=== PATIENT | male | born 1995 | race Caucasian/White ===

== ENCOUNTER → 2020-09-10 08:38 | Outpatient (BNVA) | payer OTHER, SELFPAY | PROVIDERS: PCP Physician Assistant; Visit Provider Surgery | DX: E66.01 Morbid (severe) obesity due to excess calories (principal); F17.210 Nicotine dependence, cigarettes, uncomplicated; Z68.43 Body mass index [BMI] 50.0-59.9, adult | CPT/HCPCS: 99202 ==

== ENCOUNTER 2020-09-15 07:15 | Outpatient (REF) | payer OTHER, SELFPAY ==
--- NOTE | ~2020-09-15 | XR_ITS ---
EXAMINATION: XR CHEST CLINICAL INFORMATION: Shortness of breath COMPARISON: None TECHNIQUE: 2 views of the chest were obtained. FINDINGS: Cardiac silhouette is normal in size. Lungs are mildly hypoinflated. Subtle linear opacity of the right lung base. No gross lobar consolidation. No pleural effusion or pneumothorax. No acute osseous abnormality. XR/XR chest 2V IMPRESSION: Subtle linear opacity although right lung base. This may represent atelectasis or attenuation of lung markings due to hypoinflated lungs, however, a developing infiltrate is also within the differential. Unfortunately there is no prior imaging available for comparison. Clinical correlation is recommended. Follow-up imaging can be obtained as clinically indicated.
--- NOTE | 2020-09-15 07:39 | ECG_ITS ---
Test Reason : R06.02 SOB Blood Pressure : / mmHG Vent. Rate : 079 BPM Atrial Rate : 079 BPM P-R Int : 134 ms QRS Dur : 090 ms QT Int : 378 ms P-R-T Axes : 066 044 025 degrees QTc Int : 433 ms Normal sinus rhythm Normal ECG No previous ECGs available Referred By: Sunita Domínguez Electronically Signed By:AGATA LAND MD
[2020-09-15 08:32] LABS: MANUAL DIFF FLAG NO
[2020-09-15 08:40] LABS: Basophils Percent Auto 0.5 % (0-2); Eosinophils Absolute Auto 0.2 X10*3/uL (0.0-0.4); Eosinophils Percent Auto 2.9 % (0-4); Hematocrit 45.9 % (42-52); Hemoglobin 14.6 g/dl (14.0-18.0); Imm Gran Abs Auto 0.03 X10*3/uL (0.00-0.03); Imm Gran Pct Auto 0.5 % (0.0-0.4); Lymphocytes Absolute Auto 2.2 X10*3/uL (1.2-4.9); Lymphocytes Percent Auto 35.8 % (20-40); Mean Corpuscular HGB Conc 31.8 g/dl (31.0-36.0); Mean Corpuscular Hemoglobin 27.3 pg (27.0-33.0); Mean Corpuscular Volume 85.8 fL (80-98); Mean Platelet Volume 10.6 fL (9.4-12.4); Monocytes Absolute Auto 0.6 X10*3/uL (0.1-1.2); Monocytes Percent Auto 8.9 % (2-11); Neutrophils Absolute Auto 3.2 X10*3/uL (2.0-8.3); Neutrophils Percent Auto 51.4 % (45-73); Platelet Count 282 X10*3/uL (160-400); Red Blood Count 5.35 X10*6/uL (4.60-5.80); Red Cell Distribution Width 13.1 % (11.0-16.0); White Blood Count 6.3 X10*3/uL (4.8-10.8)
[2020-09-15 09:18] LABS: Alanine Aminotransferase 46 U/L (0-40); Albumin Level 4.3 g/dL (3.5-5.0); Alkaline Phosphatase 69 U/L (39-117); Anion Gap 13 (12-20); Aspartate Amino Transferase 32 U/L (5-37); Bilirubin Total 0.5 mg/dL (0.0-1.0); Blood Urea Nitrogen 17 mg/dL (9-16); C Reactive Protein 0.44 mg/dL (< or = 0.50); Calcium 9.5 mg/dL (8.4-10.2); Carbon Dioxide 25 mmol/L (22-29); Chloride 106 mmol/L (96-108); Cholesterol 137 mg/dL; Estimated Glomerular Filt Rate > 60; Glucose Fasting 98 mg/dL (60-99); HDL Cholesterol 23 mg/dL; Iron 67 mcg/dL (45-160); LDL Cholesterol Calculated 87 mg/dl; Percent Iron Saturation 19 % (15-50); Potassium 4.9 mmol/L (3.3-5.1); Sodium 139 mmol/L (135-145); Total Iron Binding Capacity 348 mcg/dL (228-428); Total Protein 7.2 g/dL (6.5-8.0); Triglycerides 135 mg/dL; Unsaturated Iron Binding 281 ug/dL
[2020-09-15 09:19] LABS: Estimated Average Glucose 103 mg/dL; Hemoglobin A1c % 5.2 %
[2020-09-15 09:39] LABS: Thyroid Stimulating Hormone 2.48 uIU/mL (0.32-4.0); Vitamin D 25-OH Total 13.7 ng/mL (>30)
[2020-09-15 11:00] LABS: Vitamin B12 329 pg/mL (200-900)
[2020-09-16 12:56] LABS: Calcium (PTHI) 9.3 mg/dL (8.6-10.3); PTHI 59 pg/mL (14-64)
[2020-09-16 14:32] LABS: H Pylori Breath Test NOT DETECTED (NOT DETECTED)
[2020-09-18 15:56] LABS: Zinc 81 mcg/dL (60-130)
[2020-09-18 19:37] LABS: Vitamin A 51 mcg/dL (38-98)
[2020-09-19 13:12] LABS: Vitamin B1 9 nmol/L (8-30)
== END 2020-09-15 07:16 | disposition home or self-care (01) ==
LOC: HO.LAB 07:15
PROVIDERS: PCP Physician Assistant; Visit Provider Surgery
DX: Z01.818 Encounter for other preprocedural examination (principal); K91.2 Postsurgical malabsorption, not elsewhere classified; R06.02 Shortness of breath; Z90.3 Acquired absence of stomach [part of]
CPT/HCPCS: 36415; 71046; 80053; 80061; 82306; 82607; 83013; 83036; 83540; 83970; 84425; 84443; 84590; 84630; 85025; 86140; 93005; 99211

== ENCOUNTER → 2020-09-24 08:12 | Outpatient (BNVA) | payer OTHER, SELFPAY | PROVIDERS: PCP Physician Assistant; Visit Provider Surgery | DX: E66.01 Morbid (severe) obesity due to excess calories (principal); Z68.42 Body mass index [BMI] 45.0-49.9, adult | CPT/HCPCS: 99212 ==

== ENCOUNTER → 2020-10-08 08:08 | Outpatient (BNVA) | payer OTHER, SELFPAY | PROVIDERS: PCP Physician Assistant; Visit Provider Dietitian, Registered | DX: E66.01 Morbid (severe) obesity due to excess calories (principal); Z68.42 Body mass index [BMI] 45.0-49.9, adult | CPT/HCPCS: 97802 ==

== ENCOUNTER → 2020-10-29 14:41 | Outpatient (BNVA) | payer OTHER, SELFPAY | PROVIDERS: PCP Physician Assistant; Visit Provider Physician Assistant | DX: E66.01 Morbid (severe) obesity due to excess calories (principal); Z68.42 Body mass index [BMI] 45.0-49.9, adult | CPT/HCPCS: 99212 ==

== ENCOUNTER → 2020-11-18 08:14 | Outpatient (BNVA) | payer OTHER, SELFPAY | PROVIDERS: PCP Physician Assistant; Visit Provider Dietitian, Registered | DX: E66.01 Morbid (severe) obesity due to excess calories (principal); Z68.42 Body mass index [BMI] 45.0-49.9, adult | CPT/HCPCS: 97803 ==

== ENCOUNTER → 2020-12-22 11:01 | Outpatient (BNVA) | payer OTHER, SELFPAY | PROVIDERS: PCP Physician Assistant; Visit Provider Surgery ==

== ENCOUNTER 2024-02-07 18:01 | Inpatient (IN) | payer OTHER, SELFPAY ==
--- OUTSIDE RECORDS SUMMARY | 2024-02-07 18:03 | XMS_ITS | Continuity of Care Document ---
Author Organization [facility] ter Address [address] [place] [address]- Care Team Providers Care Hot Stick Man Name Role Phone Judy RUGGIERO, Kaleb Perez Primary Care Physi slava [place] [facility] [place] Date(s): 11/29/21 - 11/29/[address] [address]- Discharge Disposition: A-D/C Walkout Attending Physician: Not on Staff, Attending MD Admitting Physician: Not on Staff, Admitting MD Referring Physician: Not on Staff, Referring MD Allergies, Adverse Reactions, Alerts No Known Allergies Medications Albuterol (Eqv-ProAir HFA) Inhalation, Every 6 hours, 0 Refills, Maintenance, 07/27/21 9:51:00 EST, Partial fill upon patient request if the prescription is for a schedule II opioid drug. Start Date: 07/27/21 Status: Ordered Celecoxib By Mouth, 0 Refills, Maintenance, 07/27/21 9:52:00 EST, Partial fill upon patient request if the prescription is for a schedule II opioid drug. Start Date: 07/27/21 Status: Ordered Fiber Tabs = 625 mg, By Mouth, 4 times a day, 0 Refills, Maintenance, 07/27/21 9:52:00 EST, Partial fill upon patient request if the prescription is for a schedule II opioid drug. Start Date: 07/27/21 Status: Ordered Multivitamin Daily, 0 Refills, Maintenance, 07/27/21 9:52:00 EST, Partial fill upon patient request if the prescription is for a schedule II opioid drug. Start Date: 07/27/21 Status: Ordered Vitamin D 54241 iu oral capsule 1, capsule, By Mouth, Every week, # 30 capsule, Refills 0, Maintenance, 07/27/21 9:52:00 EST, Partial fill upon patient request if the prescription is for a schedule II opioid drug. Start Date: 07/27/21 Status: Ordered Problem List Condition Effective Dates Status Health Status Inform ant Gastroesophageal reflux disease(Confirmed) Active Severe obesity(Confirmed) Active Vital Signs Most recent to oldest [Reference Range]: 1 2 Oxygen Saturation [94-100 %] 100 % (11/29/21 5:28 PM) 98 % (11/29/21 5:06 PM) Pulse Rate [55-90 bpm] 78 bpm (11/29/21 5:28 PM) 95 bpm *H* (11/29/21 5:06 PM) Blood Pressure [90-138/55-84 mm Hg] 124/ 75mm Hg (11/29/21 5:28 PM) Respiratory Rate [16-30 br/min] 18 br/mi n (11/29/21 5:28 PM) Temperature [96.8-100.4 DegF] 98.6 DegF (11/29/21 5:28 PM) Mode of Delivery (Oxygen) Room air (11/29/21 5:28 PM) Room air (11/29/21 5:06 PM) Blood pressure sites Arm, left (11/29/21 5:28 PM) Temperature Route Oral (11/29/21 5:28 PM)
--- OUTSIDE RECORDS SUMMARY | 2024-02-07 18:03 | XMS_ITS | Continuity of Care Document ---
Author Organization [facility] Address [address] [place] [address]- Care Team Providers Care Spray Booth Operator Name Role Phone Judy RUGGIERO, Kaleb Perez Primary Care Physi slava Encounter [facility] [place] Date(s): 11/09/21 - 12/09/[address] [address] Allergies, Adverse Reactions, Alerts No Known Allergies [...] Start Date: 07/27/21 Status: Ordered Vitamin D 86407 iu oral capsule 1, capsule, By Mouth, Every week, # 30 capsule, Refills 0, Maintenance, 07/27/21 9:52:00 EST, Partial fill upon patient request if the prescription is for a schedule II opioid drug. Start Date: 07/27/21 Status: Ordered Problem List Condition Effective Dates Status Health Status Inform ant Gastroesophageal reflux disease(Confirmed) Active Severe obesity(Confirmed) Active
--- OUTSIDE RECORDS SUMMARY | 2024-02-07 18:03 | XMS_ITS | Continuity of Care Document ---
Author Organization [facility] Address [address] [place] [address]- Care Team Providers Care Domestic Laundry Worker Name Role Phone Judy RUGGIERO, Kaleb Perez Primary Care Physi slava [place] [facility] [place](s): 05/19/21 - 06/18/21 [facility] [address] [place] [address]- Attending Physician: Mandy Dickerson Admitting Physician: Mandy Dickerson Referring Physician: Mandy Dickerson Problem List Condition Effective Dates Status Health Status Inform ant Gastroesophageal reflux disease(Confirmed) Active
--- OUTSIDE RECORDS SUMMARY | 2024-02-07 18:03 | XMS_ITS | Continuity of Care Document ---
Author Organization [facility] Address [address] [place] [address]- Care Team Providers Care Satellite Installation Technician Name Role Phone Judy RUGGIERO, Kaleb Perez Primary Care Physi slava Encounter [facility] Date(s): 05/12/21 - 06/11/21 [facility] [address] [place] [id number] Problem List Condition Effective Dates Status Health Status Inform ant Gastroesophageal reflux disease(Confirmed) Active
--- OUTSIDE RECORDS SUMMARY | 2024-02-07 18:03 | XMS_ITS | Continuity of Care Document ---
Author Organization [facility] Address [address] [place] [address]- Care Team Providers Care Restoration Technician Name Role Phone Judy RUGGIERO, Kaleb Perez Primary Care Physi slava Encounter [facility] [place] Date(s): 05/30/22 - 06/29/[address] [address] Attending Physician: Mandy Dickerson Admitting Physician: AdmtrMandy Referring Physician: Admtr, Ar8 Allergies, Adverse Reactions, Alerts No Known Allergies [...] Start Date: 07/27/21 Status: Ordered Vitamin D 64358 iu oral capsule 1, capsule, By Mouth, Every week, # 30 capsule, Refills 0, Maintenance, 07/27/21 9:52:00 EST, Partial fill upon patient request if the prescription is for a schedule II opioid drug. Start Date: 07/27/21 Status: Ordered Problem List Condition Confirmation Course Effective Dates Status H ealth Status Informant Gastroesophageal reflux disease Confirmed Active Severe obesity Confirmed Active Patient Care team information Care Team Personnel Name: Kaleb Kim NP Position: Reference Physician Member Role: PCP Address: Address: [address] [place] [address]- Care Team Related Persons Name: KELSEY VELAZCO Address: home [address] [place] [address]
--- OUTSIDE RECORDS SUMMARY | 2024-02-07 18:04 | XMS_ITS | Continuity of Care Document ---
Author Organization [facility] Address [address] [place] [address]- Care Team Providers Care Harbour Master Name Role Phone Judy RUGGIERO, Kaleb Perez Primary Care Physi slava Encounter [facility] [place] Date(s): 11/17/21 - 06/29/[address] [address]- Attending Physician: Alma Streeter MD Admitting Physician: Alma Streeter MD Referring Physician: Kaleb Kim NP Allergies, Adverse Reactions, Alerts No Known Allergies [...] Start Date: 07/27/21 Status: Ordered Vitamin D 79829 iu oral capsule 1, capsule, By Mouth, [...] Care team information Care Team Personnel Name: Judy RUGGIERO, Kaleb Perez Position: Reference Physician Member Role: PCP Address: Address: [address] [place] [address]- Care Team Related Persons Name: KELSEY VELAZCO Address: home [address] [place] [address]
--- OUTSIDE RECORDS SUMMARY | 2024-02-07 18:04 | XMS_ITS | Continuity of Care Document ---
Author Organization [facility] Address [address] [place] [address] , [address] [place], [place] - Encounter [facility] [id number] Date(s): 04/08/21 - 04/08/21 [facility] [address] [place] [facility] 2nd floor [place], [place] - Discharge Disposition: Discharged to home Attending Physician: Nilam Long Allergies, Adverse Reactions, Alerts No Known Medication Allergies Assessment and Plan Future Scheduled Tests Laboratory* COVID Surveillance 04/08/21 * Vitamin D 25-OH, Total Blood Level 04/05/21 * TIBC Panel (Iron, TIBC & Trans Sat) 04/06/21 * BMP 04/05/21 * CBC with diff 04/05/21 * Cardiac Risk Evaluation/Lipid Panel 04/06/21 * Ferritin Blood Level 04/05/21 * Folate Blood Level 04/06/21 * Glycated Hemoglobin A1C 04/06/21 * LFT(ALB/Alk Phos/ALT/AST/Tot Bili/Dir Bili/TP) 04/05/21 * PAB 04/05/21 * PT includes INR 04/05/21 * TSH 04/06/21 * Thyroxine Free 04/05/21 * Vitamin B12 Blood Level 04/06/21 Medications albuterol 2.5 mg/3 mL (0.083%) inhalation solution 2.5 MG = 3 ML, NEB, Q6H, PRN Wheezing/SOB, 0 Refill(s) Start Date: 03/30/21 Status: Ordered ibuprofen 600 mg oral tablet 600 MG = 1 TAB, PO, Q8H, PRN Pain Scale - Moderate 4-6, 0 Refill(s) Start Date: 01/20/21 Status: Ordered Multiple Vitamins oral tablet = 1 TAB, PO, Daily, # 30 TAB, 0 Refill(s), Other Start Date: 04/08/21 Status: Ordered ProAir Digihaler 90 mcg/inh inhalation powder = 2 PUFF, Inhalation, Q6H, PRN Wheezing/SOB, 0 Refill(s) Start Date: 03/30/21 Status: Ordered Problem List Condition Effective Dates Status Health Status Inform ant Asthma(Confirmed) Active BMI 45.0-49.9, adult(Confirmed) Active CPAP treatment(Confirmed) Active Depression(Confirmed) Active GERD (gastroesophageal reflu x disease)(Confirmed) Active Morbid obesity(Confirmed) Active VANCE - Obstructive sleep apnea(Confirmed) Active Procedures Procedure Date Related Diagnosis Body Site Status None Completed Vital Signs Most recent to oldest [Reference Range]: 1 Height 167.6 cm (04/08/21 9:31 AM) Weight 139 KG (04/08/21 9:31 AM) Body Mass Index 49.48 (04/08/21 9:31 AM) Body Surface Area 2.63 m2 (04/08/21 9:31 AM) Social History Social History Type Response Alcohol Alcohol Use: Current . Alcohol Type: Beer. Frequency: 1-2 times per year. Substance Abuse Use: Never. Tobacco Smoking tobacco use: Former smoker, quit more than 30 days ago. Sex
--- OUTSIDE RECORDS SUMMARY | 2024-02-07 18:04 | XMS_ITS | Continuity of Care Document ---
Author Organization [facility] Address Unknown Care Team Providers Care Civil Engineering Drafter Name Role Phone Nardapamela Aye Primary Care Physician Unavailab le Encounter HISFIN [phone] Date(s): 09/15/21 - 09/16/[address] [place] [address] Discharge Disposition: Pending HIMS Coding Attending Physician: Melissa Powers DO Admitting Physician: Melissa Powers DO Allergies, Adverse Reactions, Alerts No Known Medication Allergies Substance Reaction Severity Status shellfish Active Assessment and Plan Extracted from: Title:Preoperative H&P Author:Max Powers DO Date:09/15/21 MORBID OBESITY, OBSTRUCTIVE SLEEP APNEA Future Appointments Appointment Date:09/21/2021 09:00:00 AM Scheduled Provider:Michelle Armando Location:[facility] Appointment Type:[facility] Office Visit 30 Future Scheduled Tests Laboratory* COVID Surveillance 04/08/21 [...] * Vitamin B12 Blood Level 04/06/21 Medications acetaminophen 325 mg oral tablet 975 MG = 3 TAB, PO, Q6H, 0 Refill(s) Start Date: 09/16/21 Status: Ordered albuterol 2.5 mg/3 mL (0.083%) inhalation solution 2.5 MG = 3 ML, NEB, Q6H, PRN Wheezing/SOB, 0 Refill(s) Start Date: 03/30/21 Status: Ordered Multiple Vitamins oral tablet = 1 TAB, PO, Daily, # 30 TAB, 0 Refill(s), Other Start Date: 04/08/21 Status: Ordered omeprazole 40 mg oral delayed release capsule 40 MG = 1 CAP, PO, Daily, start the day after you leave the hospital, # 90 CAP, 1 Refill(s), Pharmacy: [facility] #[id number], 167.6, cm, 04/08/2021 14:58:00 EST, Height, 139, KG, 04/08/2021 14:58:00 EST, Weight Start Date: 08/11/21 Status: Ordered ProAir Digihaler 90 mcg/inh inhalation powder = 2 PUFF, Inhalation, Q6H, PRN Wheezing/SOB, 0 Refill(s) Start Date: 03/30/21 Status: Ordered ursodiol 250 mg oral tablet 250 MG = 1 TAB, PO, BID, with food, start 2 weeks after surgery, # 180 TAB, 1 Refill(s), Pharmacy: [facility] #[id number], 167.6, cm, 04/08/2021 14:58:00 EST, Height, 139, KG, 04/08/2021 14:58:00 EST, Weight Start Date: 08/11/21 Status: Ordered Problem List Condition Effective Dates Status Health Status Inform ant Asthma(Confirmed) Active BMI 45.0-49.9, adult(Confirmed) Active CPAP treatment(Confirmed) Active Depression(Confirmed) Active GERD (gastroesophageal reflu x disease)(Confirmed) Active Morbid obesity(Confirmed) Active VANCE - Obstructive sleep apnea(Confirmed) Active Vitamin D deficiency(Confirmed) Active Procedures Procedure Date Related Diagnosis Body Site Status Esophagogastroduodenoscopy 2021 Completed Results Laboratory List Name Date BMP 09/16/21 CBC without diff 09/16/21 Magnesium Blood Level 09/16/21 Phosphorous Blood Level 09/16/21 Most recent to oldest [Reference Range]: 1 Creatinine Clearance 194.35 mL/min 1 (09/16/21 6:53 AM) CBC wo Diff Status See Below (09/16/21 6:53 AM) Estimated GFR 128 mL/min/1.73 sqm 2 (09/16/21 6:53 AM) ANION GAP [4-12] 8 (09/16/21 6:53 AM) BMP See Below (09/16/21 6:53 AM) BUN [8-22 mg/dL] 8 mg/dL (09/16/21 6:53 AM) CA [8.4-10.3 mg/dL] 9.1 mg/dL (09/16/21 6:53 AM) CL [98-107 MMOL/L] 99 MMOL/L (09/16/21 6:53 AM) GLU [70-99 mg/dL] 123 mg/dL *High* (09/16/21 6:53 AM) HCT [40.0-52.0 %] 42.6 % (09/16/21 6:53 AM) HGB [13.3-17.7 G/DL] 14.1 G/DL (09/16/21 6:53 AM) MG [1.7-2.4 mg/dL] 2.3 mg/dL (09/16/21 6:53 AM) MCH [26.5-34.0 pg] 27.6 pg (09/16/21 6:53 AM) MCHC [31.5-36.3 G/DL] 33.1 G/DL (09/16/21 6:53 AM) MCV [80.0-100.0 FL] 83.5 FL (09/16/21 6:53 AM) MPV [6.5-12.8 FL] 10.1 FL (09/16/21 6:53 AM) PHOS [2.5-4.5 mg/dL] 3.5 mg/dL (09/16/21 6:53 AM) K [3.5-5.0 MMOL/L] 4.1 MMOL/L (09/16/21 6:53 AM) RBC [4.40-5.90 /PL] 5.10 /PL (09/16/21 6:53 AM) RDW [11.5-14.5 %] 13.2 % (09/16/21 6:53 AM) NA [136-146 MMOL/L] 132 MMOL/L *LOW* (09/16/21 6:53 AM) TOTAL CO2 [24-32 MMOL/L] 25 MMOL/L (09/16/21 6:53 AM) WBC [3.9-10.6 / nl] 12.6 / nl *High* (09/16/21 6:53 AM) EMBOSSING MACHINE OPERATOR [0.70-1.30 mg/dL] 0.70 mg/dL (09/16/21 6:53 AM) PLATELET [150-400 / nl] 320 / nl (09/16/21 6:53 AM) 1Result Comment: Estimated by Cockcroft-Gault method. EMBOSSING MACHINE OPERATOR clinical event id = [id number] 2Result Comment: GFR Categories in CKD GFR Category mL/min/1.73 m^2 Terms G1 >=90 Normal or high G2 60-89 Mildly decreased* G3a 45-59 Mildly to moderately decreased G3b 30-44 Moderately to severely decreased G4 15-29 Severely decreased G5 <15 Kidney failure Abbreviations: CKD, chronic kidney disease; GFR, glomerular filtration rate. *Relative to young adult level. In the absence of evidence of kidney damage, neither GFR category G1 nor G2 fulfill the criteria for CKD Estimated GFR is calculated without a race coefficient using CKD-EPI Creatinine Equation(2020). Values should be interpreted in the context of the patient's full clinical presentation. Reference: Hugh Hale et al. A Unifying Approach for GFR Estimation: Recommendations of the NKF-ASN Task Force on Reassessing the Inclusion of Race in Diagnosing Kidney Disease. Journal of the [place] Society of Nephrology : JASN 2020 Vital Signs Most recent to oldest [Reference Range]: 1 2 3 2nd Nurse Skin Check Jamaal MARCIAL, Marisol Pfeiffer (09/15/21 6:39 PM) Yu MARCIAL, Carly (09/15/21 10:38 AM) Temperature Oral [36.1-38 DegC] 36.4 DegC (09/16/21 2:06 PM) 36.8 DegC (09/16/21 9:44 AM) 37.1 DegC (09/16/21 3:28 AM) Temperature Temporal [36.1-38 DegC] 36.8 DegC (09/15/21 5:00 PM) 37 DegC (09/15/21 3:00 PM) 36.8 DegC (09/15/21 2:00 PM) Cardiac Rhythm Normal Sinus Rhythm (09/15/21 6:30 PM) Normal Sinus Rhythm (09/15/21 12:30 PM) Normal Sinus Rhythm (09/15/21 11:30 AM) Heart Rate [51-100 bpm] 81 bpm (09/16/21 2:06 PM) 85 bpm (09/16/21 9:44 AM) 74 bpm (09/16/21 3:28 AM) Heart Rate Location Device (09/16/21 2:06 PM) Device (09/16/21 9:44 AM) Device (09/16/21 3:28 AM) Respiratory Rate [13-20 br/min] 18 br/min (09/16/21 9:44 AM) 18 br/min (09/16/21 3:28 AM) 17 br/min (09/16/21 12:08 AM) Pulse Ox [89 %] 95 % (09/16/21 2:06 PM) 97 % (09/16/21 9:44 AM) 97 % (09/16/21 3:28 AM) Oxygen Source Room Air (09/16/21 2:06 PM) Room Air (09/16/21 9:44 AM) Non-invasive ventilation (09/16/21 3:28 AM) Oxygen Flow [0-80 L/min] 3 L/min (09/15/21 9:57 PM) 3 L/min (09/15/21 5:57 PM) 3 L/min (09/15/21 5:00 PM) Blood Pressure [101-170/(reference range unavailable) mmHg] 163/94mmHg (09/16/21 2:06 PM) 167/94mmHg (09/16/21 9:44 AM) 165/94mmHg (09/16/21 3:28 AM) Blood Pressure Mean 104 mmHg (09/15/21 5:00 PM) 123 mmHg (09/15/21 4:00 PM) 126 mmHg (09/15/21 3:30 PM) Manual Blood Pressure Mean 117 (09/16/21 2:06 PM) 118 (09/16/21 9:44 AM) 118 (09/16/21 3:28 AM) Blood Pressure Location Arm Right Upper (09/16/21 2:06 PM) Arm Left Upper (09/16/21 9:44 AM) Arm Left Upper (09/16/21 3:28 AM) Height 167.6 cm (09/16/21 8:50 AM) 167.6 cm (09/15/21 6:15 AM) 167.6 cm (08/25/21 7:56 AM) Weight 123 KG (09/15/21 6:15 AM) 145.5 KG (08/25/21 7:56 AM) Body Mass Index 0 (09/16/21 8:50 AM) 43.79 (09/15/21 6:15 AM) 51.8 (08/25/21 7:56 AM) Body Surface Area 0 m2 (09/16/21 8:50 AM) 2.46 m2 (09/15/21 6:15 AM) 2.69 m2 (08/25/21 7:56 AM) [place] Body Weight Calculated 64 KG (08/25/21 7:56 AM) Weight Method Measured weight (09/15/21 6:15 AM) Measured weight (08/25/21 7:56 AM) Social History Social History Type Response Alcohol Alcohol Use: Current . Alcohol Type: Beer. Frequency: 1-2 times per year. Tobacco Smoking tobacco use: Former smoker, quit more than 30 days ago. Smoking Status Never entered on: 01/20/21 Sex Hospital Discharge Instructions Patient Education 09/16/2021 09:43:03 Incentive Spirometer: General Info Learning About Using an Incentive Spirometer What is an incentive spirometer? An incentive spirometer is a handheld device that exercises your lungs and measures how much air you can breathe in. It tells you and your doctor how well your lungs are working. The spirometer can help you practice taking deep breaths. Deep breaths can help open your airways and prevent fluid or mucus from building up in your lungs, and make it easier for you to breathe. Using the device can help prevent serious lung infections like pneumonia, improve your breathing after you've had pneumonia or surgery, and keep your airways open and lungs active if you can't get out of bed. How do you use an incentive spirometer? When you use an incentive spirometer, you breathe in air through a tube that is connected to a large air column containing a piston or ball. As you breathe in, the piston or ball inside the column moves up. The height of the piston or ball shows how much air you breathed in. You may feel lightheaded when you breathe in deeply for this exercise. If you feel dizzy or feel like you're going to pass out, stop the exercise and rest. Each time you do this exercise, keep track of your progress by writing down how high the piston or ball moves up the column. 1. Move the slider on the outside of the large column to the level that you want to reach or that your doctor recommended. 2. Sit or stand up straight, and hold the spirometer in front of you. Be sure to keep it level. 3. To start, breathe out normally. Then close your lips tightly around the mouthpiece. Make sure that you don't block the mouthpiece with your tongue. 4. Take a slow, deep breath. Breathe in as deeply as you can. As you breathe in, the piston or ball inside the large column willmove up. 1. Try to move the piston or ball as high up as you can or to the level your doctor recommended. 2. When you can't breathe in anymore, hold your breath for 2 to 5 seconds. 5. Relax, take the mouthpiece out of your mouth, and breathe out normally. 6. Repeat steps 1 through 5 as many times as your doctor tells you to. 7. After you've taken the recommended number of breaths, try to cough a few times. This will help loosen any mucus that has built up in your lungs. It will make it easier for you to breathe. If you just had surgery on your belly or chest, hold a pillow over your cut (incision) whenyou cough. Follow-up care is a briones part of your treatment and safety. Be sure to make and go to all appointments, and call your doctor if you are having problems. It's also a good idea to know your test resultsand keep a list of the medicines you take. Where can you learn more? Go to https://www.Exploredge.net/patientEd Enter B979 in the search box to learn more about Learning About Using an Incentive Spirometer. Current as of: November 24, 2020?Content Version: 13.1 ?? [id number] [employer]. Care instructions adapted under license by your healthcare professional. If you have questions about a medical condition or this instruction, always ask your healthcare professional. [employer] disclaims any warranty or liability for your use of this information. 09/16/2021 09:43:01 Constipation Constipation: Care Instructions Overview Constipation means that you have a hard time passing stools (bowel movements). People pass stools from 3 times a day to once every 3 days. What is normal for you may be different. Constipation may occur with pain in the rectum and cramping. The pain may get worse when you try to pass stools. Sometimes there are small amounts of bright red blood on toilet paper or the surface of stools. This is because of enlarged veins near the rectum (hemorrhoids). A few changes in your diet and lifestyle may help you avoid ongoing constipation. Your doctor may also prescribe medicine to help loosen your stool. Some medicines can cause constipation. These include pain medicines and antidepressants. Tell your doctor about all the medicines you take. Your doctor may want to make a medicine change to ease yoursymptoms. Follow-up care is a briones part of your treatment and safety. Be sure to make and go to all appointments, and call your doctor if you are having problems. It's also a good idea to know your test resultsand keep a list of the medicines you take. How can you care for yourself at home? Drink plenty of fluids. If you have kidney, heart, or liver disease and have to limit fluids, talk with your doctor before you increase the amount of fluids you drink. ??? Include high-fiber foods in your diet each day. These include fruits, vegetables, beans, and whole grains. ??? Get at least 30 minutes of exercise on most days of the week. Walking is a good choice. You also may want to do other activities, such as running, swimming, cycling, or playing tennis or team sports. ??? Take a fiber supplement, such as Citrucel or Metamucil, every day. Read and follow all instructions on the label. ??? Schedule time each day for a bowel movement. A daily routine may help. Take your time having a bowel movement, but don't sit for more than 10 minutes at a time. And don't strain too much. ??? Support your feet with a small step stool when you sit on the toilet. This helps flex your hipsand places your pelvis in a squatting position. ??? Your doctor may recommend an [id number] laxative to relieve your constipation. Examples are Milk of Magnesia and MiraLax. Read and follow all instructions on the label. Do not use laxativeson a long-term basis. When should you call for help? Call your doctor now or seek immediate medical care if: ??? You have new or worse belly pain. ??? You have new or worse nausea or vomiting. ??? You have blood in your stools. Watch closely for changes in your health, and be sure to contact your doctor if: ??? Your constipation is getting worse. ??? You do not get better as expected. Where can you learn more? Go to https://www.Exploredge.net/patientEd Enter P343 in the search box to learn more about Constipation: Care Instructions. Current as of: November 19, 2020?Content Version: 13.1 ?? [employer]. Care instructions adapted under license by your healthcare professional. If you have questions about a medical condition or this instruction, always ask your healthcare professional. [employer] disclaims any warranty or liability for your use of this information. 09/15/2021 10:56:36 Bariatric Discharge Instructions [facility]) Weight Loss Surgery Discharge Instructions ACTIVITY: ??? Walk frequently to prevent blood clots to your legs and lungs. ??? OK to climb stairs. ??? No sexual activity, lifting over 15 lbs, or strenuous activity for 4 weeks. ??? No driving for 2 weeks or while taking pain medication. ??? OK to shower, avoid baths or swimming for 2 weeks. WOUND CARE: ??? Keep incisions clean and dry, pat dry after showers. ??? If a wound has gauze over it, you can remove it after the first day. ??? Steri-Strips can get wet in the shower. If they do not fall off after 5-7 days, remove them. DIET: ??? Clear liquid diet (translucent liquids, broth, jello, etc) for 48 hours. Apple sauce is fine with medications. ??? Then Full liquid diet (opaque, low fat milk, protein shakes, and blended soups) for 2 weeks. ??? A Liquid diet is anything that you can drink through a straw, but DO NOT DRINK THROUGH A STRAW. ??? Review your Life Skills Progression Guidelines. REMINDER: ??? Your pouch can only hold 1 -2 oz at a time at first, so you will feel full very quickly. ??? Wait 30 minutes before or after eating to drink. ??? Refer to your Life Skills Progression Guidelines and your protein goals. ??? Sip slowly and in an upright position, don???t drink and lay down right away. ??? Your goal should be to work up to 48-64 oz fluid/day, you may only get to 30 oz at first. ??? Sugar free popsicles get fluid in slowly and keep your mouth moist. CALL YOUR SURGEON IF YOU EXPERIENCE: ??? Pain in legs (especially calves) ??? Vomiting blood, coughing up blood, or blood in stool ??? Fever over 101.5 ??? Heart rate greater than 110 over a period of 15 minutes ??? Severe pain uncontrolled with pain medication ??? Persistent vomiting for over 4 hours ??? Severe shortness of breath, or chest pain ??? Redness with warmth and drainage from your incision ??? IN CASE OF LIFE THREATENING EMERGENCY CALL 911 MEDICATIONS: ??? NO ASPIRIN OR NSAIDS (like Advil or Aleve) unless cleared by your surgeon ??? Tylenol as needed for pain. Use the prescribed narcotic only if needed after taking Tylenol. ??? Start taking your vitamins at home. ??? Ursoforte (if you still have your gallbladder) to start 2 weeks after your surgery. ??? Prevacid/Omeprazole/Nexium, once a day, starting when you get home from surgery. FOLLOW UP: ??? Call the surgeon???s office to schedule a follow up appointment in 10-14 days ??? Schedule with the outpatient Weight management team within 3 weeks ??? Call the Mounter or [employer] Specialist/Dietitian for questions about your diet ??? Contact the prescribing provider for any needed medicine changes or adjustments 09/15/2021 10:56:34 Bariatric DIET Progression Instructions [facility]) Nutrition Guidelines after Weight Loss Surgery Diet Progression and Goals Main Nutrition Goals after Surgery: ??? Prevent drying out (dehydration) ??? Limit nutrition-related symptoms ? ? Meet protein, fluid and vitamin & mineral needs ??? Optimize healthy weight loss Rules to Live By: ??? Eat 3 meals per day and 1-2 small snacks as necessary, to meet your nutritional needs. ??? Take small bites, chew well, allow 15-20 minutes per meal, and stop eating as soon as you feel full. ??? Get at least 70 g protein every day. ??? Do not drink with meals. Wait 30 minutes before and after a meal before drinking. ??? No straws, caffeine or carbonated beverages. ??? Sip water, calorie-free non-carbonated beverages or protein drinks between meals. Your goal is 6-8 cups a day (48-64 oz.). ??? Walk. Aim for 30 minutes aerobic exercise a day, 3-7 times per week. Add resistance training tomaintain muscle mass 2-3 times per week. (With doctor/nurse practitioner approval.) ??? Avoid sugar and sugar sweetened foods. They provide excess, empty calories. ??? Avoid Alcohol. It can cause liver damage. ??? You have special vitamin and mineral needs for the rest of your life. See the Vitamin/Mineral Guide. ??? Long-term follow-up is a briones to successful weight loss and maintenance and continued good health! Make and keep your follow-up appointments with all of your bariatric team members. Get follow-up labs as recommended to ensure you do not become malnourished. Vitamin and Mineral Guide Dietary supplements are like prescriptions ??? they are not optional. Serious irreversible nutritional deficiencies can develop if you do not continue to take your vitamin and mineral supplements forthe rest of your life. Your digestive system has been permanently altered and certain nutrients arenot absorbed as usual. To avoid nausea, do not take vitamins on an empty stomach. Divide all throughout the day. Take calcium and iron 4 hours apart. Do not take supplements with tea or coffee. Multivitamin 1 Adult chewable multi-vitamin with iron, such as Centrum. Formulas for 50 years or older do not contain iron. Vitamin B12 (bypass and sleeve only) 500 mcg per day Must be sublingual tablet or liquid. Hold under tongue for as long as you can. Needs can change with time. Have regular labs drawn to determine needs. Calcium 2 chewable calcium citrate + vitamin D supplements = 1,200 mg/d. Iron Take a multivitamin that contains iron. Take extra iron as recommended by your doctor, based on your lab reports. Post-Bariatric Surgery Diet Progression ??? First 2 days after surgery Clear liquids You should eat sugar free or low sugar (less than 6 grams sugar per serving) clear beverages, sugarfree flavored gelatin, clear broth and clear protein drinks. No fruit juices. ??? Phase 1: Weeks 1 and 2 Full liquids The Food Texture Progression Table (below) lists appropriate foods for this phase of your diet. ??? If your height is between: ??? Your daily protein needs: ??? 4??? 10?? and 5??? 2? 70 grams ??? 5??? 3?? and 5??? 7? 80 grams ??? 5??? 8?? and 5??? 11? 90 grams ??? 6??? and 6??? 4? 100 grams Fluids and Protein: Meeting your fluid and protein goals is your priority at this time, Your fluid goal is 48-64 oz per day. You will need to use protein supplements for up to a year to meet your needs. Keep food records to be sure you are meeting your needs. ??? Phase 2: Weeks 3 to 4 Pureed Foods The stomach outlet (stoma) is reduced to the size of the eraser on a pencil. Only liquids and pureed foods will fit through this opening for the first 6 weeks. Follow the nutrition guidelines to prevent vomiting or blockage and possible re-hospitalization. Remember, your stomach is the size of an egg at this time. The Food Texture Progression Table (below) lists foods for this phase of your diet. Use a snuff blender or mexican food cook and puree food with a small amount of liquid until smooth. You can also use baby foods. Suggestion: Pour pureed food into ice cube trays and freeze. Empty into baggies and label. Each cube is 1 oz. of food. Fluids and Protein. Meeting your fluid and protein goals is your priority at this time. Your fluid goal is 48-64 oz. per day. You will need to use protein supplements for at least a year to meet yourneeds. Keep food records to be sure you are meeting your needs. Meal Size???by 4 weeks, meal size will be ??? to ?? cup (3-4 ounces). It should take 30 minutes to eat a meal or drink 8 oz. of fluid. Phase 3: Week 5-8 (or longer depending on tolerance) Soft Solid Food Progression Try new foods one at a time. Try foods that are soft and moist with no skins, seeds or membranes. Chew food well and eat slowly to avoid blocking the stomach outlet. The Food Texture Progression Table (below) lists appropriate foods for this phase. Increase variety: At this time, you need to add other food groups that offer carbohydrates and fatsto save the protein for your muscles. In addition to your protein, you should eat: 2 Dairy, 2 Vegetable, 2 Fruit, 2 Starch and 3 fat servings. ??? Phase 4: Beyond Week 8 Increasing variety and balancing intake As soon as you are tolerating phases 1 and 2, you are ready for a regular diet. Be careful with rawfruits and vegetables. Peel fruits with tough skins and toast breads. Dry meats are hard to digest,so use a moist cooking method. The Food Texture Progression Table (below) lists appropriate foods for this phase of your diet. Balance your meals and snacks with all food groups. Include: 2 Dairy, 4 Starch, 2 Fruit, 2 Vegetable, 3 Fat and 6 Protein servings daily. Vitamins and minerals are critical to your life long health. See the Vitamin Mineral Guide. Food Texture Progression Food Type Phase 1: Clear & Full Liquids (first 2 weeks) Phase 2: Pureed foods (Week 3 to 4) Phase 3: Soft solid foods (Weeks 5 to 8) Phase 4: Firmer foods, Regular Diet Meats, fish, poultry, eggs Broth Pureed chicken, turkey, fish, eggs, or baby food (no pork or beef) Moist chicken and turkey (no skin), fish & shellfish, tofu, scrambled eggs, lean deli meats, creamy peanut butter Chicken, turkey, veal, pork tenderloin, ground meat, fish & shellfish, meat substitute (soy, tofu), lentils, beans Dairy Skim or 1% milk, low carb milk, low fat soy milk, strained low fat cream soups Skim or low-fat milk, low fat cottage cheese, fat-free ricotta cheese, light, low-carb or Occitan yogurt, low-fat, shredded cheese mixed with warm pureed food Low fat cottage cheese and cheese slices, part-skim ricotta cheese, ???light??? yogurt Low fat cottage cheese, part-skim ricotta cheese, ???light??? yogurt, low fat cheese cubes/slices Vegetables Vegetable juice Cooked, pureed vegetables No fibrous or stringy vegetables (asparagus, corn, celery) Soft cooked vegetables No fibrous or stringy vegetables (asparagus, corn, celery) or tough skins (tomato, eggplant, squash) Raw and cooked vegetables No raw fibrous or stringy vegetables (asparagus, corn, celery) Fruit None Pureed canned fruits (drained), unsweetened applesauce, bananas, baby food fruits Canned (drained) or fresh fruit with no skin, unsweetened applesauce Fruits with soft skin, canned fruit (in juice) Starch Pureed mashed potatoes, oatmeal, cream of wheat Soft cooked whole grain noodles, potatoes, cooked cereal Whole grain crackers, unsweetened cooked or ready to eat cereals, whole grain noodles, potatoes Other Decaf tea/coffee, water, non-carbonated calorie-free liquids, protein shakes, sugar-free jello or popsicles Decaf tea/coffee, water, non-carbonated calorie-free liquids, protein shakes, sugar-free jello or popsicles Decaf tea/coffee, water, non-carbonated calorie-free liquids, sugar-free jello or popsicles Decaf tea/coffee, water, non-carbonated calorie-free liquids, sugar-free jello or popsicles Care Team Personnel Name: Aye Gates PA-C
--- OUTSIDE RECORDS SUMMARY | 2024-02-07 18:04 | XMS_ITS | Continuity of Care Document ---
Author Organization [facility] Address [address] [place] [id number] Care Team Providers Care Invoicing Specialist Name Role Phone Judy RUGGIERO, Kaleb Perez Primary Care Physi slava Encounter [facility] Date(s): 05/13/21 - 06/12/21 [facility] [address] [place] [id number]- Problem List Condition Effective Dates Status Health Status Inform ant Gastroesophageal reflux disease(Confirmed) Active
[2024-02-07 18:28] VITALS: BP 137/87; PULSE 106; RESP 16; TEMP 36.7; O2SAT 98
--- NOTE | 2024-02-07 18:39 | PC.NURSE ---
Pt arrived to the unit from [facility] @ 1625 via wheelchair and has an accepted CV. Vitals obtained, skin check performed and pt oriented to the unit. Pt was pleasant, calm, and cooperative and denies si/hi/avh and reports depression and anxiety as low . Admission to be completed by oncoming RN
[2024-02-07 18:44] VITALS: BMI 28.9
--- NOTE | 2024-02-08 00:14 | PC.ADMIT ---
Patient admitted to seeking treatment due to Depression and ADHD. Onset of symptoms occurred in teen years and exacerbated approximately 2 months ago. Factors that contribute to decline are returning to [place] from [place], recent miscarriage of , strained relationship with 6 year old son, grief from loss of a daughter and challenges of co-parenting with ex-wives. Prior to admission patient had been reported to be responding to internal stimuli and running into montes. Patient admits to use of THC and non-compliance with medications. Danny presents as alert and oriented in all spheres, calm, cooperative and open to treatment. Patient endorses anxiety and depression. Denies SI/HI/AVH. He is neatly groomed, appears stated age, makes good eye contact and is able to answer questions and participate in Admission Process. Patient reports stable housing, supportive family and has outpatient providers through [facility] although has not yet seen his prescriber. Medications include Bupropion 150 mg and Atomexetine 80 mg which he has not taken in at least a week. Patient signed CV, was oriented to unit, placed on 15 minute checks. Hospitalist consult will be requested.
[2024-02-08 07:00] VITALS: BMI 28.9
[2024-02-08 08:00] VITALS: BP 137/89; PULSE 89; RESP 16; TEMP 36.4; O2SAT 99
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
[2024-02-08 20:00] VITALS: BP 153/90; PULSE 90; RESP 16; TEMP 36.3; O2SAT 99
[2024-02-08] MEDS: QUEtiapine Fumarate 50 MG TABLET PO (22:30)
[2024-02-08] MEDS: lamoTRIgine 25 MG TABLET PO (22:30)
[2024-02-09 08:00] VITALS: BP 157/80; PULSE 99; RESP 16; TEMP 37.7; O2SAT 98
[2024-02-09] MEDS: buPROPion HCl XL 150 MG TAB.ER.24H PO (08:47)
[2024-02-09] MEDS: Flu Vacc TS2024-25(6mos up)/PF 0.5 ML SYRINGE IM (09:01)
--- NOTE | 2024-02-09 11:39 | HO.PSYCHPN ---
Subjective Subjective Date of Service: 02/09/24 Reason For Visit: Adjustment disorders, w/ mixed anxiety Interim History: Reports feeling good. States he was able to sleep, however team report minimal sleep. 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 Tolerated Lamictal, Seroquel. Will increase Seroquel this evening and decrease Wellbutrin. is scheduled to visit. Medication Compliance: Yes Side effects from medications: No Attending Groups: Intermittent Review of Systems Acute medical concerns: No Medical Review of Systems: unchanged Review of Systems Review of Systems Yes all other systems are reviewed and are negative Mental Status Exam Mental Status Exam Patient Appearance: Fatigued Patient Orientation: Person, Place, Time and Situation Level of Consciousness: Alert Patient Behavior: Anxious, Distractible and Good Eye Contact Mood Description: Anxious and Apprehensive Affect Description: Anxious and Apprehensive Patient Cognition Impaired: No Ability to Follow Directions: Good Speech Pattern: Spontaneous Speech Memory Description: Episodic Impaired Hallucinations: None Perceptual Disturbances: Depersonalization and Derealization Thought Process: Racing and Distracted Thought Content: positive for Circumstantial and positive for Perseveration Depressive Symptoms: Increased Anxiety, Increased Irritability and Difficulty Concentrating Abnormal Motor Activity Signs and Symptoms: Restlessness Judgement: Fair Diagnostics Vital Signs (24Hr): Vital Signs - 24 hr 02/08/24 20:00 02/09/24 08:00 Temperature 97.3 F 99.8 F Pulse Rate 90 99 Respiratory Rate 16 16 Blood Pressure 153/90 H 157/80 H Pulse Oximetry 99 98 Oxygen Delivery Method Room Air Room Air BMI result Body Mass Index 28.9 Medications Medications Current Medications Acetaminophen (Acetaminophen 325 Mg Tablet) 650 mg PO Q6H PRN PRN Reason: Headache/Pain Mild Scale (1-3) Al Hydroxide/Mg Hydroxide (Magnesium Hydrox/Alum Hydrox 30 Ml Oral.Susp) 30 ml PO Q6H PRN PRN Reason: Heartburn/Nausea Bupropion HCl (Bupropion Hcl Xl 150 Mg Tab.Er.24h) 150 mg PO DAILY [facility] Last Admin: 02/09/24 08:47 Dose: 150 mg Hydroxyzine HCl (Hydroxyzine Hcl 25 Mg Tablet) 25 mg PO Q6H PRN PRN Reason: Anxiety Lamotrigine (Lamotrigine 25 Mg Tablet) 25 mg PO BEDTIME [facility] Last Admin: 02/08/24 22:30 Dose: 25 mg Magnesium Hydroxide (Milk Of Magnesia 30 Ml Oral.Susp) 30 ml PO DAILY PRN PRN Reason: Constipation Nicotine Polacrilex (Nicotine Polacrilex 2 Mg Gum) 4 mg BUCCAL Q2H PRN PRN Reason: Nicotine Cravings Quetiapine Fumarate (Quetiapine Fumarate 25 Mg Tablet) 25 mg PO BID PRN PRN Reason: anxiety, agitation Quetiapine Fumarate (Quetiapine Fumarate 50 Mg Tablet) 50 mg PO BEDTIME [facility] Last Admin: 02/08/24 22:30 Dose: 50 mg Trazodone HCl (Trazodone Hcl 50 Mg Tablet) 50 mg PO BEDTIME MRX1 PRN PRN Reason: Insomnia Allergies Allergies Allergy/AdvReac Type Severity Reaction Status Date / Time No Known Allergies Allergy Verified 12/22/20 11:21 Assessment & Plan Assessment & Plan (1) Mood disorder: Status: Acute Code(s): F39 - Unspecified mood [affective] disorder Plan Mood Disorder. Pt reports hx of manic sx. Plan: Re-start Wellbutrin, hold Strattera Seroquel 50 mg HS and prn Lamictal 25 mg HS Collateral contact 02/08 Probably yina Decrease Wellbutrin to 75 mg a.m. Increase Seroquel to 100 mg HS (Pt did not sleep last evening) Continue Lamictal [place] 600 mg HS Reason for continued inpatient stay Substantial Risk for: rapid decompensation Time Spent With Patient Time: Total time managing care of this patient today ____ minutes.
[2024-02-09 20:00] VITALS: BP 160/93; PULSE 101; RESP 14; TEMP 37.1; O2SAT 97
[2024-02-10] MEDS: buPROPion HCL 75 MG TABLET PO (08:58)
[2024-02-10 09:08] VITALS: BP 170/95; PULSE 115; RESP 22; TEMP 37.1; O2SAT 98
[2024-02-10] MEDS: hydrOXYzine HCL 25 MG TABLET PO (09:25)
[2024-02-10] MEDS: QUEtiapine Fumarate 25 MG TABLET PO (09:25)
[2024-02-10 09:38] VITALS: BP 142/94; PULSE 97; RESP 22; TEMP 36.4; O2SAT 100
[2024-02-10 09:59] LABS: MANUAL DIFF FLAG NO
[2024-02-10 10:10] LABS: Basophils Percent Auto 0.3 % (0-2); Hematocrit 43.5 % (42.0-52.0); Hemoglobin 14.8 g/dl (14.0-18.0); Imm Gran Abs Auto 0.03 X10*3/uL (0.00-0.03); Imm Gran Pct Auto 0.4 % (0.0-0.4); Lymphocytes Absolute Auto 1.1 X10*3/uL (1.2-4.9); Lymphocytes Percent Auto 13.5 % (20-40); Mean Corpuscular Hemoglobin 28.7 pg (27.0-33.0); Mean Corpuscular Volume 84.5 fL (80.0-98.0); Mean Platelet Volume 9.8 fL (9.4-12.4); Monocytes Absolute Auto 0.7 X10*3/uL (0.1-1.2); Monocytes Percent Auto 9.1 % (2-11); Neutrophils Absolute Auto 6.1 x10*3/uL (2.0-8.3); Neutrophils Percent Auto 76.7 % (45-73); Platelet Count 277 X10*3/uL (160-400); Red Blood Count 5.15 X10*6/uL (4.60-5.80); Red Cell Distribution Width 12.4 % (11.0-16.0); White Blood Count 7.9 X10*3/uL (4.8-10.8)
--- NOTE | 2024-02-10 10:18 | HO.PSYCHPN ---
Subjective Subjective Date of Service: 02/10/24 Reason For Visit: Adjustment disorders, w/ mixed anxiety Interim History: Met with patient; discussed with team Last night patient acting odd, put his foot in the toilet bowl; today patient squatting down to the ground, grunting, then sitting in a chair, grunting and making weird rhythmic motions with his body, breath, eyes closed. Patient would not talk but would nod yes and no. Dispute Resolution Analyst listened to heart which was sinus tachycardia but regular rhythm. Gave patient an Ativan which seemed to snap him out of it and he was talking again. Patient was aware that he was sitting in a chair, not talking but said was just stretching; he then said he he was very stressed and felt like he was passing out and that he needed water and that he had a really teach himself how to swallow. With the foot in the toilet bowl he said he was stretching and did not really respond to reality testing. Patient did not take medications last night but says he will take them going forward and that he is feeling much better than earlier today. Patient says on the reason he thinks that he ended up in the hospital was because he was very stressed and took cannabis gummy Mental Status Exam Mental Status Exam Narrative: Pt is alert and oriented; behavior is bizarre, grunting, eyes closed though it resolved with Ativan and patient returned to cooperative and friendly; patient is not in distress; dressed in hospital attire with unkempt hair/messina but adequate hygiene; mood is described as stress and affect congruent; eye contact appropriate; Speech was mute but has returned to normal rate, volume and prosody and not pressured; intermittent psychomotor agitation present; thought process is goal directed; Thought content is on events leading up to admission and during; tx; no overt delusional content expressed; denies any SI/HI. Internally preoccupied Patients insight and judgment impaired Diagnostics Vital Signs (24Hr): Vital Signs - 24 hr 02/09/24 20:00 02/10/24 09:08 02/10/24 09:38 Temperature 98.7 F 98.7 F 97.6 F Pulse Rate 101 H 115 H 97 Respiratory Rate 14 22 H 22 H Blood Pressure 160/93 H 170/95 H 142/94 H Pulse Oximetry 97 98 100 Oxygen Delivery Method Room Air Room Air Room Air BMI result Body Mass Index 28.9 Labs 02/10/24 09:57 02/10/24 09:57 Labs: Laboratory Results - last 48 hr 02/10/24 09:57 WBC 7.9 RBC 5.15 Hgb 14.8 Hct 43.5 MCV 84.5 MCH 28.7 MCHC 34.0 RDW 12.4 Plt Count 277 MPV 9.8 Immature Gran % (Auto) 0.4 Neut % (Auto) 76.7 H Lymph % (Auto) 13.5 L [place] % (Auto) 9.1 Eos % (Auto) 0.0 Baso % (Auto) 0.3 Lymph # (Auto) 1.1 L [place] # (Auto) 0.7 Eos # (Auto) 0.0 Baso # (Auto) 0.0 Abs Immat Gran (auto) 0.03 Absolute Neuts (auto) 6.1 Absolute Nucleated RBC 0.000 Nucleated RBC % (auto) 0.0 Medications Medications Current Medications Acetaminophen (Acetaminophen 325 Mg Tablet) 650 mg PO Q6H PRN PRN Reason: Headache/Pain Mild Scale (1-3) Al Hydroxide/Mg Hydroxide (Magnesium Hydrox/Alum Hydrox 30 Ml Oral.Susp) 30 ml PO Q6H PRN PRN Reason: Heartburn/Nausea Bupropion HCl (Bupropion Hcl 75 Mg Tablet) 75 mg PO DAILY [facility] Last Admin: 02/10/24 08:58 Dose: 75 mg Hydroxyzine HCl (Hydroxyzine Hcl 25 Mg Tablet) 25 mg PO Q6H PRN PRN Reason: Anxiety Last Admin: 02/10/24 09:25 Dose: 25 mg Lamotrigine (Lamotrigine 25 Mg Tablet) 25 mg PO BEDTIME [facility] Last Admin: 02/09/24 23:40 Dose: Not Given [place] Carbonate ([place] Carbonate 300 Mg Capsule) 600 mg PO BEDTIME [facility] Last Admin: 02/09/24 23:40 Dose: Not Given Magnesium Hydroxide (Milk Of Magnesia 30 Ml Oral.Susp) 30 ml PO DAILY PRN PRN Reason: Constipation Nicotine Polacrilex (Nicotine Polacrilex 2 Mg Gum) 4 mg BUCCAL Q2H PRN PRN Reason: Nicotine Cravings Quetiapine Fumarate (Quetiapine Fumarate 25 Mg Tablet) 25 mg PO BID PRN PRN Reason: anxiety, agitation Last Admin: 02/10/24 09:25 Dose: 25 mg Quetiapine Fumarate (Quetiapine Fumarate 100 Mg Tablet) 100 mg PO BEDTIME [facility] Last Admin: 02/09/24 23:41 Dose: Not Given Trazodone HCl (Trazodone Hcl 50 Mg Tablet) 50 mg PO BEDTIME MRX1 PRN PRN Reason: Insomnia Allergies Allergies Allergy/AdvReac Type Severity Reaction Status Date / Time No Known Allergies Allergy Verified 12/22/20 11:21 Assessment & Plan Assessment & Plan (1) Mood disorder: Status: Acute Code(s): F39 - Unspecified mood [affective] disorder Plan Mood Disorder. Pt reports hx of manic sx. Hospital course: 02/08 Probably yina 02/09 Last night patient acting odd, put his foot in the toilet bowl; today patient squatting down to the ground, grunting, then sitting in a chair, grunting and making weird rhythmic motions with his body, breath, eyes closed. Patient would not talk but would nod yes and no. Dispute Resolution Analyst listen to heart which was sinus tachycardia but regular rhythm. Gave patient an Ativan which seemed to snap him out of it and he was talking again. Patient was aware that he was sitting in a chair, not talking but said was just stretching; he then said he he was very stressed and felt like he was passing out and that he needed water and that he had a really teach himself how to swallow. With the foot in the toilet bowl he said he was stretching and did not really respond to reality testing. Patient did not take medications last night but says he will take them going forward and that he is feeling much better than earlier today. Patient says on the reason he thinks that he ended up in the hospital was because he was very stressed and took cannabis gummy Plan: Re-start Wellbutrin, hold Strattera Seroquel 50 mg HS and prn Lamictal 25 mg H Decrease Wellbutrin to 75 mg a.m. Increase Seroquel to 100 mg HS (Pt did not sleep last evening) Continue Lamictal [place] 600 mg HS Collateral contact Patient educated on: diagnosis, medication risk/benefits, therapeutic strategies and medical condition Informed Consent: understands, does not understand and further education needed Reason for continued inpatient stay Substantial Risk for: inability to function Time Spent With Patient Time: Total time managing care of this patient today ____ minutes.
[2024-02-10] MEDS: LORazepam 1 MG TABLET PO ×2 (10:51→12:35)
[2024-02-10 10:53] LABS: Alanine Aminotransferase 35 U/L (0-40); Alkaline Phosphatase 77 U/L (39-117); Anion Gap 13 (12-20); Aspartate Amino Transferase 44 U/L (5-37); Bilirubin Total 0.9 mg/dL (0.0-1.0); Blood Urea Nitrogen 10 mg/dL (9-16); Calcium 9.9 mg/dL (8.4-10.2); Carbon Dioxide 26 mmol/L (22-29); Chloride 103 mmol/L (96-108); Creatinine Clr Calc Pharmacy 131.1; Estimated Glomerular Filt Rate > 60; Glucose Random 114 mg/dL (60-115); Potassium 4.1 mmol/L (3.3-5.1); Sodium 138 mmol/L (135-145); Total Protein 8.1 g/dL (6.5-8.0)
[2024-02-10 20:00] VITALS: BP 163/104; PULSE 110; RESP 16; TEMP 36.4; O2SAT 98
[2024-02-11] MEDS: hydrOXYzine HCL 25 MG TABLET PO (04:28)
--- NOTE | 2024-02-11 04:34 | PC.NURSE ---
Patient medicated with Hydroxyzine 25 mg for complaint of restlessness at 0435. Will continue to monitor.
[2024-02-11 08:03] VITALS: BP 164/88; PULSE 104; RESP 18; TEMP 36.9; O2SAT 100
--- NOTE | 2024-02-11 08:18 | HO.PSYCHPN ---
Subjective Subjective Date of Service: 02/11/24 Reason For Visit: Adjustment disorders, w/ mixed anxiety Interim History: Met with patient; discussed with team Patient again disorganized, internally preoccupied and acting in a bizarre way. Last night spent hours in the bathroom and difficult for staff to coax him out, in their stacking cups; said he would take medications but refused them. Today, sitting on a chair in only a towel, laughing hysterically to himself and clearly internally preoccupied. In discussion with publicity writer patient would break out laughing and start to explain why but then say never mind. He can not really explain why he did not take medications. Elevated blood pressure; will monitor Mental Status Exam Mental Status Exam Narrative: Pt is alert and oriented; behavior is disorganized, laughing inappropriately to himself, sitting in only a towel in his room; patient is not in distress; dressed in hospital attire with unkempt hair/messina but adequate hygiene; mood is described as good however patient affect labile, expansive; eye contact appropriate; Speech disorganized, starting and stopping sentences, thought blocking apparent; otherwise normal rate, volume, prosody; intermittent psychomotor agitation present; thought process is distracted and struggles to be goal directed; Thought content is disorganized and with undisclosed thoughts; seems to talk about being dehydrated often; no expression of SI/HI. Denies AVH however Internally preoccupied Patients insight and judgment impaired Diagnostics Vital Signs (24Hr): Vital Signs - 24 hr 02/10/24 09:08 02/10/24 09:38 02/10/24 20:00 Temperature 98.7 F 97.6 F 97.6 F Pulse Rate 115 H 97 110 H Respiratory Rate 22 H 22 H 16 Blood Pressure 170/95 H 142/94 H 163/104 H Pulse Oximetry 98 100 98 Oxygen Delivery Method Room Air Room Air Room Air 02/11/24 08:03 Temperature 98.4 F Pulse Rate 104 H Respiratory Rate 18 Blood Pressure 164/88 H Pulse Oximetry 100 Oxygen Delivery Method Room Air BMI result Body Mass Index 28.9 Labs 02/10/24 09:57 02/10/24 09:57 Labs: Laboratory Results - last 48 hr 02/10/24 09:57 WBC 7.9 RBC 5.15 Hgb 14.8 Hct 43.5 MCV 84.5 MCH 28.7 MCHC 34.0 RDW 12.4 Plt Count 277 MPV 9.8 Immature Gran % (Auto) 0.4 Neut % (Auto) 76.7 H Lymph % (Auto) 13.5 [place] % (Auto) 9.1 Eos % (Auto) 0.0 Baso % (Auto) 0.3 Lymph # (Auto) 1.1 L [place] # (Auto) 0.7 Eos # (Auto) 0.0 Baso # (Auto) 0.0 Abs Immat Gran (auto) 0.03 Absolute Neuts (auto) 6.1 Absolute Nucleated RBC 0.000 Nucleated RBC % (auto) 0.0 Sodium 138 Potassium 4.1 Chloride 103 Carbon Dioxide 26 Anion Gap 13 BUN 10 Creatinine 0.79 Estim Creat Clear Calc 131.1 Estimated GFR > 60 Random Glucose 114 Calcium 9.9 Total Bilirubin 0.9 AST 44 H ALT 35 Alkaline Phosphatase 77 Total Protein 8.1 H Albumin 5.0 Medications Medications Current Medications Acetaminophen (Acetaminophen 325 Mg Tablet) 650 mg PO Q6H PRN PRN Reason: Headache/Pain Mild Scale (1-3) Al Hydroxide/Mg Hydroxide (Magnesium Hydrox/Alum Hydrox 30 Ml Oral.Susp) 30 ml PO Q6H PRN PRN Reason: Heartburn/Nausea Bupropion HCl (Bupropion Hcl 75 Mg Tablet) 75 mg PO DAILY [facility] Last Admin: 02/10/24 08:58 Dose: 75 mg Hydroxyzine HCl (Hydroxyzine Hcl 25 Mg Tablet) 25 mg PO Q6H PRN PRN Reason: Anxiety Last Admin: 02/11/24 04:28 Dose: 25 mg Lamotrigine (Lamotrigine 25 Mg Tablet) 25 mg PO BEDTIME [facility]BER Last Admin: 02/10/24 21:40 Dose: Not Given [place] Carbonate ([place] Carbonate 300 Mg Capsule) 600 mg PO BEDTIME EBER Last Admin: 02/10/24 21:40 Dose: Not Given Magnesium Hydroxide (Milk Of Magnesia 30 Ml Oral.Susp) 30 ml PO DAILY PRN PRN Reason: Constipation Nicotine Polacrilex (Nicotine Polacrilex 2 Mg Gum) 4 mg BUCCAL Q2H PRN PRN Reason: Nicotine Cravings Quetiapine Fumarate (Quetiapine Fumarate 25 Mg Tablet) 25 mg PO BID PRN PRN Reason: anxiety, agitation Last Admin: 02/10/24 09:25 Dose: 25 mg Quetiapine Fumarate (Quetiapine Fumarate 100 Mg Tablet) 100 mg PO BEDTIME EBER Last Admin: 02/10/24 21:40 Dose: Not Given Trazodone HCl (Trazodone Hcl 50 Mg Tablet) 50 mg PO BEDTIME MRX1 PRN PRN Reason: Insomnia Allergies Allergies Allergy/AdvReac Type Severity Reaction Status Date / Time No Known Allergies Allergy Verified 12/22/20 11:21 Assessment & Plan Assessment & Plan (1) Mood disorder: Status: Acute Code(s): F39 - Unspecified mood [affective] disorder Plan Mood Disorder. Pt reports hx of manic sx. Hospital course: 02/08 Probably yina 02/09 Last night patient acting odd, put his foot in the toilet bowl; today patient squatting down to the ground, grunting, then sitting in a chair, grunting and making weird rhythmic motions with his body, breath, eyes closed. Patient would not talk but would nod yes and no. Ammonia Still Operator listen to heart which was sinus tachycardia but regular rhythm. Gave patient an Ativan which seemed to snap him out of it and he was talking again. Patient was aware that he was sitting in a chair, not talking but said was just stretching; he then said he he was very stressed and felt like he was passing out and that he needed water and that he had a really teach himself how to swallow. With the foot in the toilet bowl he said he was stretching and did not really respond to reality testing. Patient did not take medications last night but says he will take them going forward and that he is feeling much better than earlier today. -Patient says on the reason he thinks that he ended up in the hospital was because he was very stressed and took cannabis gummy 02/10 Patient again disorganized, internally preoccupied and acting in a bizarre way. Last night spent hours in the bathroom and difficult for staff to coax him out, in their stacking cups; said he would take medications but refused them. Today, sitting on a chair in only a towel, laughing hysterically to himself and clearly internally preoccupied. In discussion with publicity writer patient would break out laughing and start to explain why but then say never mind. He can not really explain why he did not take medications.Elevated blood pressure; will monitor -Impression: Patient presents as psychotic, disorganized speech and behavior and though denies AH, clearly internally preoccupied. Has been refusing labs. Will hold Wellbutrin; maybe some yina, hard to tell but will continue primary providers lithium plan at bedtime though he continues to refuse it. However will start Risperdal to address psychotic symptoms; will also add Ativan 0.5 t.i.d. since it seemed to help yesterday. Patient often says he was dehydrated however nursing monitoring and patient is not drinking excessively at this time; low risk for hyponatremia or other metabolic disturbance however will also get labs out abundance of caution Plan: Labs ordered to assess any potential contribution to disorganized behavior START Risperdal 1mg BID; likey titrate Hold Wellbutrin: So as not to exacerbate any yina or psychotic symptoms Continue [place] 600 mg HS Continue Seroquel to 100 mg HS; may increase if not sleeping, though refusing Lamictal 25 mg H hold Strattera Collateral contact Patient educated on: diagnosis and medication risk/benefits Informed Consent: does not understand Reason for continued inpatient stay Substantial Risk for: inability to function Time Spent With Patient Time: Total time managing care of this patient today ____ minutes.
[2024-02-11] MEDS: buPROPion HCL 75 MG TABLET PO (09:36)
[2024-02-11] MEDS: QUEtiapine Fumarate 25 MG TABLET PO (09:38)
[2024-02-11] MEDS: LORazepam 0.5 MG TABLET PO ×3 (12:00→20:46)
[2024-02-11] MEDS: risperiDONE 1 MG TABLET PO ×2 (12:00→14:43)
[2024-02-11 20:00] VITALS: BP 176/104; PULSE 115; RESP 18; TEMP 36.9; O2SAT 99
[2024-02-11] MEDS: Lithium Carbonate 300 MG CAPSULE 600 MG PO (20:45)
[2024-02-11] MEDS: lamoTRIgine 25 MG TABLET PO (20:46)
[2024-02-11] MEDS: QUEtiapine Fumarate 100 MG TABLET PO (20:46)
[2024-02-12 08:05] VITALS: BP 141/91; PULSE 104; RESP 18; TEMP 36.1; O2SAT 98
[2024-02-12] MEDS: risperiDONE 1 MG TABLET PO ×2 (08:59→14:03)
[2024-02-12] MEDS: buPROPion HCL 75 MG TABLET PO (08:59)
[2024-02-12] MEDS: LORazepam 0.5 MG TABLET PO ×3 (08:59→20:34)
--- NOTE | 2024-02-12 09:55 | HO.PSYCHPN ---
Subjective Subjective Date of Service: 02/12/24 Reason For Visit: Adjustment disorders, w/ mixed anxiety Subjective Notes: Conditional Voluntary Healthcare Proxy: No Guardianship: No Medical Problems Affecting Mental Status: No Interim History: Team report a difficult weekend with symptoms of psychosis, refusal of medications and behavioral dyscontrol. Today, pt reports he is beginning to feel some improvement. I need to take the medication-it does not work if I am not taking it. Pt denies SI, HI, AH, VH. He is mildly euphoric at times but with some symptoms of dysphoric yina. He discussed stressors prior to admission. One stress he had not discussed is that family will move to [place] in April, with 's family. Pt reports he feels he has been working on a deadline to get things in order before the move. When asked how he feels about this he replies mixed but this is best for the family at this time. Pt reports sleep is improving, and appetite is intact. Medication Compliance: Yes Side effects from medications: No Attending Groups: Intermittent Review of Systems Acute medical concerns: No Medical Review of Systems: unchanged Review of Systems Review of Systems Yes all other systems are reviewed and are negative (Denies at this time) Mental Status Exam Mental Status Exam Patient Appearance: Fatigued and Appropriate Patient Orientation: Person, Place, Time and Situation Level of Consciousness: Alert Patient Behavior: Appropriate, Talkative, Cooperative, Anxious and Crying (mild) Mood Description: Labile and Apprehensive Affect Description: Labile and Apprehensive Patient Cognition Impaired: No Ability to Follow Directions: Good Speech Pattern: Spontaneous Speech Memory Description: Episodic Impaired Hallucinations: None Delusions: Not Present Thought Process: Rumination Thought Content: positive for Circumstantial Depressive Symptoms: Increased Anxiety Judgement: Fair Diagnostics Vital Signs (24Hr): Vital Signs - 24 hr 02/11/24 20:00 02/12/24 08:05 Temperature 98.5 F 97 F Pulse Rate 115 H 104 H Respiratory Rate 18 18 Blood Pressure 176/104 H 141/91 H Pulse Oximetry 99 98 Oxygen Delivery Method Room Air Room Air BMI result Body Mass Index 28.9 Labs 02/10/24 09:57 02/10/24 09:57 Labs: Laboratory Results - last 48 hr 02/10/24 09:57 WBC 7.9 RBC 5.15 Hgb 14.8 Hct 43.5 MCV 84.5 MCH 28.7 MCHC 34.0 RDW 12.4 Plt Count 277 MPV 9.8 Immature Gran % (Auto) 0.4 Neut % (Auto) 76.7 H Lymph % (Auto) 13.5 L [place] % (Auto) 9.1 Eos % (Auto) 0.0 Baso % (Auto) 0.3 Lymph # (Auto) 1.1 L [place] # (Auto) 0.7 Eos # (Auto) 0.0 Baso # (Auto) 0.0 Abs Immat Gran (auto) 0.03 Absolute Neuts (auto) 6.1 Absolute Nucleated RBC 0.000 Nucleated RBC % (auto) 0.0 Sodium 138 Potassium 4.1 Chloride 103 Carbon Dioxide 26 Anion Gap 13 BUN 10 Creatinine 0.79 Estim Creat Clear Calc 131.1 Estimated GFR > 60 Random Glucose 114 Calcium 9.9 Total Bilirubin 0.9 AST 44 H ALT 35 Alkaline Phosphatase 77 Total Protein 8.1 H Albumin 5.0 Medications Medications Current Medications Acetaminophen (Acetaminophen 325 Mg Tablet) 650 mg PO Q6H PRN PRN Reason: Headache/Pain Mild Scale (1-3) Al Hydroxide/Mg Hydroxide (Magnesium Hydrox/Alum Hydrox 30 Ml Oral.Susp) 30 ml PO Q6H PRN PRN Reason: Heartburn/Nausea Bupropion HCl (Bupropion Hcl 75 Mg Tablet) 75 mg PO DAILY [facility] Last Admin: 02/12/24 08:59 Dose: 75 mg Hydroxyzine HCl (Hydroxyzine Hcl 25 Mg Tablet) 25 mg PO Q6H PRN PRN Reason: Anxiety Last Admin: 02/11/24 04:28 Dose: 25 mg Lamotrigine (Lamotrigine 25 Mg Tablet) 25 mg PO BEDTIME [facility] Last Admin: 02/11/24 20:46 Dose: 25 mg [place] Carbonate ([place] Carbonate 300 Mg Capsule) 600 mg PO BEDTIME [facility] Last Admin: 02/11/24 20:45 Dose: 600 mg Lorazepam (Lorazepam 0.5 Mg Tablet) 0.5 mg PO TID [facility] Last Admin: 02/12/24 08:59 Dose: 0.5 mg Magnesium Hydroxide (Milk Of Magnesia 30 Ml Oral.Susp) 30 ml PO DAILY PRN PRN Reason: Constipation Nicotine Polacrilex (Nicotine Polacrilex 2 Mg Gum) 4 mg BUCCAL Q2H PRN PRN Reason: Nicotine Cravings Quetiapine Fumarate (Quetiapine Fumarate 25 Mg Tablet) 25 mg PO BID PRN PRN Reason: anxiety, agitation Last Admin: 02/11/24 09:38 Dose: 25 mg Quetiapine Fumarate (Quetiapine Fumarate 100 Mg Tablet) 100 mg PO BEDTIME [facility] Last Admin: 02/11/24 20:46 Dose: 100 mg Risperidone (Risperidone 1 Mg Tablet) 1 mg PO BID@0900,1400 [facility] Last Admin: 02/12/24 08:59 Dose: 1 mg Trazodone HCl (Trazodone Hcl 50 Mg Tablet) 50 mg PO BEDTIME MRX1 PRN PRN Reason: Insomnia Allergies Allergies Allergy/AdvReac Type Severity Reaction Status Date / Time No Known Allergies Allergy Verified 12/22/20 11:21 Assessment & Plan Assessment & Plan (1) Mood disorder: Status: Acute Code(s): F39 - Unspecified mood [affective] disorder Plan Mood Disorder. Pt reports hx of manic sx. Hospital course: 02/08 Probably yina 02/09 Last night patient acting odd, put his foot in the toilet bowl; today patient squatting down to the ground, grunting, then sitting in a chair, grunting and making weird rhythmic motions with his body, breath, eyes closed. Patient would not talk but would nod yes and no. Carbon Brusher Assembler listen to heart which was sinus tachycardia but regular rhythm. Gave patient an Ativan which seemed to snap him out of it and he was talking again. Patient was aware that he was sitting in a chair, not talking but said was just stretching; he then said he he was very stressed and felt like he was passing out and that he needed water and that he had a really teach himself how to swallow. With the foot in the toilet bowl he said he was stretching and did not really respond to reality testing. Patient did not take medications last night but says he will take them going forward and that he is feeling much better than earlier today. -Patient says on the reason he thinks that he ended up in the hospital was because he was very stressed and took cannabis gummy 02/10 Patient again disorganized, internally preoccupied and acting in a bizarre way. Last night spent hours in the bathroom and difficult for staff to coax him out, in their stacking cups; said he would take medications but refused them. Today, sitting on a chair in only a towel, laughing hysterically to himself and clearly internally preoccupied. In discussion with insurance underwriter sales patient would break out laughing and start to explain why but then say never mind. He can not really explain why he did not take medications.Elevated blood pressure; will monitor 02/11: Accepting medications, verbalized the importance of compliance with the medications, talking about a deadline to move the family to [place] in April 2024 and the stress of this deadline. -Impression: Patient presents as psychotic, disorganized speech and behavior and though denies AH, clearly internally preoccupied. Has been refusing labs. Will hold Wellbutrin; maybe some yina, hard to tell but will continue primary providers lithium plan at bedtime though he continues to refuse it. However will start Risperdal to address psychotic symptoms; will also add Ativan 0.5 t.i.d. since it seemed to help yesterday. Patient often says he was dehydrated however nursing monitoring and patient is not drinking excessively at this time; low risk for hyponatremia or other metabolic disturbance however will also get labs out abundance of caution Plan: Labs ordered to assess any potential contribution to disorganized behavior START Risperdal 1mg BID; likey titrate Hold Wellbutrin: So as not to exacerbate any yina or psychotic symptoms Continue [place] 600 mg HS Continue Seroquel to 100 mg HS; may increase if not sleeping, though refusing Lamictal 25 mg H hold Strattera Collateral contact Reason for continued inpatient stay Substantial Risk for: rapid decompensation Time Spent With Patient Time: Total time managing care of this patient today ____ minutes.
--- NOTE | 2024-02-12 15:30 | MHC.CLN ---
RE: CONSULT HT 65 WT 173#, 78.8KG BMI 28.9 PT IS OBESE FOR HT WITH HX GASTRIC BYPASS 2020 REVIEWED HUOM-ALU-JIN ALBUMIN 5.0 WNL PT IS RECEIVING A REGULAR DIET-APPROPRIATE CONSULT SENT FOR QUESTIONS R/T GASTRIC BYPASS PT WITH DISORGANIZED SPEECH, REFUSING MEDS AND BIZARRE BEHAVIOR PT NOT APPROPRIATE FOR DIET TEACHING AT THIS TIME-NO SPECIFIC TEACHING WARRANTED GASTRIC BYPASS OCCURRED MANY YEARS AGO PT'S WT IS STABLE CONTINUE REGULAR DIET MONITOR PO INTAKE PT IS LOW NUTRITION RISK AT THIS TIME CONTINUE CARE PLAN
[2024-02-12 19:37] VITALS: BP 162/91; PULSE 114; RESP 16; TEMP 37; O2SAT 100
[2024-02-12] MEDS: lamoTRIgine 25 MG TABLET PO (20:34)
[2024-02-12] MEDS: QUEtiapine Fumarate 100 MG TABLET PO (20:34)
[2024-02-12] MEDS: traZODone HCL 50 MG TABLET PO (20:34)
[2024-02-12] MEDS: Lithium Carbonate 300 MG CAPSULE 600 MG PO (20:34)
--- NOTE | 2024-02-13 | ECG_ITS ---
Test Reason : R/O QTc prolongation, 2 atypical agents in regime Blood Pressure : / mmHG Vent. Rate : 115 BPM Atrial Rate : 115 BPM P-R Int : 100 ms QRS Dur : 074 ms QT Int : 318 ms P-R-T Axes : 014 073 035 degrees QTc Int : 439 ms Sinus tachycardia with short PA Otherwise normal ECG When compared with ECG of 15-SEP-2020 07:08, Heart rate has increased Referred By: Krupa Srinivasan Electronically Signed By:VINCE CARRILLO
[2024-02-13 08:00] VITALS: BP 130/67; PULSE 99; RESP 16; TEMP 36.1; O2SAT 99
[2024-02-13] MEDS: buPROPion HCL 75 MG TABLET PO (08:17)
[2024-02-13] MEDS: risperiDONE 1 MG TABLET PO ×2 (08:17→13:44)
[2024-02-13] MEDS: LORazepam 0.5 MG TABLET PO ×3 (08:17→20:22)
--- NOTE | 2024-02-13 11:29 | HO.PSYCHPN ---
Subjective Subjective Date of Service: 02/13/24 Reason For Visit: Adjustment disorders, w/ mixed anxiety Subjective Notes: Conditional Voluntary Healthcare Proxy: No Guardianship: No Medical Problems Affecting Mental Status: No Interim History: Pt reports feeling well today. What caused this to happen? Discussed sleep, stress, biochemical components. Denies SI/HI/AH/VH. He presents calmer and with less euphoria. He reports a discussion with his father in law who has encouraged him to attempt to relax and not work as hard as he has been. Pt reports family has decided to postpone the move to [place] until the school year has completed, allowing him ~6-9 extra months to consider this decision. Discussed self care, the importance of sleep/rest and taking time to make himself a priority so he can be available for his family. Finds groups helpful he reports. Discussed couples meeting for 02/13, however pt reports today is in the ER for IVABX so this may need to be rescheduled. Medication Compliance: Yes Side effects from medications: No Attending Groups: Intermittent Review of Systems Acute medical concerns: No Medical Review of Systems: unchanged Review of Systems Review of Systems Yes all other systems are reviewed and are negative (denies) Mental Status Exam Mental Status Exam Patient Appearance: Appropriate Patient Orientation: Person, Place, Time and Situation Level of Consciousness: Alert Patient Behavior: Appropriate, Talkative and Cooperative Mood Description: Appropriate and Cheerful Affect Description: Appropriate and Cheerful Patient Cognition Impaired: No Ability to Follow Directions: Good Speech Pattern: Spontaneous Speech Memory Description: Episodic Impaired Hallucinations: None Delusions: Not Present Thought Process: Goal Oriented Thought Content: positive for Circumstantial and positive for Goal Oriented Judgement: Good Diagnostics Vital Signs (24Hr): Vital Signs - 24 hr 02/12/24 19:37 02/13/24 08:00 Temperature 98.6 F 97 F Pulse Rate 114 H 99 Respiratory Rate 16 16 Blood Pressure 162/91 H 130/67 Pulse Oximetry 100 99 Oxygen Delivery Method Room Air Room Air BMI result Body Mass Index 28.9 Labs 02/10/24 09:57 02/10/24 09:57 Medications Medications Current Medications Acetaminophen (Acetaminophen 325 Mg Tablet) 650 mg PO Q6H PRN PRN Reason: Headache/Pain Mild Scale (1-3) Al Hydroxide/Mg Hydroxide (Magnesium Hydrox/Alum Hydrox 30 Ml Oral.Susp) 30 ml PO Q6H PRN PRN Reason: Heartburn/Nausea Bupropion HCl (Bupropion Hcl 75 Mg Tablet) 75 mg PO DAILY [facility] Last Admin: 02/13/24 08:17 Dose: 75 mg Hydroxyzine HCl (Hydroxyzine Hcl 25 Mg Tablet) 25 mg PO Q6H PRN PRN Reason: Anxiety Last Admin: 02/11/24 04:28 Dose: 25 mg Lamotrigine (Lamotrigine 25 Mg Tablet) 25 mg PO BEDTIME [facility]BER Last Admin: 02/12/24 20:34 Dose: 25 mg [place] Carbonate ([place] Carbonate 300 Mg Capsule) 600 mg PO BEDTIME EBER Last Admin: 02/12/24 20:34 Dose: 600 mg Lorazepam (Lorazepam 0.5 Mg Tablet) 0.5 mg PO TID [facility] Last Admin: 02/13/24 08:17 Dose: 0.5 mg Magnesium Hydroxide (Milk Of Magnesia 30 Ml Oral.Susp) 30 ml PO DAILY PRN PRN Reason: Constipation Nicotine Polacrilex (Nicotine Polacrilex 2 Mg Gum) 4 mg BUCCAL Q2H PRN PRN Reason: Nicotine Cravings Quetiapine Fumarate (Quetiapine Fumarate 25 Mg Tablet) 25 mg PO BID PRN PRN Reason: anxiety, agitation Last Admin: 02/11/24 09:38 Dose: 25 mg Quetiapine Fumarate (Quetiapine Fumarate 100 Mg Tablet) 100 mg PO BEDTIME [facility] Last Admin: 02/12/24 20:34 Dose: 100 mg Risperidone (Risperidone 1 Mg Tablet) 1 mg PO BID@0900,1400 [facility] Last Admin: 02/13/24 08:17 Dose: 1 mg Trazodone HCl (Trazodone Hcl 50 Mg Tablet) 50 mg PO BEDTIME MRX1 PRN PRN Reason: Insomnia Last Admin: 02/12/24 20:34 Dose: 50 mg Allergies Allergies Allergy/AdvReac Type Severity Reaction Status Date / Time No Known Allergies Allergy Verified 12/22/20 11:21 Assessment & Plan Assessment & Plan (1) Mood disorder: Status: Acute Code(s): F39 - Unspecified mood [affective] disorder Plan Mood Disorder. Pt reports hx of manic sx. Hospital course: 02/08 Probably yina 02/09 Last night patient acting odd, put his foot in the toilet bowl; today patient squatting down to the ground, grunting, then sitting in a chair, grunting and making weird rhythmic motions with his body, breath, eyes closed. Patient would not talk but would nod yes and no. Finishing Range Supervisor listen to heart which was sinus tachycardia but regular rhythm. Gave patient an Ativan which seemed to snap him out of it and he was talking again. Patient was aware that he was sitting in a chair, not talking but said was just stretching; he then said he he was very stressed and felt like he was passing out and that he needed water and that he had a really teach himself how to swallow. With the foot in the toilet bowl he said he was stretching and did not really respond to reality testing. Patient did not take medications last night but says he will take them going forward and that he is feeling much better than earlier today. -Patient says on the reason he thinks that he ended up in the hospital was because he was very stressed and took cannabis gummy 02/10 Patient again disorganized, internally preoccupied and acting in a bizarre way. Last night spent hours in the bathroom and difficult for staff to coax him out, in their stacking cups; said he would take medications but refused them. Today, sitting on a chair in only a towel, laughing hysterically to himself and clearly internally preoccupied. In discussion with automobile and property underwriter patient would break out laughing and start to explain why but then say never mind. He can not really explain why he did not take medications.Elevated blood pressure; will monitor 02/12: EKG-R/O QTc prolongation, dual atypical agents [place] level 02/13. Continue regime -Impression: Patient presents as psychotic, disorganized speech and behavior and though denies AH, clearly internally preoccupied. Has been refusing labs. Will hold Wellbutrin; maybe some yina, hard to tell but will continue primary providers lithium plan at bedtime though he continues to refuse it. However will start Risperdal to address psychotic symptoms; will also add Ativan 0.5 t.i.d. since it seemed to help yesterday. Patient often says he was dehydrated however nursing monitoring and patient is not drinking excessively at this time; low risk for hyponatremia or other metabolic disturbance however will also get labs out abundance of caution Plan: Labs ordered to assess any potential contribution to disorganized behavior START Risperdal 1mg BID; likey titrate Hold Wellbutrin: So as not to exacerbate any yina or psychotic symptoms Continue [place] 600 mg HS Continue Seroquel to 100 mg HS; may increase if not sleeping, though refusing Lamictal 25 mg H hold Strattera Collateral contact Patient educated on: medication risk/benefits and therapeutic strategies Informed Consent: understands Reason for continued inpatient stay Substantial Risk for: rapid decompensation Time Spent With Patient Time: Total time managing care of this patient today ____ minutes.
[2024-02-13 20:00] VITALS: BP 111/58; PULSE 99; RESP 16; TEMP 36.6; O2SAT 98
[2024-02-13] MEDS: lamoTRIgine 25 MG TABLET PO (20:22)
[2024-02-13] MEDS: Lithium Carbonate 300 MG CAPSULE 600 MG PO (20:22)
[2024-02-13] MEDS: QUEtiapine Fumarate 100 MG TABLET PO (20:22)
[2024-02-14] MEDS: hydrOXYzine HCL 25 MG TABLET PO (02:02)
[2024-02-14 08:41] VITALS: BP 130/73; PULSE 93; RESP 18; TEMP 36.4; O2SAT 94
[2024-02-14 08:50] LABS: Lithium 0.27 mmol/L (0.60-1.20)
[2024-02-14] MEDS: LORazepam 0.5 MG TABLET PO ×3 (08:53→20:58)
[2024-02-14] MEDS: buPROPion HCL 75 MG TABLET PO (08:53)
[2024-02-14] MEDS: risperiDONE 1 MG TABLET PO ×2 (08:53→14:22)
--- NOTE | 2024-02-14 08:54 | P.PNPSI_ITS ---
Subjective Subjective Date of Service: 02/14/24 Reason For Visit: Adjustment disorders, w/ mixed anxiety Subjective Notes: Conditional Voluntary Healthcare Proxy: No Guardianship: No Medical Problems Affecting Mental Status: No Interim History: Met with pt, , team. sees improvement. Pt still not sleeping regularly. 6 hours interrupted. Discussed increase in Seroquel. Medication Compliance: Yes Side effects from medications: No Attending Groups: Yes Review of Systems Acute medical concerns: No Review of Systems Review of Systems Yes all other systems are reviewed and are negative Mental Status Exam Mental Status Exam Patient Appearance: Appropriate Patient Orientation: Person, Place, Time and Situation Level of Consciousness: Alert Patient Behavior: Appropriate, Talkative and Cooperative Mood Description: Appropriate and Cheerful Affect Description: Appropriate and Cheerful Patient Cognition Impaired: No Ability to Follow Directions: Good Speech Pattern: Spontaneous Speech Memory Description: Episodic Impaired Hallucinations: None Delusions: Not Present Thought Process: Goal Oriented Thought Content: positive for Circumstantial and positive for Goal Oriented Judgement: Good Diagnostics Vital Signs (24Hr): Vital Signs - 24 hr 02/13/24 20:00 02/14/24 08:41 Temperature 97.8 F 97.5 F Pulse Rate 99 93 Respiratory Rate 16 18 Blood Pressure 111/58 L 130/73 Pulse Oximetry 98 94 Oxygen Delivery Method Room Air Room Air BMI result Body Mass Index 28.9 Labs 02/10/24 09:57 02/10/24 09:57 Labs: Laboratory Results - last 48 hr 02/14/24 08:33 Clare 0.27 L Medications Medications Current Medications Acetaminophen (Acetaminophen 325 Mg Tablet) 650 mg PO Q6H PRN PRN Reason: Headache/Pain Mild Scale (1-3) Al Hydroxide/Mg Hydroxide (Magnesium Hydrox/Alum Hydrox 30 Ml Oral.Susp) 30 ml PO Q6H PRN PRN Reason: Heartburn/Nausea Bupropion HCl (Bupropion Hcl 75 Mg Tablet) 75 mg PO DAILY EBER Last Admin: 02/13/24 08:17 Dose: 75 mg Hydroxyzine HCl (Hydroxyzine Hcl 25 Mg Tablet) 25 mg PO Q6H PRN PRN Reason: Anxiety Last Admin: 02/14/24 02:02 Dose: 25 mg Lamotrigine (Lamotrigine 25 Mg Tablet) 25 mg PO BEDTIME EBER Last Admin: 02/13/24 20:22 Dose: 25 mg Clare Carbonate (Clare Carbonate 300 Mg Capsule) 600 mg PO BEDTIME [facility] Last Admin: 02/13/24 20:22 Dose: 600 mg Lorazepam (Lorazepam 0.5 Mg Tablet) 0.5 mg PO TID [facility] Last Admin: 02/13/24 20:22 Dose: 0.5 mg Magnesium Hydroxide (Milk Of Magnesia 30 Ml Oral.Susp) 30 ml PO DAILY PRN PRN Reason: Constipation Nicotine Polacrilex (Nicotine Polacrilex 2 Mg Gum) 4 mg BUCCAL Q2H PRN PRN Reason: Nicotine Cravings Quetiapine Fumarate (Quetiapine Fumarate 25 Mg Tablet) 25 mg PO BID PRN PRN Reason: anxiety, agitation Last Admin: 02/11/24 09:38 Dose: 25 mg Quetiapine Fumarate (Quetiapine Fumarate 100 Mg Tablet) 100 mg PO BEDTIME [facility] Last Admin: 02/13/24 20:22 Dose: 100 mg Risperidone (Risperidone 1 Mg Tablet) 1 mg PO BID@0900,1400 [facility] Last Admin: 02/13/24 13:44 Dose: 1 mg Trazodone HCl (Trazodone Hcl 50 Mg Tablet) 50 mg PO BEDTIME MRX1 PRN PRN Reason: Insomnia Last Admin: 02/12/24 20:34 Dose: 50 mg Allergies Allergies Allergy/AdvReac Type Severity Reaction Status Date / Time No Known Allergies Allergy Verified 12/22/20 11:21 Assessment & Plan Assessment & Plan (1) Mood disorder: Status: Acute Code(s): F39 - Unspecified mood [affective] disorder Plan Mood Disorder. Pt reports hx of manic sx. Hospital course: 02/08 Probably yina 02/09 Last night patient acting odd, put his foot in the toilet bowl; today patient squatting down to the ground, grunting, then sitting in a chair, grunting and making weird rhythmic motions with his body, breath, eyes closed. Patient would not talk but would nod yes and no. Pneumatic Hoist Operator listen to heart which was sinus tachycardia but regular rhythm. Gave patient an Ativan which seemed to snap him out of it and he was talking again. Patient was aware that he was sitting in a chair, not talking but said was just stretching; he then said he he was very stressed and felt like he was passing out and that he needed water and that he had a really teach himself how to swallow. With the foot in the toilet bowl he said he was stretching and did not really respond to reality testing. Patient did not take medications last night but says he will take them going forward and that he is feeling much better than earlier today. -Patient says on the reason he thinks that he ended up in the hospital was because he was very stressed and took cannabis gummy 02/10 Patient again disorganized, internally preoccupied and acting in a bizarre way. Last night spent hours in the bathroom and difficult for staff to coax him out, in their stacking cups; said he would take medications but refused them. Today, sitting on a chair in only a towel, laughing hysterically to himself and clearly internally preoccupied. In discussion with publications writer patient would break out laughing and start to explain why but then say never mind. He can not really explain why he did not take medications.Elevated blood pressure; will monitor 02/12: EKG-R/O QTc prolongation, dual atypical agents [place] level 02/13. Continue regime 02/13: Increase Seroquel to 200 mg HS -Impression: Patient presents as psychotic, disorganized speech and behavior and though denies AH, clearly internally preoccupied. Has been refusing labs. Will hold Wellbutrin; maybe some yina, hard to tell but will continue primary providers lithium plan at bedtime though he continues to refuse it. However will start Risperdal to address psychotic symptoms; will also add Ativan 0.5 t.i.d. since it seemed to help yesterday. Patient often says he was dehydrated however nursing monitoring and patient is not drinking excessively at this time; low risk for hyponatremia or other metabolic disturbance however will also get labs out abundance of caution Plan: Labs ordered to assess any potential contribution to disorganized behavior START Risperdal 1mg BID; likey titrate Hold Wellbutrin: So as not to exacerbate any yina or psychotic symptoms Continue Clare 600 mg HS Continue Seroquel to 100 mg HS; may increase if not sleeping, though refusing Lamictal 25 mg H hold Strattera Collateral contact Informed Consent: understands Reason for continued inpatient stay Substantial Risk for: rapid decompensation Time Spent With Patient Time: Total time managing care of this patient today ____ minutes.
[2024-02-14 20:00] VITALS: BP 164/90; PULSE 106; TEMP 37.1; O2SAT 98
[2024-02-14] MEDS: Lithium Carbonate 300 MG CAPSULE 600 MG PO (20:57)
[2024-02-14] MEDS: lamoTRIgine 25 MG TABLET PO (20:57)
[2024-02-14] MEDS: QUEtiapine Fumarate 200 MG TABLET PO (20:58)
[2024-02-15] MEDS: LORazepam 0.5 MG TABLET PO ×3 (08:50→21:56)
[2024-02-15] MEDS: risperiDONE 1 MG TABLET PO ×2 (08:50→14:16)
[2024-02-15] MEDS: buPROPion HCL 75 MG TABLET PO (08:50)
--- NOTE | 2024-02-15 12:11 | HO.PSYCHPN ---
Subjective Subjective Date of Service: 02/15/24 Reason For Visit: Adjustment disorders, w/ mixed anxiety Subjective Notes: Conditional Voluntary Healthcare Proxy: No Guardianship: No Medical Problems Affecting Mental Status: No Interim History: I feel balanced, but I still cannot sleep . Full med review. Showering a few times during the night, doing skin care, yoga, unable to rest. Denies feeling overmedicated. Attending groups, participating in milieu. [place] level is low. Agrees to divide and increase dosing. Medication Compliance: Yes Side effects from medications: No Attending Groups: Yes Review of Systems Acute medical concerns: No Medical Review of Systems: unchanged Review of Systems Review of Systems Yes all other systems are reviewed and are negative Mental Status Exam Mental Status Exam Patient Appearance: Appropriate Patient Orientation: Person, Place, Time and Situation Level of Consciousness: Alert Patient Behavior: Appropriate, Talkative and Cooperative Mood Description: Appropriate and Cheerful Affect Description: Appropriate and Cheerful Patient Cognition Impaired: No Ability to Follow Directions: Good Speech Pattern: Spontaneous Speech Memory Description: Episodic Impaired Hallucinations: None Delusions: Not Present Thought Process: Goal Oriented Thought Content: positive for Circumstantial and positive for Goal Oriented Judgement: Good Diagnostics Vital Signs (24Hr): Vital Signs - 24 hr 02/14/24 20:00 Temperature 98.8 F Pulse Rate 106 H Blood Pressure 164/90 H Pulse Oximetry 98 Oxygen Delivery Method Room Air BMI result Body Mass Index 28.9 Labs 02/10/24 09:57 02/10/24 09:57 Labs: Laboratory Results - last 48 hr 02/14/24 08:33 Hold Purple Top SEE NOTE [place] 0.27 L Medications Medications Current Medications Acetaminophen (Acetaminophen 325 Mg Tablet) 650 mg PO Q6H PRN PRN Reason: Headache/Pain Mild Scale (1-3) Al Hydroxide/Mg Hydroxide (Magnesium Hydrox/Alum Hydrox 30 Ml Oral.Susp) 30 ml PO Q6H PRN PRN Reason: Heartburn/Nausea Bupropion HCl (Bupropion Hcl 75 Mg Tablet) 75 mg PO DAILY EBER Last Admin: 02/15/24 08:50 Dose: 75 mg Hydroxyzine HCl (Hydroxyzine Hcl 25 Mg Tablet) 25 mg PO Q6H PRN PRN Reason: Anxiety Last Admin: 02/14/24 02:02 Dose: 25 mg Lamotrigine (Lamotrigine 25 Mg Tablet) 25 mg PO BEDTIME EBER Last Admin: 02/14/24 20:57 Dose: 25 mg [place] Carbonate ([place] Carbonate 300 Mg Capsule) 600 mg PO BEDTIME EBER Last Admin: 02/14/24 20:57 Dose: 600 mg Lorazepam (Lorazepam 0.5 Mg Tablet) 0.5 mg PO TID REPLACED BY [facility] Last Admin: 02/15/24 08:50 Dose: 0.5 mg Magnesium Hydroxide (Milk Of Magnesia 30 Ml Oral.Susp) 30 ml PO DAILY PRN PRN Reason: Constipation Nicotine Polacrilex (Nicotine Polacrilex 2 Mg Gum) 4 mg BUCCAL Q2H PRN PRN Reason: Nicotine Cravings Quetiapine Fumarate (Quetiapine Fumarate 25 Mg Tablet) 25 mg PO BID PRN PRN Reason: anxiety, agitation Last Admin: 02/11/24 09:38 Dose: 25 mg Quetiapine Fumarate (Quetiapine Fumarate 200 Mg Tablet) 200 mg PO BEDTIME EBER Last Admin: 02/14/24 20:58 Dose: 200 mg Risperidone (Risperidone 1 Mg Tablet) 1 mg PO BID@0900,1400 [facility]PL[facility] Last Admin: 02/15/24 08:50 Dose: 1 mg Trazodone HCl (Trazodone Hcl 50 Mg Tablet) 50 mg PO BEDTIME MRX1 PRN PRN Reason: Insomnia Last Admin: 02/12/24 20:34 Dose: 50 mg Allergies Allergies Allergy/AdvReac Type Severity Reaction Status Date / Time No Known Allergies Allergy Verified 12/22/20 11:21 Assessment & Plan Assessment & Plan (1) Mood disorder: Status: Acute Code(s): F39 - Unspecified mood [affective] disorder Plan Mood Disorder. Pt reports hx of manic sx. Hospital course: 02/08 Probably yina 02/09 Last night patient acting odd, put his foot in the toilet bowl; today patient squatting down to the ground, grunting, then sitting in a chair, grunting and making weird rhythmic motions with his body, breath, eyes closed. Patient would not talk but would nod yes and no. Recycling Specialist listen to heart which was sinus tachycardia but regular rhythm. Gave patient an Ativan which seemed to snap him out of it and he was talking again. Patient was aware that he was sitting in a chair, not talking but said was just stretching; he then said he he was very stressed and felt like he was passing out and that he needed water and that he had a really teach himself how to swallow. With the foot in the toilet bowl he said he was stretching and did not really respond to reality testing. Patient did not take medications last night but says he will take them going forward and that he is feeling much better than earlier today. -Patient says on the reason he thinks that he ended up in the hospital was because he was very stressed and took cannabis gummy 02/10 Patient again disorganized, internally preoccupied and acting in a bizarre way. Last night spent hours in the bathroom and difficult for staff to coax him out, in their stacking cups; said he would take medications but refused them. Today, sitting on a chair in only a towel, laughing hysterically to himself and clearly internally preoccupied. In discussion with administrative underwriter patient would break out laughing and start to explain why but then say never mind. He can not really explain why he did not take medications.Elevated blood pressure; will monitor 02/12: EKG-R/O QTc prolongation, dual atypical agents [place] level 02/13. Continue regime 02/14: Increase [place] to 450 mg ER bid -Impression: Patient presents as psychotic, disorganized speech and behavior and though denies AH, clearly internally preoccupied. Has been refusing labs. Will hold Wellbutrin; maybe some yina, hard to tell but will continue primary providers lithium plan at bedtime though he continues to refuse it. However will start Risperdal to address psychotic symptoms; will also add Ativan 0.5 t.i.d. since it seemed to help yesterday. Patient often says he was dehydrated however nursing monitoring and patient is not drinking excessively at this time; low risk for hyponatremia or other metabolic disturbance however will also get labs out abundance of caution Plan: Labs ordered to assess any potential contribution to disorganized behavior START Risperdal 1mg BID; likey titrate Hold Wellbutrin: So as not to exacerbate any yina or psychotic symptoms Continue [place] 600 mg HS Continue Seroquel to 100 mg HS; may increase if not sleeping, though refusing Lamictal 25 mg H hold Strattera Collateral contact Patient educated on: medication risk/benefits and therapeutic strategies Informed Consent: understands Reason for continued inpatient stay Substantial Risk for: rapid decompensation Time Spent With Patient Time: Total time managing care of this patient today ____ minutes.
[2024-02-15 20:00] VITALS: BP 155/99; PULSE 104; TEMP 37.1; O2SAT 98
[2024-02-15] MEDS: Lithium Carbonate ER 450 MG TABLET.ER PO (21:56)
[2024-02-15] MEDS: lamoTRIgine 25 MG TABLET PO (21:56)
[2024-02-15] MEDS: QUEtiapine Fumarate 200 MG TABLET PO (21:56)
[2024-02-15] MEDS: Magnesium Hydrox/Alum Hydrox 30 ML ORAL.SUSP PO (22:36)
--- NOTE | 2024-02-16 05:05 | PC.NURSE ---
Per [facility] @2039 on 02/15/24 Pt presented a tissue to staff which pt said contained a pill pt found on bathroom sink. Pt told staff pt thought it was from roommate. Staff gave tissue to RN. RN found a white, round, partially disintegrated tablet in the tissue. No identifiable markings present. Pt is only person in room who takes medications which have similar description. Pt denies knowing which medication it was.
[2024-02-16 07:58] VITALS: BP 162/85; PULSE 98; RESP 18; TEMP 36.6; O2SAT 100
[2024-02-16] MEDS: buPROPion HCL 75 MG TABLET PO (09:04)
[2024-02-16] MEDS: LORazepam 0.5 MG TABLET PO ×2 (09:04→20:20)
[2024-02-16] MEDS: risperiDONE 1 MG TABLET PO ×2 (09:04→15:00)
[2024-02-16] MEDS: Lithium Carbonate ER 450 MG TABLET.ER PO (09:04)
--- NOTE | 2024-02-16 09:30 | P.PNPSI_ITS ---
Subjective Subjective Date of Service: 02/16/24 Reason For Visit: Adjustment disorders, w/ mixed anxiety Interim History: With patient; discussed with team Patient reports that he is feeling better. Patient discussed that he is getting more in touch with what is real and what is not and aware of his recent psychotic episode. He is having much trouble sleeping. Agreed to switch lithium to bedtime and make it extended release. Mental Status Exam Mental Status Exam Patient Appearance: Appropriate Patient Orientation: Person, Place, Time and Situation Level of Consciousness: Alert Patient Behavior: Appropriate, Talkative and Cooperative Mood Description: Appropriate and Cheerful Affect Description: Appropriate and Cheerful Patient Cognition Impaired: No Ability to Follow Directions: Good Speech Pattern: Spontaneous Speech Memory Description: Episodic Impaired Hallucinations: None Delusions: Not Present Thought Process: Goal Oriented Thought Content: positive for Circumstantial and positive for Goal Oriented Judgement: Good Diagnostics Vital Signs (24Hr): Vital Signs - 24 hr 02/15/24 20:00 02/16/24 07:58 Temperature 98.7 F 97.8 F Pulse Rate 104 H 98 Respiratory Rate 18 Blood Pressure 155/99 H 162/85 H Pulse Oximetry 98 100 Oxygen Delivery Method Room Air Room Air BMI result Body Mass Index 28.9 Labs 02/17/24 12:17 02/17/24 12:17 Medications Medications Current Medications Acetaminophen (Acetaminophen 325 Mg Tablet) 650 mg PO Q6H PRN PRN Reason: Headache/Pain Mild Scale (1-3) Al Hydroxide/Mg Hydroxide (Magnesium Hydrox/Alum Hydrox 30 Ml Oral.Susp) 30 ml PO Q6H PRN PRN Reason: Heartburn/Nausea Last Admin: 02/15/24 22:36 Dose: 30 ml Bupropion HCl (Bupropion Hcl 75 Mg Tablet) 75 mg PO DAILY [facility] Last Admin: 02/16/24 09:04 Dose: 75 mg Hydroxyzine HCl (Hydroxyzine Hcl 25 Mg Tablet) 25 mg PO Q6H PRN PRN Reason: Anxiety Last Admin: 02/14/24 02:02 Dose: 25 mg Lamotrigine (Lamotrigine 25 Mg Tablet) 25 mg PO BEDTIME [facility] Last Admin: 02/15/24 21:56 Dose: 25 mg [place] Carbonate ([place] Carbonate Er 450 Mg Tablet.Er) 450 mg PO BID [facility] Last Admin: 02/16/24 09:04 Dose: 450 mg Lorazepam (Lorazepam 0.5 Mg Tablet) 0.5 mg PO TID [facility] Last Admin: 02/16/24 09:04 Dose: 0.5 mg Magnesium Hydroxide (Milk Of Magnesia 30 Ml Oral.Susp) 30 ml PO DAILY PRN PRN Reason: Constipation Nicotine Polacrilex (Nicotine Polacrilex 2 Mg Gum) 4 mg BUCCAL Q2H PRN PRN Reason: Nicotine Cravings Quetiapine Fumarate (Quetiapine Fumarate 25 Mg Tablet) 25 mg PO BID PRN PRN Reason: anxiety, agitation Last Admin: 02/11/24 09:38 Dose: 25 mg Quetiapine Fumarate (Quetiapine Fumarate 200 Mg Tablet) 200 mg PO BEDTIME [facility] Last Admin: 02/15/24 21:56 Dose: 200 mg Risperidone (Risperidone 1 Mg Tablet) 1 mg PO BID@0900,1400 [facility] Last Admin: 02/16/24 09:04 Dose: 1 mg Trazodone HCl (Trazodone Hcl 50 Mg Tablet) 50 mg PO BEDTIME MRX1 PRN PRN Reason: Insomnia Last Admin: 02/12/24 20:34 Dose: 50 mg Allergies Allergies Allergy/AdvReac Type Severity Reaction Status Date / Time No Known Allergies Allergy Verified 12/22/20 11:21 Assessment & Plan Assessment & Plan (1) Mood disorder: Status: Acute Code(s): F39 - Unspecified mood [affective] disorder Plan Mood Disorder. Pt reports hx of manic sx. Hospital course: 02/08 Probably yina 02/09 Last night patient acting odd, put his foot in the toilet bowl; today patient squatting down to the ground, grunting, then sitting in a chair, grunting and making weird rhythmic motions with his body, breath, eyes closed. Patient would not talk but would nod yes and no. Salesperson Florist Supplies listen to heart which was sinus tachycardia but regular rhythm. Gave patient an Ativan which seemed to snap him out of it and he was talking again. Patient was aware that he was sitting in a chair, not talking but said was just stretching; he then said he he was very stressed and felt like he was passing out and that he needed water and that he had a really teach himself how to swallow. With the foot in the toilet bowl he said he was stretching and did not really respond to reality testing. Patient did not take medications last night but says he will take them going forward and that he is feeling much better than earlier today. -Patient says on the reason he thinks that he ended up in the hospital was because he was very stressed and took cannabis gummy 02/10 Patient again disorganized, internally preoccupied and acting in a bizarre way. Last night spent hours in the bathroom and difficult for staff to coax him out, in their stacking cups; said he would take medications but refused them. Today, sitting on a chair in only a towel, laughing hysterically to himself and clearly internally preoccupied. In discussion with medical technical writer patient would break out laughing and start to explain why but then say never mind. He can not really explain why he did not take medications.Elevated blood pressure; will monitor 02/12: EKG-R/O QTc prolongation, dual atypical agents [place] level 02/13. Continue regime -Impression: Patient presents as psychotic, disorganized speech and behavior and though denies AH, clearly internally preoccupied. Has been refusing labs. Will hold Wellbutrin; maybe some yina, hard to tell but will continue primary providers lithium plan at bedtime though he continues to refuse it. However will start Risperdal to address psychotic symptoms; will also add Ativan 0.5 t.i.d. since it seemed to help yesterday. Patient often says he was dehydrated however nursing monitoring and patient is not drinking excessively at this time; low risk for hyponatremia or other metabolic disturbance however will also get labs out abundance of caution 02/15 Patient reports that he is feeling better. Patient discussed that he is getting more in touch with what is real and what is not and aware of his recent psychotic episode. He is having much trouble sleeping. Agreed to switch lithium to bedtime and make it extended release. Plan: Labs ordered to assess any potential contribution to disorganized behavior Risperdal 1mg BID; likey titrate Hold Wellbutrin: So as not to exacerbate any yina or psychotic symptoms Change lithium to extended release and make at bedtime for insomnia Continue Seroquel to 100 mg HS; may increase if not sleeping, though refusing Lamictal 25 mg H hold Strattera Collateral contact Patient educated on: diagnosis, medication risk/benefits and therapeutic strategies Informed Consent: understands and further education needed Reason for continued inpatient stay Substantial Risk for: rapid decompensation Time Spent With Patient Time: Total time managing care of this patient today ____ minutes.
[2024-02-16 20:00] VITALS: BP 139/74; PULSE 114; RESP 18; TEMP 36.4; O2SAT 98
[2024-02-16] MEDS: lamoTRIgine 25 MG TABLET PO (20:19)
[2024-02-16] MEDS: QUEtiapine Fumarate 200 MG TABLET PO (20:20)
[2024-02-16] MEDS: Lithium Carbonate ER 300 MG TABLET.ER 600 MG PO (20:23)
[2024-02-17 08:00] VITALS: BP 157/82; PULSE 96; RESP 16; TEMP 36.2; O2SAT 98
[2024-02-17] MEDS: buPROPion HCL 75 MG TABLET PO (08:35)
[2024-02-17] MEDS: LORazepam 0.5 MG TABLET PO (08:35)
[2024-02-17] MEDS: risperiDONE 1 MG TABLET PO ×2 (08:35→14:19)
[2024-02-17 11:45] VITALS: BP 115/61; PULSE 90; RESP 16; O2SAT 100
--- NOTE | 2024-02-17 11:50 | PC.NURSE ---
Zeeshan asked this nurse to look at stool he just passed, I showed it to the doctor, but wanted you to see it too . In his toilet is a moderate amount of medium red liquid stool. He reports this has never happened to him before. He denies any bowel issues or history. About 15 minutes later he called this nurse again and this time it was a moderate amount of medium red liquid in the toilet, no substance noted. He is a bit pale and perspiring. Encouraged to lie down. Vitals taken 97.3-90-16-115/61 and Sat of 100%. Dr Jacome updated. Hospitalist consult placed. He has had a few more loose stools in rapid succession. He is now complaining of lower abdomenal pain.
[2024-02-17 12:26] LABS: Hematocrit 32.8 % (42.0-52.0); Hemoglobin 11.2 g/dl (14.0-18.0); Mean Corpuscular HGB Conc 34.1 g/dl (31.0-36.0); Mean Corpuscular Hemoglobin 29.7 pg (27.0-33.0); Platelet Count 251 X10*3/uL (160-400); Red Blood Count 3.77 X10*6/uL (4.60-5.80); Red Cell Distribution Width 12.4 % (11.0-16.0); White Blood Count 12.6 X10*3/uL (4.8-10.8)
[2024-02-17 12:47] LABS: Alanine Aminotransferase 24 U/L (0-40); Albumin Level 3.6 g/dL (3.5-5.0); Alkaline Phosphatase 49 U/L (39-117); Anion Gap 12 (12-20); Aspartate Amino Transferase 21 U/L (5-37); Bilirubin Direct 0.2 mg/dL (0.0-0.5); Bilirubin Total 0.5 mg/dL (0.0-1.0); Blood Urea Nitrogen 24 mg/dL (9-16); Calcium 8.7 mg/dL (8.4-10.2); Carbon Dioxide 24 mmol/L (22-29); Chloride 101 mmol/L (96-108); Creatinine Clr Calc Pharmacy 141.8; Estimated Glomerular Filt Rate > 60; Glucose Random 137 mg/dL (60-115); Potassium 4.8 mmol/L (3.3-5.1); Sodium 132 mmol/L (135-145); Total Protein 5.7 g/dL (6.5-8.0)
[2024-02-17 13:15] VITALS: BP 134/70; PULSE 98; O2SAT 100
[2024-02-17 13:18] VITALS: BP 132/70; PULSE 110; RESP 16; O2SAT 100
--- NOTE | 2024-02-17 13:18 | P.CNGI_ITS ---
History of Present Illness Data of Consult Service Date: 02/17/24 Requesting physician: Lenard Valdovinos Primary Care Provider: Unknown Physician HPI Reason for consult: LGI bleeding 29-year-old male with ADHD, hx Malcolm-en-Y, anxiety, and depression?admitted to [facility] psychiatry unit on 02/08/24 for dysregulated behavior at home. GI consulted for evaluation of rectal bleeding since this am. Pt denies past hx of rectal bleeding. He reports being constipated yesterday and had a BM with some straining. He had a BM at 11:30 am and noted passage of BRB mixed with his stool in the toilet water. Pt complains of lower abdominal discomfort which resolves after a BM. He has had 5 additional episodes since them and complains of dizziness. Orthostatic Vital signs showed: Supine BP 134/70, pulse 98 Sitting 132/70 110 Standing 104/61 120 Pt denies chest pain/pressure, palpitations, shortness or breath or difficulty breathing. No headache or acute vision changes. Patient denies any current alcohol, tobacco, or illicit substance use.Pt denies having a colonoscopy in the past. Review of Systems 2 Review of Systems: Yes all other systems are reviewed and are negative PMFSH Past Medical History Medical History ADHD Sleep apnea Asthma Morbid obesity due to excess calories Family History Family History Mother No problems noted. Father Sleep apnea Sister No problems noted. Brother Hypertension Son No problems noted. Daughter Eczema Surgical History Surgical History History of Malcolm-en-Y gastric bypass No significant past surgical history Social History Social History Household Members: Spouse and Family Housing: House Do you presently have visiting nurse or other home services: No Alcohol intake: current Alcohol intake frequency: holidays/special occasions only Patient Tobacco Use Status: Former Tobacco user Cigarettes Per Day: 2 Substance Use Type: Marijuana service: No Sexual orientation: Straight/Heterosexual Meds Allergies Allergy/AdvReac Type Severity Reaction Status Date / Time No Known Allergies Allergy Verified 12/22/20 11:21 Active Medications: Current Medications Acetaminophen (Acetaminophen 325 Mg Tablet) 650 mg PO Q6H PRN PRN Reason: Headache/Pain Mild Scale (1-3) Al Hydroxide/Mg Hydroxide (Magnesium Hydrox/Alum Hydrox 30 Ml Oral.Susp) 30 ml PO Q6H PRN PRN Reason: Heartburn/Nausea Last Admin: 02/15/24 22:36 Dose: 30 ml Bupropion HCl (Bupropion Hcl 75 Mg Tablet) 75 mg PO DAILY [facility] Last Admin: 02/17/24 08:35 Dose: 75 mg Hydroxyzine HCl (Hydroxyzine Hcl 25 Mg Tablet) 25 mg PO Q6H PRN PRN Reason: Anxiety Last Admin: 02/14/24 02:02 Dose: 25 mg Lamotrigine (Lamotrigine 25 Mg Tablet) 25 mg PO BEDTIME EBER Last Admin: 02/16/24 20:19 Dose: 25 mg [place] Carbonate ([place] Carbonate Er 450 Mg Tablet.Er) 900 mg PO BEDTIME EBER Lorazepam (Lorazepam 0.5 Mg Tablet) 0.5 mg PO BID EBER Stop: 02/18/24 11:50 Last Admin: 02/17/24 08:35 Dose: 0.5 mg Magnesium Hydroxide (Milk Of Magnesia 30 Ml Oral.Susp) 30 ml PO DAILY PRN PRN Reason: Constipation Nicotine Polacrilex (Nicotine Polacrilex 2 Mg Gum) 4 mg BUCCAL Q2H PRN PRN Reason: Nicotine Cravings Quetiapine Fumarate (Quetiapine Fumarate 25 Mg Tablet) 25 mg PO BID PRN PRN Reason: anxiety, agitation Last Admin: 02/11/24 09:38 Dose: 25 mg Quetiapine Fumarate (Quetiapine Fumarate 200 Mg Tablet) 200 mg PO BEDTIME [facility] Last Admin: 02/16/24 20:20 Dose: 200 mg Risperidone (Risperidone 1 Mg Tablet) 1 mg PO BID@0900,1400 [facility] Last Admin: 02/17/24 08:35 Dose: 1 mg Trazodone HCl (Trazodone Hcl 50 Mg Tablet) 50 mg PO BEDTIME MRX1 PRN PRN Reason: Insomnia Last Admin: 02/12/24 20:34 Dose: 50 mg Home Medications ?Medication ?Instructions ?Recorded ?Confirmed ?Last Taken ?Type atomoxetine 80 mg capsule 80 mg PO QAM 02/07/24 02/07/24 02/07/24 History 80 mg bupropion HCl 150 mg 24 hr tablet, 150 mg PO QAM 02/07/24 02/07/24 02/07/24 09:00 History extended release Physical Exam 2 Vital Signs: Vital Signs: Last Vital Signs Temp 97.2 F 02/17/24 08:00 Pulse 96 02/17/24 08:00 Resp 16 02/17/24 08:00 BP 157/82 H 02/17/24 08:00 Pulse Ox 98 02/17/24 08:00 O2 Del Method Room Air 02/17/24 08:00 BMI result Body Mass Index 28.9 Const: General: no acute distress Nutritional Appearance: overweight O rientation/consciousness: patient oriented x3 Limitations: no limitations HEENT: Head: Yes normal to inspection Ears: hearing grossly normal bilaterally Eyes: Sclerae: sclerae normal Pupils: Equal, round and reactive pupils present Neck: Neck: Yes normal visual inspection Chest: Chest palpation & inspection: normal inspection of the chest Resp: Effort & Inspection: normal respiratory effort Auscultation: clear to auscultation bilaterally Cardio: Palpation: normal PMI Rate: regular rate Rhythm: regular rhythm Heart sounds: S1 normal heart sound present, S2 normal heart sound present and no murmurs GI: Palpation (GI): Soft to palpation, nontender and No hepatosplenomegaly present Auscultation: normal bowel sounds Rectal Exam - Male: Yes deferred Skin: General skin exam: no rashes or lesions noted Neuro: General: patient oriented x3, gait normal and moves all extremities Cranial nerves: Yes Equal, round and reactive pupils present Psych: Appearance: grossly normal Mental Status: mental status grossly normal Results Labs 02/17/24 12:17 02/17/24 12:17 Labs: Short CBC 02/17/24 Range/Units 12:17 WBC 12.6 H (4.8-10.8) X10*3/uL Hgb 11.2 L D (14.0-18.0) g/dl Hct 32.8 L D (42.0-52.0) % Plt Count 251 (160-400) X10*3/uL BMP 02/17/24 12:17 Sodium 132 L Potassium 4.8 Chloride 101 Carbon Dioxide 24 BUN 24 H Creatinine 0.73 Calcium 8.7 D Liver Function 02/17/24 Range/Units 12:17 Total Bilirubin 0.5 (0.0-1.0) mg/dL Direct Bilirubin 0.2 (0.0-0.5) mg/dL AST 21 (5-37) U/L ALT 24 (0-40) U/L Alkaline Phosphatase 49 (39-117) U/L Albumin 3.6 (3.5-5.0) g/dL Assessment and Plan (1) Lower GI bleeding: Status: Acute Procedures Date of Service Date of Service: 02/17/24
[2024-02-17 13:20] VITALS: BP 104/61; PULSE 120; RESP 16; O2SAT 100
--- NOTE | 2024-02-17 13:33 | PC.NURSE ---
1305 . Danny has had several moderate sized, medium red stools. He is dizzy at times. This nurse accompanied him to the bathroom for safety. Dr Barakat on floor. Report given. Per MD request orthostatic VS done and reported. Decision made to transfer to medical floor. supervisor concrete stone fabricating notified.
--- NOTE | 2024-02-17 13:56 | PM.PSYDC ---
DS: Providers Provider Date of Service: 02/17/24 Date of admission: 02/07/24 18:01 Date of discharge: 02/17/24 Primary care physician: Unknown Physician Consults: 02/08/24 05:22 Consult to Hospitalist Routine Comment: Consulting Provider: Hospitalist Reason For Exam: OSH admission 02/17/24 11:46 Consult to Hospitalist Stat Comment: Consulting Provider: Hospitalist Reason For Exam: Acute bright blood [place] 02/17/24 11:52 Consult to Gastroenterology Routine Consulting Provider: Arpit Barakat Reason for consultation: gi bleed Attending physician on discharge: Lenard Valdovinos Discharging clinician: Terry Ba DS: Diagnosis Discharge Diagnosis (1) Lower GI bleeding: Start date: 02/17/24 Start time: 11:00 Status: Acute DS: Medications Discharge Medications Home Medications: Home Medications ?Medication ?Instructions ?Recorded ?Confirmed atomoxetine 80 mg capsule 80 mg PO QAM 02/07/24 02/07/24 bupropion HCl 150 mg 24 hr tablet, 150 mg PO QAM 02/07/24 02/07/24 extended release Mental Status Exam Mental Status Exam Narrative: Patient Appearance: Appropriate Patient Orientation: Person, Place, Time and Situation Level of Consciousness: Alert Patient Behavior: Appropriate, Talkative and Cooperative Mood Description: Appropriate and Cheerful Affect Description: Appropriate and Cheerful Patient Cognition Impaired: No Ability to Follow Directions: Good Speech Pattern: Spontaneous Speech Memory Description: Episodic Impaired Hallucinations: None Delusions: Not Present Thought Process: Goal Oriented. Mildly pressured. Thought Content: positive for Circumstantial and positive for Goal Oriented Judgement: Good Data Data Completed and Pending Completed studies during hospitalization [Text1]: 02/14/24 02/17/24 08:33 12:17 WBC 12.6 H RBC 3.77 L D Hgb 11.2 L D Hct 32.8 L D MCV 87.0 MCH 29.7 MCHC 34.1 RDW 12.4 Plt Count 251 MPV 10.0 Absolute Nucleated RBC 0.000 Nucleated RBC % (auto) 0.0 Hold Purple Top SEE NOTE Sodium 132 L Potassium 4.8 Chloride 101 Carbon Dioxide 24 Anion Gap 12 BUN 24 H Creatinine 0.73 Estim Creat Clear Calc 141.8 Estimated GFR > 60 Random Glucose 137 H Calcium 8.7 D Total Bilirubin 0.5 Direct Bilirubin 0.2 AST 21 ALT 24 Alkaline Phosphatase 49 Total Protein 5.7 L Albumin 3.6 Hold Yellow Top See Note [place] 0.27 L Blood Type B Positive Antibody Screen NEGATIVE DS: Summary Hospital Course Hospital Course: 29 yo male, history of ADHD, anxiety, presents in transfer from [facility] with behavioral outbursts and telling others that God is talking with him. He reports response to internal stimuli. Tells crisis he ran out of medications, that he and recently lost a baby and he had a recent move from [place] to [place] with financial struggles. Met with pt who reports he is doing better. States he works 26 hours per week as a [employer] and 50-60 hours per week with [employer] and has been stressed, not sleeping, not caring for himself. States when he became sleep deprived he started overthinking and everything became a problem States he had been taking Wellbutrin and Strattera along with Ritalin and it helped him to gather his thoughts, organize, relax and stop overthinking. He asked for help in getting back on track to return to his family. Past Psychiatric History: IP: Once in 9th grade and once in 10th grade OP: [facility] Hospital course: 02/08 Probably yina 02/09 Last night patient acting odd, put his foot in the toilet bowl; today patient squatting down to the ground, grunting, then sitting in a chair, grunting and making weird rhythmic motions with his body, breath, eyes closed. Patient would not talk but would nod yes and no. Planer Off Bearer listen to heart which was sinus tachycardia but regular rhythm. Gave patient an Ativan which seemed to snap him out of it and he was talking again. Patient was aware that he was sitting in a chair, not talking but said was just stretching; he then said he he was very stressed and felt like he was passing out and that he needed water and that he had a really teach himself how to swallow. With the foot in the toilet bowl he said he was stretching and did not really respond to reality testing. Patient did not take medications last night but says he will take them going forward and that he is feeling much better than earlier today. -Patient says on the reason he thinks that he ended up in the hospital was because he was very stressed and took cannabis gummy 02/10 Patient again disorganized, internally preoccupied and acting in a bizarre way. Last night spent hours in the bathroom and difficult for staff to coax him out, in their stacking cups; said he would take medications but refused them. Today, sitting on a chair in only a towel, laughing hysterically to himself and clearly internally preoccupied. In discussion with insurance underwriter sales patient would break out laughing and start to explain why but then say never mind. He can not really explain why he did not take medications.Elevated blood pressure; will monitor 02/12: EKG-R/O QTc prolongation, dual atypical agents [place] level 02/13. Continue regime 02/14: Increase [place] to 450 mg ER bid On 02/16: Patient's mood was more organized. He developed acute bright red blood per rectum. He alerted this physician and RN. He proceeded to have several more episodes. Hospitalist consult was requested and patient was transferred to telemetry for observation and management. Time spent discussing smoking cessation with patient: more than 10 minutes Status at Discharge Functional status at discharge: independent ambulation Overall status at discharge: patient is progressing back to baseline Time Spent with Patient Time attestation: Total time managing care of this patient today _35_ minutes. Time spent: Greater than 30 minutes Discharge Plan Discharge Anticipated Discharge Date/Time: 02/17/24 13:34 Patient Disposition: Xfer Other Discharge Diagnosis: Bipolar disorder Referrals: Physician,Unknown J [Primary Care Provider] - 1 Week Discharge Medications: New quetiapine 25 mg Tablet 25 mg PO BID PRN (Reason: anxiety, agitation) Qty: 0 0RF trazodone 50 mg Tablet 50 mg PO BEDTIME MRX1 PRN (Reason: Insomnia) Qty: 0 0RF quetiapine 200 mg Tablet 200 mg PO BEDTIME Qty: 0 0RF lithium carbonate 450 mg Tablet Extended Release 900 mg PO BEDTIME Qty: 0 0RF lamotrigine 25 mg Tablet 25 mg PO BEDTIME Qty: 0 0RF lorazepam 0.5 mg Tablet 0.5 mg PO BID Qty: 0 0RF bupropion HCl 75 mg Tablet 75 mg PO DAILY Qty: 0 0RF hydroxyzine HCl 25 mg Tablet 25 mg PO Q6H PRN (Reason: Anxiety) Qty: 0 0RF risperidone 1 mg Tablet 1 mg PO BID@0900,1400 Qty: 0 0RF Discontinued bupropion HCl 150 mg tablet extended release 24 hr 150 mg PO QAM atomoxetine 80 mg capsule 80 mg PO QAM Discharge Orders: Discharge Order (Routine); Ordered 02/17/24 Ordered By: Lenard Valdovinos Diet: NPO Activity on Discharge: As tolerated Stand Alone Forms: Patient Portal Discharge page, Community Support Print Language: Icelandic Care Plan Goals: transfer to medicine. Health Concerns: transfer to medicine. Plan of Treatment: transfer to medicine. Assessment: transfer to medicine. Discharge Date/Time: 02/17/24 14:25
[2024-02-17 14:10] VITALS: BP 121/61; PULSE 110
--- NOTE | 2024-02-17 14:48 | PC.NURSE ---
Report given to Mor on [facility]. Danny was transferred via stretcher with warehouse shipping clerk.
--- NOTE | 2024-02-17 14:50 | PC.NURSE ---
late entry for 1410 Zeeshan is alert, oriented x4 and aware of necessary transfer to a medical floor. He is less dizzy than earlier and was able to take his 1400 rispiradone with sips of water per Dr Barakat.
--- NOTE | 2024-02-18 10:02 | P.CNPS_ITS ---
History of Present Illness Date of Service: 02/18/2024 Chief Complaint: Adjustment disorders, w/ mixed anxiety Reason for Consult: Transferred from for follow up. HPI Past Psychiatric History: IP: Once in 9th grade and once in 10th grade OP: BHN Trials: Wellbutrin, Strattera [facility], [facility] Medical History ADHD Sleep apnea Asthma Morbid obesity due to excess calories Surgical History History of Malcolm-en-Y gastric bypass No significant past surgical history Family History: Maternal uncle-schizophrenia Social History: Born in [place] Father is a baseball glove shaper, brother and sister work with father. Mother lives with pt's brother Completed high school, security training, retail training, [employer] tech program-worked with [employer] for 6 years, [employer]. Lived in [facility] Daughter 12 with pt and current Son age 4 with ex in [place] Trauma History: I am not sure Diagnostics Vital Signs (24Hr): Vital Signs - 24 hr 02/17/24 11:45 02/17/24 13:15 02/17/24 13:18 Pulse Rate 90 98 110 H Respiratory Rate 16 16 Blood Pressure 115/61 134/70 132/70 Pulse Oximetry 100 100 100 Oxygen Delivery Method Room Air 02/17/24 13:20 02/17/24 14:10 Pulse Rate 120 H 110 H Respiratory Rate 16 Blood Pressure 104/61 121/61 Pulse Oximetry 100 Oxygen Delivery Method BMI result Body Mass Index 28.9 Labs 02/17/24 12:17 02/17/24 12:17 Labs: Laboratory Results - last 48 hr 02/17/24 12:17 WBC 12.6 H RBC 3.77 L D Hgb 11.2 L D Hct 32.8 L D MCV 87.0 MCH 29.7 MCHC 34.1 RDW 12.4 Plt Count 251 MPV 10.0 Absolute Nucleated RBC 0.000 Nucleated RBC % (auto) 0.0 Sodium 132 L Potassium 4.8 Chloride 101 Carbon Dioxide 24 Anion Gap 12 BUN 24 H Creatinine 0.73 Estim Creat Clear Calc 141.8 Estimated GFR > 60 Random Glucose 137 H Calcium 8.7 D Total Bilirubin 0.5 Direct Bilirubin 0.2 AST 21 ALT 24 Alkaline Phosphatase 49 Total Protein 5.7 L Albumin 3.6 Hold Yellow Top See Note Blood Type Cancelled Antibody Screen Cancelled Medications Allergies Allergies Allergy/AdvReac Type Severity Reaction Status Date / Time No Known Allergies Allergy Verified 12/22/20 11:21 Assessment & Plan Total time managing care of this patient today ____ minutes.
== END 2024-02-17 14:25 | disposition short-term general hospital (02) | DRG 753 ==
PROVIDERS: Internal Medicine; Admitting Provider Psychiatry & Neurology Psychiatry; Visit Provider Clinical Nurse Specialist Psychiatric/Mental Health, Adult
DX: F31.9 Bipolar disorder, unspecified (principal); Z91.148 Patient's other noncompliance with medication regimen for other reason; F90.9 Attention-deficit hyperactivity disorder, unspecified type; K62.5 Hemorrhage of anus and rectum; Z87.891 Personal history of nicotine dependence; Z23 Encounter for immunization; Z98.84 Bariatric surgery status; Z79.899 Other long term (current) drug therapy
CPT/HCPCS: 36415; 80048; 80053; 80076; 80178; 85025; 85027; 86850; 86900; 86901; 90656; 93005; J2704; J3010

== ENCOUNTER → 2024-02-07 18:01 | Outpatient (BNV) | payer OTHER, SELFPAY | PROVIDERS: Admitting Provider Psychiatry & Neurology Psychiatry; Visit Provider Clinical Nurse Specialist Psychiatric/Mental Health, Adult | DX: F39 Unspecified mood [affective] disorder (principal); K92.2 Gastrointestinal hemorrhage, unspecified | CPT/HCPCS: 99231; 99232 ==

== ENCOUNTER → 2024-02-07 18:01 | Outpatient (BNV) | payer MEDICAID, SELFPAY | PROVIDERS: Admitting Provider Psychiatry & Neurology Psychiatry; Visit Provider Student in an Organized Health Care Education/Training Program | DX: Z02.2 Encounter for examination for admission to residential institution (principal) | CPT/HCPCS: 99429 ==

== ENCOUNTER → 2024-02-17 13:39 | Outpatient (BNV) | payer OTHER, SELFPAY | PROVIDERS: Admitting Provider Internal Medicine; Visit Provider Internal Medicine | DX: K25.9 Gastric ulcer, unspecified as acute or chronic, without hemorrhage or perforation (principal); D62 Acute posthemorrhagic anemia; Z98.84 Bariatric surgery status; F39 Unspecified mood [affective] disorder | CPT/HCPCS: 99223; 99232; 99233; 99239 ==

== ENCOUNTER 2024-02-17 13:48 | Inpatient (IN) | payer OTHER, SELFPAY ==
[2024-02-17] VITALS (9 sets, daily range): BP systolic 97–140; BP diastolic 49–90; PULSE 90–109; RESP 15–20; TEMP 36–37.2; O2SAT 98–100; BMI 30.4
--- NOTE | ~2024-02-17 | CT_ITS ---
EXAMINATION: CT ABDOMEN AND PELVIS WITHOUT AND WITH CONTRAST CLINICAL INFORMATION: GI bleed. COMPARISON: None available. TECHNIQUE: Multidetector volumetric imaging was performed of the abdomen and pelvis before and after the IV administration of 85 mL of Omnipaque 350 intravenous contrast. Sagittal and coronal reformatted images were obtained on the technologist's workstation. This CT examination was performed using dose optimization techniques as appropriate, variously including the following: *Automated exposure control *Adjustment of mA and/or kV according to patient size (this includes techniques or standardized protocols for targeted exams where dose is matched to indication/reason for exam; i.e. extremities or head) *Use of iterative reconstruction technique DLP: 1371 mGy-cm FINDINGS: LUNG BASES: The lung bases appear clear, with no evidence of inflammation or nodules. LIVER, GALLBLADDER, AND BILIARY TREE: The liver appears unremarkable in size, shape, and attenuation. No focal hepatic lesion or biliary ductal dilatation is appreciated. Unremarkable appearance of the gallbladder. PANCREAS: Unremarkable SPLEEN: Unremarkable ADRENAL GLANDS: Approximately 2 cm right adrenal nodule demonstrating precontrast Hounsfield unit density of 16 and homogeneous enhancement, without gross evidence of macroscopic fat. Postcontrast Hounsfield unit density measures 94. Delayed images at 2 minutes demonstrate Hounsfield unit density of 55. KIDNEYS AND URETERS: The kidneys appear unremarkable in size, shape, and attenuation. No hydronephrosis, hydroureter, or calculi seen. BLADDER: Unremarkable GASTROINTESTINAL TRACT/VASCULAR: Status post gastric bypass. Evidence of abnormal density within the lumen of the proximal small bowel contiguous with anastomotic gastrojejunostomy sutures. This density was not present on precontrast imaging, and appears to have increased on delayed imaging. Unremarkable appearance of the colon. No diverticulosis. Normal-appearing distal ileum and vermiform appendix. ABDOMINAL WALL: No significant hernia is appreciated. LYMPH NODES: No evidence of adenopathy by size criteria. PELVIC VISCERA: Unremarkable OSSEOUS STRUCTURES: Unremarkable CT/CT gi bleed abd pel wo/w IVcon IMPRESSION: Status post gastric bypass surgery. Findings consistent with active GI bleeding into the proximal small bowel at the gastrojejunostomy anastomosis. Approximately 2 cm right adrenal nodule as detailed above, probably representing a benign adenoma, not definitively characterized as such without the benefit of 15 minutes delayed imaging. The finding probably represents a benign adenoma. Follow-up dedicated adrenal washout CT in one year is recommended for further evaluation. Electronically signed by: Pascual Gan MD 02/17/2024 04:53 PM EDT RP
--- NOTE | 2024-02-17 13:52 | PM.IMHP ---
History of Present Illness Date of Service: 02/17/24 Chief Complaint: brbpr 29M PMH adhd, mood disorder, history of morbid obesity s/p gastric bypass was admitted to inpatient psychiatry on 02/07/24 for acute psychosis, on 02/17/24 started having several episodes of BRBPR, associated with dizziness and positive orthostasis. Patient reports abdominal bubbling but no pain. Denies chest pain shortness of breath nausea vomiting. Patient is not on anticoagulation. Has no history of bleed. Hemoglobin decreased over the week from 14.8-11.2. Review of Systems Review of Systems: Yes all other systems are reviewed and are negative [facility] Medical History ADHD Sleep apnea Asthma Morbid obesity due to excess calories Family History Mother No problems noted. Father Sleep apnea Sister No problems noted. Brother Hypertension Son No problems noted. Daughter Eczema Surgical History History of Malcolm-en-Y gastric bypass No significant past surgical history Social History Household Members: Spouse and Family Housing: House Do you presently have visiting nurse or other home services: No Alcohol intake: current Alcohol intake frequency: holidays/special occasions only Patient Tobacco Use Status: Former Tobacco user Cigarettes Per Day: 2 Substance Use Type: Marijuana service: No Sexual orientation: Straight/Heterosexual Meds Allergies Allergy/AdvReac Type Severity Reaction Status Date / Time No Known Allergies Allergy Verified 12/22/20 11:21 Active Medications: Current Medications Acetaminophen (Acetaminophen 325 Mg Tablet) 650 mg PO Q6H PRN PRN Reason: Pain, Mild (Pain Scale 1-3), fever or headache Calcium Carbonate (Calcium Carbonate 750 Mg Tab.Chew) 750 mg PO Q4H PRN PRN Reason: Heartburn Lactated Ringer's (Lr) 1,000 mls @ 100 mls/hr IVCONT .Q10H EBER Magnesium Hydroxide (Milk Of Magnesia 30 Ml Oral.Susp) 30 ml PO DAILY PRN PRN Reason: Constipation Melatonin (Melatonin 3 Mg Tablet) 6 mg PO BEDTIME PRN PRN Reason: Insomnia Sodium Chloride (0.9 % Sodium Chloride Flush 3 Ml Syringe) 3 ml IVFLUSH QSHIFT [facility] Home Medications ?Medication ?Instructions ?Recorded ?Confirmed ?Last Taken ?Type atomoxetine 80 mg capsule 80 mg PO QAM 02/07/24 02/07/24 02/07/24 History 80 mg bupropion HCl 150 mg 24 hr tablet, 150 mg PO QAM 02/07/24 02/07/24 02/07/24 09:00 History extended release Physical Exam Vital Signs and Narrative: General: AO X 3, no acute distress Resp: CTA bilateral, no accessory muscles used CVS: S1,S2,RRR GI: soft, non tender, non distended Neuro: motor grossly intact, alert Psych: appropriate affect, appropriate insight Assessment and Plan (1) Lower GI bleeding: Status: Acute Plan 29M PMH adhd, mood disorder, history of morbid obesity s/p gastric bypass Acute blood loss anemia Likely lower GI bleed Check CT angio abdomen and pelvis Monitor CBC GI eval Acute psychosis Continue Lamictal, bupropion, Risperdal, Seroquel, lithium, Ativan Psychiatry follow-up History of morbid obesity resolved status post gastric bypass Outpatient bariatric follow-up DVT prophylaxis-mechanical due to GI bleed Full code Patient with significant GI bleed and anemia, therefore, expected to require at least 2 midnights inpatient Quality Stroke Does the patient have a stroke diagnosis?: No VTE Prior VTE?: No VTE Risk Level:: Medical - low VTE Device Contraindication: N/A - Device Ordered VTE Drug Contraindication: Treatment Not Tolerated
--- NOTE | 2024-02-17 14:49 | PHA.MEDREC ---
Pharmacy Consult ? Medication Reconciliation Pharmacy has completed the medication reconciliation. Patient transferred from psych floor, meds already continued
[2024-02-17] MEDS: iohexoL 350 MG/ML 100 ML INFUS..BTL IV (16:05)
[2024-02-17] MEDS: Lactated Ringers 1,000 ML 100 ML IVCONT (16:07)
--- NOTE | 2024-02-17 16:22 | PM.GICN ---
History of Present Illness Data of Consult Service Date: 02/17/24 Requesting physician: Lenard Valdovinos Primary Care Provider: Unknown Physician HPI Reason for consult: LGI bleeding 29-year-old male with ADHD, hx Malcolm-en-Y, anxiety, and depression?admitted to [facility] unit on 02/08/24 for dysregulated behavior at home. GI consulted for evaluation of rectal bleeding since this am. Pt denies past hx of rectal bleeding. He reports being constipated yesterday and had a BM with some straining. He had a BM at 11:30 am and noted passage of BRB mixed with his stool in the toilet water. Pt complains of lower abdominal discomfort which resolves after a BM. He has had 5 additional episodes since them and complains of dizziness. Orthostatic Vital signs showed: Supine BP 134/70, pulse 98 Sitting 132/70 110 Standing 104/61 120 Pt denies chest pain/pressure, palpitations, shortness or breath or difficulty breathing. No headache or acute vision changes. Patient denies any current alcohol, tobacco, or illicit substance use.Pt denies having a colonoscopy in the past Review of Systems Review of Systems: Yes all other systems are reviewed and are negative PMFSH Past Medical History Medical History ADHD Sleep apnea Asthma Morbid obesity due to excess calories Family History Family History Mother No problems noted. Father Sleep apnea Sister No problems noted. Brother Hypertension Son No problems noted. Daughter Eczema Surgical History Surgical History History of Malcolm-en-Y gastric bypass No significant past surgical history Social History Social History Household Members: Spouse and Family Housing: House Do you presently have visiting nurse or other home services: No Alcohol intake: current Alcohol intake frequency: holidays/special occasions only Patient Tobacco Use Status: Former Tobacco user Cigarettes Per Day: 2 Use of substances other than those prescribed or required for medical reasons: Yes Substance Use Type: Marijuana Substance Use Frequency: Occasionally Have you been hit, kicked, punched, or otherwise hurt by someone within the past year? If so, by whom?: No Do you feel safe in your current relationship?: Yes Is there a partner from a previous relationship who is making you feel unsafe now?: No Are you made to feel afraid or neglected: No Advance Directives: No Advance Directives Information Provided: Yes Do you have a plan to hurt others: No Plan Recently lost weight without trying: No Eating poorly because of decreased appetite: No Nutrition Risks: No Nutritional Risk service: No Sexual orientation: Straight/Heterosexual Meds Allergies Allergy/AdvReac Type Severity Reaction Status Date / Time No Known Allergies Allergy Verified 12/22/20 11:21 Active Medications: Current Medications Acetaminophen (Acetaminophen 325 Mg Tablet) 650 mg PO Q6H PRN PRN Reason: Pain, Mild (Pain Scale 1-3), fever or headache Bupropion HCl (Bupropion Hcl 75 Mg Tablet) 75 mg PO DAILY EBER Calcium Carbonate (Calcium Carbonate 750 Mg Tab.Chew) 750 mg PO Q4H PRN PRN Reason: Heartburn Lactated Ringer's (Lr) 1,000 mls @ 100 mls/hr IVCONT .Q10H [facility] Last Admin: 02/17/24 16:07 Dose: 100 mls/hr Lamotrigine (Lamotrigine 25 Mg Tablet) 25 mg PO BEDTIME EBER [place] Carbonate ([place] Carbonate Er 450 Mg Tablet.Er) 900 mg PO BEDTIME EBER Lorazepam (Lorazepam 0.5 Mg Tablet) 0.5 mg PO BID EBER Magnesium Hydroxide (Milk Of Magnesia 30 Ml Oral.Susp) 30 ml PO DAILY PRN PRN Reason: Constipation Melatonin (Melatonin 3 Mg Tablet) 6 mg PO BEDTIME PRN PRN Reason: Insomnia Nicotine Polacrilex (Nicotine Polacrilex 2 Mg Gum) 2 mg BUCCAL Q2H PRN PRN Reason: Nicotine Cravings Quetiapine Fumarate (Quetiapine Fumarate 200 Mg Tablet) 200 mg PO BEDTIME EBER Quetiapine Fumarate (Quetiapine Fumarate 25 Mg Tablet) 25 mg PO BID PRN PRN Reason: psychosis Risperidone (Risperidone 1 Mg Tablet) 1 mg PO BID EBER Sodium Chloride (0.9 % Sodium Chloride Flush 3 Ml Syringe) 3 ml IVFLUSH QSHIFT [facility] Last Admin: 02/17/24 16:07 Dose: Not Given Physical Exam Vital Signs: Vital Signs: Last Vital Signs Temp 96.8 F 02/17/24 15:40 Pulse 109 H 02/17/24 15:40 Resp 20 02/17/24 15:40 BP 101/49 L 02/17/24 15:40 Pulse Ox 99 02/17/24 15:40 O2 Del Method Room Air 02/17/24 15:40 Const: General: no acute distress Nutritional Appearance: overweight Orientation/consciousness: patient oriented x3 Limitations: no limitations HEENT: Head: Yes normal to inspection Ears: hearing grossly normal bilaterally Eyes: Sclerae: sclerae normal Pupils: Equal, round and reactive pupils present Neck: Neck: Yes normal visual inspection Chest: Chest palpation & inspection: normal inspection of the chest Resp: Effort & Inspection: normal respiratory effort Auscultation: clear to auscultation bilaterally Cardio: Palpation: normal PMI Rate: regular rate Rhythm: regular rhythm Heart sounds: S1 normal heart sound present, S2 normal heart sound present and no murmurs GI: Palpation (GI): Soft to palpation, nontender and No hepatosplenomegaly present Auscultation: normal bowel sounds Rectal Exam - Male: Yes deferred Skin: General skin exam: no rashes or lesions noted Neuro: General: patient oriented x3, gait normal and moves all extremities Cranial nerves: Yes Equal, round and reactive pupils present Psych: Appearance: grossly normal Mental Status: mental status grossly normal Assessment and Plan (1) Lower GI bleeding: Status: Acute Plan 29-year-old male with ADHD, hx Malcolm-en-Y, anxiety, and depression?admitted to [facility] unit on 02/08/24 for dysregulated behavior at home. GI consulted for evaluation of rectal bleeding since this am. Pt denies past hx of rectal bleeding. He reports being constipated yesterday and had a BM with some straining. He had a BM at 11:30 am and noted passage of BRB mixed with his stool in the toilet water. Pt complains of lower abdominal discomfort which resolves after a BM. He has had 5 additional episodes since them and complains of dizziness. RECOMMENDATIONS: 1. Resuscitate with IV fluids and 1 U PRBCs 2. Monitor CBC q 6 hrly x [address] angio was performed and findings as noted below 4. IV PPI infusion. 5. Proceed with urgent EGD today. Procedure and potential complications including bleeding, perforation, reaction to anesthetic and aspiration were reviewed with the patient and his . ADDENDUM: CT ANGIO SHOWED: Evidence of abnormal density within the lumen of the proximal small bowel contiguous with anastomotic gastrojejunostomy sutures. This density was not present on precontrast imaging, and appears to have increased on delayed imaging. Unremarkable appearance of the colon. No diverticulosis. Normal-appearing distal ileum and vermiform appendix. IMPRESSION: Status post gastric bypass surgery. Findings consistent with active GI bleeding into the proximal small bowel at the gastrojejunostomy anastomosis. Approximately 2 cm right adrenal nodule as detailed above, probably representing a benign adenoma, not definitively characterized as such without the benefit of 15 minutes delayed imaging. The finding probably represents a benign adenoma. Follow-up dedicated adrenal washout CT in one year is recommended for further evaluation. Procedures Date of Service Date of Service: 02/17/24
--- NOTE | 2024-02-17 17:17 | HO.ANESPROP2 ---
HPI - Anesthesia Eval Consult details Narrative: Gastric bleeding PMFSH Active Problems Active Problems: All Active Problems Lower GI bleeding (Acute) Mood disorder (Acute) Medical clearance for psychiatric admission (Acute) Morbid obesity due to excess calories (Acute) BMI 45.0-49.9, adult (Acute) History of smoking (Acute) Mild depression (Acute) Morbid obesity with BMI of 45.0-49.9, adult (Acute) Vitamin D deficiency (Acute) BMI 50.0-59.9, adult (Acute) Shortness of breath (Acute) Preoperative examination (Acute) Past Medical History Medical History ADHD Sleep apnea Asthma Morbid obesity due to excess calories Family History Family History Mother No problems noted. Father Sleep apnea Sister No problems noted. Brother Hypertension Son No problems noted. Daughter Eczema Family history of problems with anesthesia: No Surgical History Surgical History History of Malcolm-en-Y gastric bypass No significant past surgical history History of Problems with Anesthesia: No Social History Social History Household Members: Spouse and Family Housing: House Do you presently have visiting nurse or other home services: No Alcohol intake: current Alcohol intake frequency: holidays/special occasions only Patient Tobacco Use Status: Former Tobacco user Cigarettes Per Day: 2 Use of substances other than those prescribed or required for medical reasons: Yes Substance Use Type: Marijuana Substance Use Frequency: Occasionally Have you been hit, kicked, punched, or otherwise hurt by someone within the past year? If so, by whom?: No Do you feel safe in your current relationship?: Yes Is there a partner from a previous relationship who is making you feel unsafe now?: No Are you made to feel afraid or neglected: No Advance Directives: No Advance Directives Information Provided: Yes Do you have a plan to hurt others: No Plan Recently lost weight without trying: No Eating poorly because of decreased appetite: No Nutrition Risks: No Nutritional Risk service: No Sexual orientation: Straight/Heterosexual Meds Allergies Allergy/AdvReac Type Severity Reaction Status Date / Time No Known Allergies Allergy Verified 12/22/20 11:21 Active Medications: Current Medications Acetaminophen (Acetaminophen 325 Mg Tablet) 650 mg PO Q6H PRN PRN Reason: Pain, Mild (Pain Scale 1-3), fever or headache Bupropion HCl (Bupropion Hcl 75 Mg Tablet) 75 mg PO DAILY EBER Calcium Carbonate (Calcium Carbonate 750 Mg Tab.Chew) 750 mg PO Q4H PRN PRN Reason: Heartburn Lactated Ringer's (Lr) 1,000 mls @ 100 mls/hr IVCONT .Q10H [facility] Last Admin: 02/17/24 16:07 Dose: 100 mls/hr Pantoprazole Sodium 80 mg/ (Sodium Chloride) 100 mls @ 10 mls/hr IV .Q10H EBER Lamotrigine (Lamotrigine 25 Mg Tablet) 25 mg PO BEDTIME EBER [place] Carbonate ([place] Carbonate Er 450 Mg Tablet.Er) 900 mg PO BEDTIME EBER Lorazepam (Lorazepam 0.5 Mg Tablet) 0.5 mg PO BID EBER Magnesium Hydroxide (Milk Of Magnesia 30 Ml Oral.Susp) 30 ml PO DAILY PRN PRN Reason: Constipation Melatonin (Melatonin 3 Mg Tablet) 6 mg PO BEDTIME PRN PRN Reason: Insomnia Nicotine Polacrilex (Nicotine Polacrilex 2 Mg Gum) 2 mg BUCCAL Q2H PRN PRN Reason: Nicotine Cravings Pantoprazole Sodium (Pantoprazole Sodium 40 Mg/10 Ml Vial) 80 mg IVPUSH ONCE ONE Stop: 02/17/24 17:16 Quetiapine Fumarate (Quetiapine Fumarate 200 Mg Tablet) 200 mg PO BEDTIME EBER Quetiapine Fumarate (Quetiapine Fumarate 25 Mg Tablet) 25 mg PO BID PRN PRN Reason: psychosis Risperidone (Risperidone 1 Mg Tablet) 1 mg PO BID [facility] Sodium Chloride (0.9 % Sodium Chloride Flush 3 Ml Syringe) 3 ml IVFLUSH QSHIFT [facility] Last Admin: 02/17/24 16:07 Dose: Not Given Exam Height,Weight and Vital Signs: Height 5 ft 5 in Weight 82.9 kg Last Vital Signs Temp 96.8 F 02/17/24 15:40 Pulse 109 H 02/17/24 15:40 Resp 20 02/17/24 15:40 BP 101/49 L 02/17/24 15:40 Pulse Ox 99 02/17/24 15:40 O2 Del Method Room Air 02/17/24 15:40 Pertinent Lab Results Pertinent Lab Results: Laboratory Tests 02/17/24 12:17 Blood Type B Positive Antibody Screen NEGATIVE Crossmatch See Detail Airway Mallampati Class: III TM Dist: >3cm Neck ROM: Full Loose/Missing/Broken Teeth: No Heart: RRR Lungs: CTA Assessment and Plan Assessment Anesthesia Assessment: Anesthesia Plan Discussed and Chart Reviewed Final Anesthetic Review Family History of Problems with Anesthesia: No History of Problems with Anesthesia: No NPO: Yes ASA Class: III and Emergency Final Preanesthetic Review: No Changes in Pt Med Stat, Meds/Allgs Chart Reviewed, Consent Obtained/Reviewed and Anes Risks/Benef Reviewed Patient Risk: Intermediate Procedure Risk: Low Anesthetic Plan Anesthetic Plan: MAC: Disposition: Standard PACU
[2024-02-17] MEDS: Pantoprazole Sodium 40 MG/10 ML VIAL 80 MG IVPUSH (17:27)
--- NOTE | 2024-02-17 18:15 | W.PM.OPN ---
Operative Note Operative Note Date of Service: 02/17/24 Narrative: FLEXIBLE TRANSORAL UPPER GASTROINTESTINAL ENDOSCOPY WITH BIOPSIES AND CONTROL OF BLEEDING Pre-op diagnosis: Upper GI bleeding, Gastric Bypass status Post-op diagnosis: Anastomotic ulcer, Gastric Bypass status Endoscopist:? Arpit Barakat MD Anesthesia:?MAC UPPER ENDOSCOPY Consent: Indications for the procedure and potential complications of bleeding, perforation, reaction to medications and missed diagnosis were discussed with the patient and informed consent was obtained. Instrument: Olympus GIF H 190 mid size upper endoscope Monitoring: Vital signs and clinical assessment, continuous EKG monitoring, Pulse oximetry, Carbon Dioxide monitoring and blood pressure monitoring were done throughout the procedure. Procedure: The patient was placed in the left lateral decubitis position and pre-procedure medications were administered and a bite block was placed. The endoscope was inserted into the mouth and advanced under direct vision to the third part of duodenum. A careful inspection was made as the upper endoscope was withdrawn including a retroflexed examination of the proximal stomach; Findings and interventions are described below. Findings: Larynx: Normal Esophagus: GE junction at 35 cms. Mildly tortuous esophagus Stomach: Normal gastric mucosa in the gastric pouch - biopsies were obtained to check for Helicobacter pylori. Gastro-jejunal anastomosis at 60 cms. Scattered clots noted in the stomach. Grade 2 flap valve on retroflexed examination of the cardia. Jejunum: A 2 cms ulcer crater just distal to the anastomosis behind a fold with fresh blood and a pigmented protruberance (visible vessel). Ulcer base was treated with cautery using the gold probe A 2nd 1 cms clean based non-bleeding ulcer in the proximal jejunum Impression and Post Procedure Diagnosis: Endoscopy Findings: STOMACH: Gastro-jejunal anastomosis at 60 cms. Scattered clots noted in the stomach. JEJUNUM: Large 2 cms anastomotic ulcer with a visible vessel (likely source for LGI bleeding) - treated with cautery Plan: 1. Continue IV PPI infusion x 72 hours 2. Clear liquid diet tonight and advance to a regular diet in the am. Above findings were reviewed with the patient. BIOPSIES SHOWED: Stomach, biopsy: Oxyntic mucosa with mild chronic inactive inflammation; no Helicobacter organisms seen
[2024-02-17] MEDS: Pantoprazole Sodium 80 MG in 0.9 % Sodium Chloride 80 ML 10 MG IV (18:55)
[2024-02-17] MEDS: LORazepam 0.5 MG TABLET PO (22:08)
[2024-02-17] MEDS: risperiDONE 1 MG TABLET PO (22:08)
[2024-02-17] MEDS: lamoTRIgine 25 MG TABLET PO (22:08)
[2024-02-17] MEDS: QUEtiapine Fumarate 200 MG TABLET PO (22:08)
[2024-02-17] MEDS: Lithium Carbonate ER 450 MG TABLET.ER 900 MG PO (22:08)
[2024-02-18] VITALS (8 sets, daily range): BP systolic 108–147; BP diastolic 57–81; PULSE 87–108; RESP 16–20; TEMP 36.6–37.1; O2SAT 95–100
--- NOTE | 2024-02-18 00:10 | PC.NURSE ---
[id number] Nursing Note. Pt alert oriented x4. Pt transfered from for BRBPR. Pt dening pain. SR/ST on monitor 100. Pt transported for Abdominal CT scan which resulted active GIBleeed in proximal small bowel at gastrojejunostomy anastamosis. Dr. Barakat ordered EGD and one unit PRBC to be given after EGD. Pt recovered in Upper Endo and came back to Med/Tele at 1855. VSS. Pt tolerating Clear liquids/ ice chips and few spoonful of jello. Protonix drip infusing as ordered and patient resting comfortably in bed.
[2024-02-18 00:39] LABS: Hematocrit 29.2 % (42.0-52.0); Hemoglobin 10.1 g/dl (14.0-18.0)
[2024-02-18] MEDS: Pantoprazole Sodium 80 MG in 0.9 % Sodium Chloride 80 ML 10 MG IV ×3 (04:03→21:32)
[2024-02-18] MEDS: Lactated Ringers 1,000 ML 100 ML IVCONT (05:50)
[2024-02-18 07:00] LABS: Hematocrit 30.4 % (42.0-52.0); Hemoglobin 10.1 g/dl (14.0-18.0); Mean Corpuscular HGB Conc 33.2 g/dl (31.0-36.0); Mean Corpuscular Hemoglobin 28.5 pg (27.0-33.0); Mean Corpuscular Volume 85.9 fL (80.0-98.0); Mean Platelet Volume 10.3 fL (9.4-12.4); Platelet Count 208 X10*3/uL (160-400); Red Blood Count 3.54 X10*6/uL (4.60-5.80); Red Cell Distribution Width 12.9 % (11.0-16.0); White Blood Count 7.7 X10*3/uL (4.8-10.8)
[2024-02-18 07:19] LABS: Anion Gap 9 (12-20); Blood Urea Nitrogen 15 mg/dL (9-16); Calcium 8.7 mg/dL (8.4-10.2); Carbon Dioxide 27 mmol/L (22-29); Chloride 105 mmol/L (96-108); Creatinine Clr Calc Pharmacy 158.3; Estimated Glomerular Filt Rate > 60; Glucose Fasting 93 mg/dL (60-99); Sodium 137 mmol/L (135-145)
--- NOTE | 2024-02-18 08:08 | HO.POSTANES ---
Post Anesthesia Evaluation Post Anesthesia Evaluation Date of Service: 02/18/24 Vital Signs: Vital Signs Temp Pulse Resp BP Pulse Ox O2 Del Method 02/18/24 04:00 98.7 F 87 20 130/63 95 Room Air 02/18/24 00:00 98.7 F 102 H 16 130/57 L 97 Room Air 02/17/24 22:56 98.4 F 100 20 123/71 02/17/24 20:13 97.2 F 90 20 140/90 H Anesthesia: Monitored Mental Status: Awake Pain Control: Satisfactory Nausea/Vomiting: None Hydration: Adequate Anesthesia-Related Issues: No Anes. Related Issues
[2024-02-18] MEDS: risperiDONE 1 MG TABLET PO ×2 (08:45→21:32)
[2024-02-18] MEDS: LORazepam 0.5 MG TABLET PO ×2 (08:45→21:32)
[2024-02-18] MEDS: 0.9 % Sodium Chloride Flush 3 ML SYRINGE IVFLUSH ×2 (08:46→21:32)
[2024-02-18] MEDS: buPROPion HCL 75 MG TABLET PO (08:52)
--- NOTE | 2024-02-18 09:58 | P.PNIM_ITS ---
Subjective Subjective Date of Service: 02/18/24 Interval History: small amount of old blood in stool, feels well Physical Exam 2 Vital Signs: Vital Signs: Last Vital Signs Temp 97.8 F 02/18/24 08:00 Pulse 106 H 02/18/24 08:00 Resp 19 02/18/24 08:00 BP 138/81 02/18/24 08:00 Pulse Ox 100 02/18/24 08:00 O2 Del Method Room Air 02/18/24 08:00 BMI result Body Mass Index 30.4 General: AO X 3, no acute distress Resp: CTA bilateral, no accessory muscles used CVS: S1,S2,RRR GI: soft, non tender, non distended Neuro: motor grossly intact, alert Psych: appropriate affect, appropriate insight Objective Data Active Medications Acetaminophen (Acetaminophen 325 Mg Tablet) 650 mg PO Q6H PRN PRN Reason: Pain, Mild (Pain Scale 1-3), fever or headache Bupropion HCl (Bupropion Hcl 75 Mg Tablet) 75 mg PO DAILY [facility] Last Admin: 02/18/24 08:52 Dose: 75 mg Documented By: ESTHER Calcium Carbonate (Calcium Carbonate 750 Mg Tab.Chew) 750 mg PO Q4H PRN PRN Reason: Heartburn Lactated Ringer's (Lr) 1,000 mls @ 100 mls/hr IVCONT .Q10H [facility] Last Admin: 02/18/24 05:50 Dose: 100 mls/hr Documented By: DAVON Pantoprazole Sodium 80 mg/ (Sodium Chloride) 100 mls @ 10 mls/hr IV .Q10H [facility] Last Admin: 02/18/24 04:03 Dose: 8 mg/hr, 10 mls/hr Documented By: DAVON Lamotrigine (Lamotrigine 25 Mg Tablet) 25 mg PO BEDTIME [facility] Last Admin: 02/17/24 22:08 Dose: 25 mg Documented By: HECTOR [place] Carbonate ([place] Carbonate Er 450 Mg Tablet.Er) 900 mg PO BEDTIME [facility] Last Admin: 02/17/24 22:08 Dose: 900 mg Documented By: HECTOR Lorazepam (Lorazepam 0.5 Mg Tablet) 0.5 mg PO BID [facility] Last Admin: 02/18/24 08:45 Dose: 0.5 mg Documented By: ESTHER Magnesium Hydroxide (Milk Of Magnesia 30 Ml Oral.Susp) 30 ml PO DAILY PRN PRN Reason: Constipation Melatonin (Melatonin 3 Mg Tablet) 6 mg PO BEDTIME PRN PRN Reason: Insomnia Naloxone HCl (Naloxone Hcl 0.4 Mg/Ml Vial) 0.04 mg IVPUSH Q5M PRN PRN Reason: Excessive sedation or RR < 8 Nicotine Polacrilex (Nicotine Polacrilex 2 Mg Gum) 2 mg BUCCAL Q2H PRN PRN Reason: Nicotine Cravings Quetiapine Fumarate (Quetiapine Fumarate 200 Mg Tablet) 200 mg PO BEDTIME [facility] Last Admin: 02/17/24 22:08 Dose: 200 mg Documented By: HECTOR Quetiapine Fumarate (Quetiapine Fumarate 25 Mg Tablet) 25 mg PO BID PRN PRN Reason: psychosis Risperidone (Risperidone 1 Mg Tablet) 1 mg PO BID [facility] Last Admin: 02/18/24 08:45 Dose: 1 mg Documented By: ESTHER Sodium Chloride (0.9 % Sodium Chloride Flush 3 Ml Syringe) 3 ml IVFLUSH QSHIFT [facility] Last Admin: 02/18/24 08:46 Dose: 3 ml Documented By: ESTHER Labs 02/18/24 06:22 02/18/24 06:22 Labs: Laboratory Results - last 24 hr 02/17/24 02/18/24 12:17 06:22 MCV 85.9 MCH 28.5 MCHC 33.2 RDW 12.9 Plt Count 208 MPV 10.3 Absolute Nucleated RBC 0.000 Nucleated RBC % (auto) 0.0 Anion Gap 9 L Estim Creat Clear Calc 158.3 Estimated GFR > 60 Fasting Glucose 93 Calcium 8.7 Hold Yellow Top See Note Blood Type B Positive Antibody Screen NEGATIVE Crossmatch See Detail Assessment and Plan (1) Mood disorder: Status: Acute Plan 29M PMH adhd, mood disorder, history of morbid obesity s/p gastric bypass transferred 02/17/24 from inpatient psychiatry due to bright red blood per rectum Acute blood loss anemia due to anastamosis site ulcer s/p EGD and cauterization 02/17/24 continue protonix infusion until 02/20/24 s/p 1 unit prbc 02/17/24 Monitor CBC Acute psychosis appears much improved Continue Lamictal, bupropion, Risperdal, Seroquel, lithium, Ativan Psychiatry follow-up will need care team clearance prior to discharge History of morbid obesity resolved status post gastric bypass Outpatient bariatric follow-up DVT prophylaxis-mechanical due to GI bleed Full code reason for continued hospitalization:monitoring due to severe gi bleed Quality Stroke Does the patient have a stroke diagnosis?: No VTE Prior VTE?: No VTE Risk Level:: Medical - low VTE Device Contraindication: N/A - Device Ordered VTE Drug Contraindication: Treatment Not Tolerated
--- NOTE | 2024-02-18 10:05 | PM.PSYCN ---
History of Present Illness Date of Service: 02/18/24 Chief Complaint: gi bleed Reason for Consult: ongoing treatment, transferred from in psych for acute psychosis Requesting physician: Lenard Valdovinos Discussed with referring provider: Yes Sources of Information: patient interviewed, chart reviewed and crisis/core team assessment reviewed HPI Narrative: Patient is a 29 yo male who carried the diagnosis of ADHD and was admitted to in the setting of yina and a now provisional diagnosis of bipolar disorder, MRE manic. He was on from 02/07 till 02/16 when he reported new onset acute bright red blood per rectum. He was evaluated and found to be orthostatic and was transferred to telemetry. GI performed an abdominal CT and patient was found to have bleeding in his small intestine and an EGD was performed to stop the UGIB. He is on the medical floor receiving IVF and IV PPI. Psychiatry team was consulted to continue psychiatric management while patient is on the medical floor Patient seen and his was in the room with the patient permission. He reports he is grateful and doing well. He feels like the medications he has been receiving while on have been really helpful in clearing his thoughts, organizing his behavior and helping him sleep. He denies SI. He denies AVH or other psychotic symptoms or delusions. He has been pleasant and he's been cooperative with care and his behavior is appropriate. Past Psychiatric History: IP: Once in 9th grade and once in 10th grade OP: N Trials: Wellbutrin, Strattera [facility] Medical History (Updated 02/18/24 @ 21:26 by Terry Ba MD) Lower gastrointestinal bleed Bright red blood per rectum ADHD Sleep apnea Asthma Morbid obesity due to excess calories Surgical History (Updated 02/18/24 @ 21:24 by Terry Ba MD) History of Malcolm-en-Y gastric bypass No significant past surgical history Family History: Maternal uncle-schizophrenia Social History: Born in [place] Father is a supply chain coordinator, brother and sister work with father. Mother lives with pt's brother Completed high school, security training, retail training, pharmacology tech program-worked with [employer] for 6 years, [employer]. Lived in [facility] Daughter 12 with pt and current Son age 4 with ex in [place] Trauma History: I am not sure Diagnostics Vital Signs (24Hr): Vital Signs - 24 hr 02/17/24 15:40 02/17/24 17:19 02/17/24 18:17 Temperature 96.8 F 97.6 F Pulse Rate 109 H 106 H Respiratory Rate 20 15 Blood Pressure 101/49 L 97/50 L Pulse Oximetry 99 100 98 Oxygen Delivery Method Room Air Room Air Room Air 02/17/24 18:32 02/17/24 19:03 02/17/24 19:46 Temperature 98.5 F 97.7 F 99.0 F Pulse Rate 103 H 91 97 Respiratory Rate 16 18 20 Blood Pressure 111/54 L 121/70 117/67 Pulse Oximetry 100 100 99 Oxygen Delivery Method Room Air Room Air Room Air 02/17/24 19:56 02/17/24 20:13 02/17/24 22:56 Temperature 97.7 F 97.2 F 98.4 F Pulse Rate 90 90 100 Respiratory Rate 18 20 20 Blood Pressure 121/70 140/90 H 123/71 Pulse Oximetry Oxygen Delivery Method 02/18/24 00:00 02/18/24 04:00 02/18/24 08:00 Temperature 98.7 F 98.7 F 97.8 F Pulse Rate 102 H 87 106 H Respiratory Rate 16 20 19 Blood Pressure 130/57 L 130/63 138/81 Pulse Oximetry 97 95 100 Oxygen Delivery Method Room Air Room Air Room Air BMI result Body Mass Index 30.4 Labs 02/18/24 06:22 02/18/24 06:22 Labs: Laboratory Results - last 48 hr 02/17/24 02/18/24 02/18/24 12:17 00:12 06:22 WBC 7.7 RBC 3.54 L Hgb 10.1 L 10.1 L Hct 29.2 L 30.4 L MCV 85.9 MCH 28.5 MCHC 33.2 RDW 12.9 Plt Count 208 MPV 10.3 Absolute Nucleated RBC 0.000 Nucleated RBC % (auto) 0.0 Sodium 137 Potassium 4.0 Chloride 105 Carbon Dioxide 27 Anion Gap 9 L BUN 15 Creatinine 0.67 Estim Creat Clear Calc 158.3 Estimated GFR > 60 Fasting Glucose 93 Calcium 8.7 Hold Yellow Top See Note Blood Type B Positive Antibody Screen NEGATIVE Crossmatch See Detail Imaging Radiology Impressions: ITS Impressions Abdomen/Pelvis CT 02/17/24 15:28 IMPRESSION: Status post gastric bypass surgery. Findings consistent with active GI bleeding into the proximal small bowel at the gastrojejunostomy anastomosis. Approximately 2 cm right adrenal nodule as detailed above, probably representing a benign adenoma, not definitively characterized as such without the benefit of 15 minutes delayed imaging. The finding probably represents a benign adenoma. Follow-up dedicated adrenal washout CT in one year is recommended for further evaluation. Electronically signed by: Pascual Gan MD 02/17/2024 04:53 PM EDT RP Mental Status Exam Mental Status Exam Narrative: Patient Appearance: Appropriate Patient Orientation: Person, Place, Time and Situation Level of Consciousness: Alert Patient Behavior: Appropriate, Talkative and Cooperative Mood Description: Appropriate and Cheerful Affect Description: Appropriate and Cheerful Patient Cognition Impaired: No Ability to Follow Directions: Good Speech Pattern: Spontaneous Speech Memory Description: Episodic Impaired Hallucinations: None Delusions: Not Present Thought Process: Goal Oriented. Thought Content: Goal Oriented Judgement: Good Medications Medications Current Medications Acetaminophen (Acetaminophen 325 Mg Tablet) 650 mg PO Q6H PRN PRN Reason: Pain, Mild (Pain Scale 1-3), fever or headache Bupropion HCl (Bupropion Hcl 75 Mg Tablet) 75 mg PO DAILY [facility] Last Admin: 02/18/24 08:52 Dose: 75 mg Calcium Carbonate (Calcium Carbonate 750 Mg Tab.Chew) 750 mg PO Q4H PRN PRN Reason: Heartburn Lactated Ringer's (Lr) 1,000 mls @ 100 mls/hr IVCONT .Q10H [facility] Last Admin: 02/18/24 05:50 Dose: 100 mls/hr Pantoprazole Sodium 80 mg/ (Sodium Chloride) 100 mls @ 10 mls/hr IV .Q10H [facility] Last Admin: 02/18/24 04:03 Dose: 8 mg/hr, 10 mls/hr Lamotrigine (Lamotrigine 25 Mg Tablet) 25 mg PO BEDTIME [facility] Last Admin: 02/17/24 22:08 Dose: 25 mg [place] Carbonate ([place] Carbonate Er 450 Mg Tablet.Er) 900 mg PO BEDTIME [facility] Last Admin: 02/17/24 22:08 Dose: 900 mg Lorazepam (Lorazepam 0.5 Mg Tablet) 0.5 mg PO BID [facility] Last Admin: 02/18/24 08:45 Dose: 0.5 mg Magnesium Hydroxide (Milk Of Magnesia 30 Ml Oral.Susp) 30 ml PO DAILY PRN PRN Reason: Constipation Melatonin (Melatonin 3 Mg Tablet) 6 mg PO BEDTIME PRN PRN Reason: Insomnia Naloxone HCl (Naloxone Hcl 0.4 Mg/Ml Vial) 0.04 mg IVPUSH Q5M PRN PRN Reason: Excessive sedation or RR < 8 Nicotine Polacrilex (Nicotine Polacrilex 2 Mg Gum) 2 mg BUCCAL Q2H PRN PRN Reason: Nicotine Cravings Quetiapine Fumarate (Quetiapine Fumarate 200 Mg Tablet) 200 mg PO BEDTIME [facility] Last Admin: 02/17/24 22:08 Dose: 200 mg Quetiapine Fumarate (Quetiapine Fumarate 25 Mg Tablet) 25 mg PO BID PRN PRN Reason: psychosis Risperidone (Risperidone 1 Mg Tablet) 1 mg PO BID [facility] Last Admin: 02/18/24 08:45 Dose: 1 mg Sodium Chloride (0.9 % Sodium Chloride Flush 3 Ml Syringe) 3 ml IVFLUSH QSHIFT [facility] Last Admin: 02/18/24 08:46 Dose: 3 ml Allergies Allergies Allergy/AdvReac Type Severity Reaction Status Date / Time No Known Allergies Allergy Verified 12/22/20 11:21 Assessment & Plan Assessment & Plan (1) Mood disorder: Status: Acute Code(s): F39 - Unspecified mood [affective] disorder Assessment and Plan: Continue current medication management without change. Psychiatry consult team to continue monitoring and decide final disposition. Discussed with hospitalist. (2) History of Malcolm-en-Y gastric bypass: Status: Acute Code(s): Z98.84 - Bariatric surgery status (3) Bright red blood per rectum: Status: Acute Code(s): K62.5 - Hemorrhage of anus and rectum (4) Lower gastrointestinal bleed: Status: Acute Code(s): K92.2 - Gastrointestinal hemorrhage, unspecified Plan 29M PMH adhd, mood disorder, history of morbid obesity s/p gastric bypass transferred 02/17/24 from inpatient psychiatry due to bright red blood per rectum Acute blood loss anemia due to anastamosis site ulcer s/p EGD and cauterization 02/17/24 continue protonix infusion until 02/20/24 s/p 1 unit prbc 02/17/24 Monitor CBC Total time managing care of this patient today ____ minutes. Patient educated on: diagnosis and medical condition Informed Consent: understands
--- NOTE | 2024-02-18 10:17 | MHC.CM.PN ---
CM MET WITH PT AND AT BEDSIDE, THEY REPORT THEY LIVE WITH HER PARENTS WHO ARE ALSO RAISING 3 OF THEIR GRAND KIDS IN THE HOME PT IS INDEPENDENT WITH CARE AND HAS NO SERVICES HE REPORTS HE HAS USED A NEBULIZER SINCE [employer], BUT HAS NOT HAD HIS OWN FOR YEARS, HE USES HIS WIFES PRN, BUT HOPES HE CAN GET ONE. HE DOES NOT HAVE A PCP AT THIS TIME BUT HAS A NEW PT APPT SCHEDULED FOR Monday AT [facility] @ [address] IN [place] PT IS AWARE CM CAN RESCHEDULE THIS IF HE IS NOT GOING TO DC IN TIME PT WILL COMPLETED A HCP TODAY NAMING HIS S/O, KELSEY ASCENCIO AND HER MOTHER, JOANNA ASCENCIO, HIS AGENTS DCP: HOME NO SERVICES VIA SELF-TRANSPORT
[2024-02-18] MEDS: QUEtiapine Fumarate 200 MG TABLET PO (21:32)
[2024-02-18] MEDS: Lithium Carbonate ER 450 MG TABLET.ER 900 MG PO (21:32)
[2024-02-18] MEDS: lamoTRIgine 25 MG TABLET PO (21:32)
[2024-02-19] VITALS (7 sets, daily range): BP systolic 111–132; BP diastolic 56–94; PULSE 97–108; RESP 16–20; TEMP 36–37.2; O2SAT 96–100
[2024-02-19] MEDS: Pantoprazole Sodium 80 MG in 0.9 % Sodium Chloride 80 ML 10 MG IV ×2 (05:48→17:13)
[2024-02-19 07:07] LABS: Anion Gap 10 (12-20); Blood Urea Nitrogen 14 mg/dL (9-16); Calcium 8.8 mg/dL (8.4-10.2); Carbon Dioxide 25 mmol/L (22-29); Chloride 107 mmol/L (96-108); Creatinine Clr Calc Pharmacy 149.3; Estimated Glomerular Filt Rate > 60; Glucose Fasting 88 mg/dL (60-99); Potassium 4.2 mmol/L (3.3-5.1); Sodium 138 mmol/L (135-145)
[2024-02-19 07:14] LABS: Hematocrit 30.5 % (42.0-52.0); Mean Corpuscular HGB Conc 32.8 g/dl (31.0-36.0); Mean Corpuscular Hemoglobin 28.8 pg (27.0-33.0); Mean Corpuscular Volume 87.9 fL (80.0-98.0); Mean Platelet Volume 10.4 fL (9.4-12.4); Platelet Count 230 X10*3/uL (160-400); Red Blood Count 3.47 X10*6/uL (4.60-5.80); Red Cell Distribution Width 13.3 % (11.0-16.0); White Blood Count 8.6 X10*3/uL (4.8-10.8)
--- NOTE | 2024-02-19 07:38 | HO.POSTANES ---
Post Anesthesia Evaluation Post Anesthesia Evaluation Date of Service: 02/19/24 Vital Signs: Vital Signs Temp Pulse Resp BP Pulse Ox O2 Del Method 02/19/24 03:04 99.0 F 97 16 111/61 97 Room Air 02/18/24 23:52 98.1 F 92 18 108/58 L 98 Room Air Anesthesia: Monitored Mental Status: Awake Pain Control: Satisfactory Nausea/Vomiting: None Hydration: Adequate Anesthesia-Related Issues: No Anes. Related Issues
[2024-02-19] MEDS: risperiDONE 1 MG TABLET PO ×2 (08:14→20:37)
[2024-02-19] MEDS: buPROPion HCL 75 MG TABLET PO (08:14)
[2024-02-19] MEDS: LORazepam 0.5 MG TABLET PO ×2 (08:14→20:36)
[2024-02-19] MEDS: Nicotine Polacrilex 2 MG GUM BUCCAL ×4 (08:16→17:14)
--- NOTE | 2024-02-19 08:42 | P.PNIM_ITS ---
Subjective Subjective Date of Service: 02/19/24 Interval History: Had 1 episode of melena yesterday Physical Exam 2 Vital Signs: Vital Signs: Last Vital Signs Temp 98.5 F 02/19/24 07:59 Pulse 103 H 02/19/24 07:59 Resp 18 02/19/24 07:59 BP 131/86 02/19/24 07:59 Pulse Ox 99 02/19/24 07:59 O2 Del Method Room Air 02/19/24 07:59 BMI result Body Mass Index 30.4 General: AO X 3, no acute distress Resp: CTA bilateral, no accessory muscles used CVS: S1,S2,RRR GI: soft, non tender, non distended Neuro: motor grossly intact, alert Psych: appropriate affect, appropriate insight Objective Data Active Medications Acetaminophen (Acetaminophen 325 Mg Tablet) 650 mg PO Q6H PRN PRN Reason: Pain, Mild (Pain Scale 1-3), fever or headache Bupropion HCl (Bupropion Hcl 75 Mg Tablet) 75 mg PO DAILY [facility] Last Admin: 02/19/24 08:14 Dose: 75 mg Documented By: MO Calcium Carbonate (Calcium Carbonate 750 Mg Tab.Chew) 750 mg PO Q4H PRN PRN Reason: Heartburn Pantoprazole Sodium 80 mg/ (Sodium Chloride) 100 mls @ 10 mls/hr IV .Q10H [facility] Last Admin: 02/19/24 05:48 Dose: 8 mg/hr, 10 mls/hr Documented By: HECTOR Lamotrigine (Lamotrigine 25 Mg Tablet) 25 mg PO BEDTIME [facility] Last Admin: 02/18/24 21:32 Dose: 25 mg Documented By: HECTOR [place] Carbonate ([place] Carbonate Er 450 Mg Tablet.Er) 900 mg PO BEDTIME [facility] Last Admin: 02/18/24 21:32 Dose: 900 mg Documented By: HECTOR Lorazepam (Lorazepam 0.5 Mg Tablet) 0.5 mg PO BID [facility] Last Admin: 02/19/24 08:14 Dose: 0.5 mg Documented By: MO Magnesium Hydroxide (Milk Of Magnesia 30 Ml Oral.Susp) 30 ml PO DAILY PRN PRN Reason: Constipation Melatonin (Melatonin 3 Mg Tablet) 6 mg PO BEDTIME PRN PRN Reason: Insomnia Naloxone HCl (Naloxone Hcl 0.4 Mg/Ml Vial) 0.04 mg IVPUSH Q5M PRN PRN Reason: Excessive sedation or RR < 8 Nicotine Polacrilex (Nicotine Polacrilex 2 Mg Gum) 2 mg BUCCAL Q2H PRN PRN Reason: Nicotine Cravings Last Admin: 02/19/24 08:16 Dose: 2 mg Documented By: MO Quetiapine Fumarate (Quetiapine Fumarate 200 Mg Tablet) 200 mg PO BEDTIME [facility] Last Admin: 02/18/24 21:32 Dose: 200 mg Documented By: HECTOR Quetiapine Fumarate (Quetiapine Fumarate 25 Mg Tablet) 25 mg PO BID PRN PRN Reason: psychosis Risperidone (Risperidone 1 Mg Tablet) 1 mg PO BID [facility] Last Admin: 02/19/24 08:14 Dose: 1 mg Documented By: MO Sodium Chloride (0.9 % Sodium Chloride Flush 3 Ml Syringe) 3 ml IVFLUSH QSHIFT [facility] Last Admin: 02/19/24 08:17 Dose: Not Given Documented By: MO Non-Admin Reason: IV Running Labs 02/19/24 06:12 02/19/24 06:12 Labs: Laboratory Results - last 24 hr 02/19/24 06:12 MCV 87.9 MCH 28.8 MCHC 32.8 RDW 13.3 Plt Count 230 MPV 10.4 Absolute Nucleated RBC 0.000 Nucleated RBC % (auto) 0.0 Anion Gap 10 L Estim Creat Clear Calc 149.3 Estimated GFR > 60 Fasting Glucose 88 Calcium 8.8 Assessment and Plan (1) Mood disorder: Status: Acute Plan 29M PMH adhd, mood disorder, history of morbid obesity s/p gastric bypass transferred 02/17/24 from inpatient psychiatry due to bright red blood per rectum Acute blood loss anemia due to anastamosis site ulcers s/p EGD and cauterization 02/17/24 continue protonix infusion until 02/20/24 s/p 1 unit prbc 02/17/24 Monitor CBC - appears stable with a hemoglobin around 10 Acute psychosis appears much improved Continue Lamictal, bupropion, Risperdal, Seroquel, lithium, Ativan Psychiatry following will need care team clearance prior to discharge History of morbid obesity resolved status post gastric bypass Outpatient bariatric follow-up DVT prophylaxis-mechanical due to GI bleed Full code reason for continued hospitalization:monitoring due to severe gi bleed Quality Stroke Does the patient have a stroke diagnosis?: No VTE Prior VTE?: No VTE Risk Level:: Medical - low VTE Device Contraindication: N/A - Device Ordered VTE Drug Contraindication: Treatment Not Tolerated
--- NOTE | 2024-02-19 10:23 | MHC.CM.PN ---
Per ROUNDS discussion, Patient is not yet medically cleared for dc and will need Careteam Eval prior to dc. CM will follow.
--- NOTE | 2024-02-19 19:25 | PM.EVENT ---
Event Note Date of Service: 02/19/24 Event Note: As per RN, patient had an episode of hematemesis. Will keep patient NPO. On IV Protonix infusion. Obtain CBC and resuscitate with IV crystalloids. Appreciate GI consult Time Spent With Patient Time: Total time managing care of this patient today ____ minutes.
[2024-02-19 19:50] LABS: Hematocrit 24.8 % (42.0-52.0); Hemoglobin 8.3 g/dl (14.0-18.0); Mean Corpuscular HGB Conc 33.5 g/dl (31.0-36.0); Mean Corpuscular Hemoglobin 29.4 pg (27.0-33.0); Mean Corpuscular Volume 87.9 fL (80.0-98.0); Platelet Count 238 X10*3/uL (160-400); Red Blood Count 2.82 X10*6/uL (4.60-5.80); Red Cell Distribution Width 13.3 % (11.0-16.0)
[2024-02-19] MEDS: Lactated Ringers 1,000 ML 999 ML IV (20:34)
[2024-02-19] MEDS: QUEtiapine Fumarate 200 MG TABLET PO (20:36)
[2024-02-19] MEDS: lamoTRIgine 25 MG TABLET PO (20:37)
[2024-02-19] MEDS: Lithium Carbonate ER 450 MG TABLET.ER 900 MG PO (20:47)
[2024-02-20] VITALS (7 sets, daily range): BP systolic 112–137; BP diastolic 52–74; PULSE 91–113; RESP 16–20; TEMP 36–37.3; O2SAT 97–100
[2024-02-20] MEDS: Pantoprazole Sodium 80 MG in 0.9 % Sodium Chloride 80 ML 10 MG IV ×2 (02:42→18:39)
[2024-02-20 06:09] LABS: Hematocrit 22.8 % (42.0-52.0); Hemoglobin 7.5 g/dl (14.0-18.0); Mean Corpuscular HGB Conc 32.9 g/dl (31.0-36.0); Mean Corpuscular Hemoglobin 29.3 pg (27.0-33.0); Mean Corpuscular Volume 89.1 fL (80.0-98.0); Mean Platelet Volume 10.5 fL (9.4-12.4); Platelet Count 226 X10*3/uL (160-400); Red Blood Count 2.56 X10*6/uL (4.60-5.80); Red Cell Distribution Width 13.4 % (11.0-16.0); White Blood Count 8.9 X10*3/uL (4.8-10.8)
[2024-02-20 06:38] LABS: Anion Gap 10 (12-20); Blood Urea Nitrogen 14 mg/dL (9-16); Calcium 8.4 mg/dL (8.4-10.2); Carbon Dioxide 26 mmol/L (22-29); Chloride 107 mmol/L (96-108); Creatinine Clr Calc Pharmacy 151.5; Estimated Glomerular Filt Rate > 60; Glucose Fasting 98 mg/dL (60-99); Potassium 3.9 mmol/L (3.3-5.1); Sodium 139 mmol/L (135-145)
--- NOTE | 2024-02-20 09:13 | P.PNIM_ITS ---
Subjective Subjective Date of Service: 02/20/24 Interval History: hematemesis early evening Physical Exam 2 Vital Signs: Vital Signs: Last Vital Signs Temp 97.3 F 02/20/24 07:49 Pulse 98 02/20/24 07:49 Resp 20 02/20/24 07:49 BP 131/73 02/20/24 07:49 Pulse Ox 100 02/20/24 07:49 O2 Del Method Room Air 02/20/24 07:49 BMI result Body Mass Index 30.4 General: AO X 3, no acute distress Resp: CTA bilateral, no accessory muscles used CVS: S1,S2,RRR GI: soft, non tender, non distended Neuro: motor grossly intact, alert Psych: appropriate affect, appropriate insight Objective Data Active Medications Acetaminophen (Acetaminophen 325 Mg Tablet) 650 mg PO Q6H PRN PRN Reason: Pain, Mild (Pain Scale 1-3), fever or headache Bupropion HCl (Bupropion Hcl 75 Mg Tablet) 75 mg PO DAILY [facility] Last Admin: 02/19/24 08:14 Dose: 75 mg Documented By: MO Calcium Carbonate (Calcium Carbonate 750 Mg Tab.Chew) 750 mg PO Q4H PRN PRN Reason: Heartburn Pantoprazole Sodium 80 mg/ (Sodium Chloride) 100 mls @ 10 mls/hr IV .Q10H [facility] Last Admin: 02/20/24 02:42 Dose: 8 mg/hr, 10 mls/hr Documented By: FRANCISCO J Lamotrigine (Lamotrigine 25 Mg Tablet) 25 mg PO BEDTIME [facility] Last Admin: 02/19/24 20:37 Dose: 25 mg Documented By: FRANCISCO J [place] Carbonate ([place] Carbonate Er 450 Mg Tablet.Er) 900 mg PO BEDTIME [facility] Last Admin: 02/19/24 20:47 Dose: 900 mg Documented By: FRANCISCO J Lorazepam (Lorazepam 0.5 Mg Tablet) 0.5 mg PO BID [facility] Last Admin: 02/19/24 20:36 Dose: 0.5 mg Documented By: FRANCISCO J Magnesium Hydroxide (Milk Of Magnesia 30 Ml Oral.Susp) 30 ml PO DAILY PRN PRN Reason: Constipation Melatonin (Melatonin 3 Mg Tablet) 6 mg PO BEDTIME PRN PRN Reason: Insomnia Naloxone HCl (Naloxone Hcl 0.4 Mg/Ml Vial) 0.04 mg IVPUSH Q5M PRN PRN Reason: Excessive sedation or RR < 8 Nicotine Polacrilex (Nicotine Polacrilex 2 Mg Gum) 2 mg BUCCAL Q2H PRN PRN Reason: Nicotine Cravings Last Admin: 02/19/24 17:14 Dose: 2 mg Documented By: MO Quetiapine Fumarate (Quetiapine Fumarate 200 Mg Tablet) 200 mg PO BEDTIME [facility] Last Admin: 02/19/24 20:36 Dose: 200 mg Documented By: FRANCISCO J Quetiapine Fumarate (Quetiapine Fumarate 25 Mg Tablet) 25 mg PO BID PRN PRN Reason: psychosis Risperidone (Risperidone 1 Mg Tablet) 1 mg PO BID [facility] Last Admin: 02/19/24 20:37 Dose: 1 mg Documented By: FRANCISCO J Sodium Chloride (0.9 % Sodium Chloride Flush 3 Ml Syringe) 3 ml IVFLUSH QSHIFT [facility] Last Admin: 02/19/24 23:58 Dose: Not Given Documented By: EUN Non-Admin Reason: Previously Administered Sucralfate (Sucralfate Oral Suspension 1 Gm/10 Ml Oral.Susp) 1 gm PO QIDACHS [facility] Labs 02/20/24 05:47 02/20/24 05:47 Labs: Laboratory Results - last 24 hr 02/17/24 02/19/24 02/20/24 12:17 19:43 05:47 MCV 87.9 89.1 MCH 29.4 29.3 MCHC 33.5 32.9 RDW 13.3 13.4 Plt Count 238 226 MPV 10.0 10.5 Absolute Nucleated RBC 0.000 0.000 Nucleated RBC % (auto) 0.0 0.0 Anion Gap 10 L Estim Creat Clear Calc 151.5 Estimated GFR > 60 Fasting Glucose 98 Calcium 8.4 Blood Type B Positive Antibody Screen NEGATIVE Crossmatch See Detail Assessment and Plan (1) Mood disorder: Status: Acute Plan 29M PMH adhd, mood disorder, history of morbid obesity s/p gastric bypass transferred 02/17/24 from inpatient psychiatry due to bright red blood per rectum Acute blood loss anemia hgb dropped from 14.8 to 11.2 on admission s/p 1 unit prbc 02/17/24 s/p EGD 02/17/24 - anastamosis site ulcers with bleeding vessel - cauterized had hematemesis evening 02/19/24, hgb dropped again 10 to 7.5 will transfuse 1 more unit prbc, continue protonix drip, adding carafate 1gm qid, clears today, npo after midnight for repeat EGD 02/21/24 Monitor CBC Acute psychosis appears much improved Continue Lamictal, bupropion, Risperdal, Seroquel, lithium, Ativan Psychiatry following will need care team clearance prior to discharge History of morbid obesity resolved status post gastric bypass Outpatient bariatric follow-up DVT prophylaxis-mechanical due to GI bleed Full code reason for continued hospitalization: recurrent hematemesis Quality Stroke Does the patient have a stroke diagnosis?: No VTE Prior VTE?: No VTE Risk Level:: Medical - low VTE Device Contraindication: N/A - Device Ordered VTE Drug Contraindication: Treatment Not Tolerated
[2024-02-20] MEDS: buPROPion HCL 75 MG TABLET PO (09:43)
[2024-02-20] MEDS: risperiDONE 1 MG TABLET PO ×2 (09:43→20:38)
[2024-02-20] MEDS: LORazepam 0.5 MG TABLET PO ×2 (09:43→20:38)
[2024-02-20] MEDS: Nicotine Polacrilex 2 MG GUM BUCCAL ×2 (09:49→13:30)
[2024-02-20] MEDS: Sucralfate Oral Suspension 1 GM/10 ML ORAL.SUSP PO ×3 (13:26→20:38)
[2024-02-20] MEDS: 0.9 % Sodium Chloride Flush 3 ML SYRINGE IVFLUSH ×2 (18:39→20:39)
[2024-02-20] MEDS: QUEtiapine Fumarate 200 MG TABLET PO (20:38)
[2024-02-20] MEDS: lamoTRIgine 25 MG TABLET PO (20:38)
[2024-02-20] MEDS: Lithium Carbonate ER 450 MG TABLET.ER 900 MG PO (20:38)
[2024-02-21] VITALS (8 sets, daily range): BP systolic 98–143; BP diastolic 51–74; PULSE 86–103; RESP 16–20; TEMP 36.7–37.1; O2SAT 98–100; BMI 30.4
[2024-02-21] MEDS: Pantoprazole Sodium 80 MG in 0.9 % Sodium Chloride 80 ML 10 MG IV ×2 (01:04→16:55)
[2024-02-21 07:34] LABS: Hematocrit 24.6 % (42.0-52.0); Hemoglobin 8.1 g/dl (14.0-18.0); Mean Corpuscular HGB Conc 32.9 g/dl (31.0-36.0); Mean Corpuscular Hemoglobin 28.8 pg (27.0-33.0); Mean Corpuscular Volume 87.5 fL (80.0-98.0); Mean Platelet Volume 11.6 fL (9.4-12.4); Platelet Count 181 X10*3/uL (160-400); Red Blood Count 2.81 X10*6/uL (4.60-5.80); Red Cell Distribution Width 14.4 % (11.0-16.0); White Blood Count 6.9 X10*3/uL (4.8-10.8)
[2024-02-21 07:52] LABS: Anion Gap 11 (12-20); Blood Urea Nitrogen 13 mg/dL (9-16); Calcium 8.5 mg/dL (8.4-10.2); Carbon Dioxide 23 mmol/L (22-29); Chloride 109 mmol/L (96-108); Creatinine Clr Calc Pharmacy 153.7; Estimated Glomerular Filt Rate > 60; Glucose Fasting 85 mg/dL (60-99); Potassium 3.9 mmol/L (3.3-5.1); Sodium 139 mmol/L (135-145)
[2024-02-21] MEDS: Lactated Ringers 1,000 ML 100 ML IVCONT (07:53)
--- NOTE | 2024-02-21 08:41 | P.PNGI_ITS ---
Subjective Subjective Date of Service: 02/21/24 Interval History: Patient was doing well till yesterday had bloody emesis with clots and food, today feels fine no abdominal pain no nausea or vomiting no SOB Critical Care Time (minutes): 0 Physical Exam 2 Vital Signs: Vital Signs: Last Vital Signs Temp 98.1 F 02/21/24 07:39 Pulse 93 02/21/24 07:39 Resp 16 02/21/24 07:39 BP 126/64 02/21/24 07:39 Pulse Ox 100 02/21/24 07:39 O2 Del Method Room Air 02/21/24 07:39 BMI result Body Mass Index 30.4 EXAM: GENERAL: The patient is well developed and nontoxic. VITAL SIGNS:see workflow HEENT: Nonicteric sclerae, PERRLA, EOMI. Oropharynx clear. Moist mucous membranes. Conjunctivae appear well perfused. No thyroid mass. CHEST: Chest wall is nontender. HEART: Regular rate and rhythm without murmurs. LUNGS: Clear to auscultation bilaterally. ABDOMEN: Soft, positive bowel sounds, nontender, no organomegaly.no flank tenderness SKIN: No rash, no excessive bruising, petechiae, or purpura. NEUROLOGIC: Cranial nerves II-XII intact without motor/sensory deficit. Psych: normal affect Objective Data Labs 02/21/24 06:32 02/21/24 06:32 Labs: Laboratory Results - last 24 hr 02/17/24 02/21/24 12:17 06:32 WBC 6.9 RBC 2.81 L Hgb 8.1 L Hct 24.6 L MCV 87.5 MCH 28.8 MCHC 32.9 RDW 14.4 Plt Count 181 MPV 11.6 Absolute Nucleated RBC 0.000 Nucleated RBC % (auto) 0.0 Sodium 139 Potassium 3.9 Chloride 109 H Carbon Dioxide 23 Anion Gap 11 L BUN 13 Creatinine 0.69 Estim Creat Clear Calc 153.7 Estimated GFR > 60 Fasting Glucose 85 Calcium 8.5 Blood Type B Positive Antibody Screen NEGATIVE Crossmatch See Detail Procedures Date of Service Date of Service: 02/21/24 Progress Note: A&P Assessment and plan (1) History of Malcolm-en-Y gastric bypass: Status: Acute Plan 1/ Anastomotic ulcer, s/p cautery, had further episode of bleeding and low HGB PLAN: 1/ repeat EGd today for further assessment, possible clipping 2/ cont PPI, sucralafate Time Spent With Patient Time: Total time managing care of this patient today ____ minutes. Quality Stroke Does the patient have a stroke diagnosis?: No VTE Prior VTE?: No VTE Risk Level:: Medical - low VTE Device Contraindication: N/A - Device Ordered VTE Drug Contraindication: Treatment Not Tolerated
--- NOTE | 2024-02-21 08:45 | MHC.SHP ---
Pre-Procedural Eval Section A - 24 Hr Update-Section A only Date of Service: 02/21/24 The patient is an INPATIENT: Yes The patient has been examined within 24 hours of the surgical procedure. The History & Physical has been completed within 30 days and I have reviewed it.: Yes Section B - Complete if H&P > 30 days Chief Complaint: gi bleed Allergies: Allergies Allergy/AdvReac Type Severity Reaction Status Date / Time No Known Allergies Allergy Verified 12/22/20 11:21 Plan Diagnosis/Plan: Unchanged I have reviewed the history and physical and performed a pertinent physical examination on my patient. No changes have occurred unless specified. Time Spent With Patient Time: Total time managing care of this patient today ____ minutes.
--- NOTE | 2024-02-21 08:56 | P.CONAN_ITS ---
HPI - Anesthesia Eval Consult details Narrative: for EGD PMFSH Active Problems Active Problems: All Active Problems Lower gastrointestinal bleed (Acute) Bright red blood per rectum (Acute) History of Malcolm-en-Y gastric bypass (Acute) Mood disorder (Acute) Medical clearance for psychiatric admission (Acute) Morbid obesity due to excess calories (Acute) BMI 45.0-49.9, adult (Acute) History of smoking (Acute) Mild depression (Acute) Morbid obesity with BMI of 45.0-49.9, adult (Acute) Vitamin D deficiency (Acute) BMI 50.0-59.9, adult (Acute) Shortness of breath (Acute) Preoperative examination (Acute) Past Medical History Medical History Lower gastrointestinal bleed Bright red blood per rectum ADHD Sleep apnea Asthma Morbid obesity due to excess calories Family History Family History Mother No problems noted. Father Sleep apnea Sister No problems noted. Brother Hypertension Son No problems noted. Daughter Eczema Family history of problems with anesthesia: No Surgical History Surgical History History of Malcolm-en-Y gastric bypass No significant past surgical history History of Problems with Anesthesia: No Social History Social History Household Members: Spouse and Family Housing: House Are you a primary primary care sales representative to a significant other at home: No Do you presently have visiting nurse or other home services: No Alcohol intake: current Alcohol intake frequency: holidays/special occasions only Patient Tobacco Use Status: Former Tobacco user Cigarettes Per Day: 2 Use of substances other than those prescribed or required for medical reasons: No Substance Use Type: Marijuana Substance Use Frequency: Occasionally Currently Displaying Signs/Symptoms of Drug Intoxication Withdrawal: No Have you been hit, kicked, punched, or otherwise hurt by someone within the past year? If so, by whom?: No Do you feel safe in your current relationship?: Yes Is there a partner from a previous relationship who is making you feel unsafe now?: No Are you made to feel afraid or neglected: No Are you DNR?: No Advance Directives: No Advance Directives Information Provided: Yes Do you have a plan to hurt others: No Plan Recently lost weight without trying: No Eating poorly because of decreased appetite: No Nutrition Risks: No Nutritional Risk Poor oral hygiene: No service: No Sexual orientation: Straight/Heterosexual Meds Allergies Allergy/AdvReac Type Severity Reaction Status Date / Time No Known Allergies Allergy Verified 12/22/20 11:21 Active Medications: Current Medications Acetaminophen (Acetaminophen 325 Mg Tablet) 650 mg PO Q6H PRN PRN Reason: Pain, Mild (Pain Scale 1-3), fever or headache Bupropion HCl (Bupropion Hcl 75 Mg Tablet) 75 mg PO DAILY [facility] Last Admin: 02/20/24 09:43 Dose: 75 mg Calcium Carbonate (Calcium Carbonate 750 Mg Tab.Chew) 750 mg PO Q4H PRN PRN Reason: Heartburn Pantoprazole Sodium 80 mg/ (Sodium Chloride) 100 mls @ 10 mls/hr IV .Q10H [facility] Last Admin: 02/21/24 01:04 Dose: 8 mg/hr, 10 mls/hr Lactated Ringer's (Lr) 1,000 mls @ 100 mls/hr IVCONT .Q10H [facility] Last Admin: 02/21/24 07:53 Dose: 100 mls/hr Lamotrigine (Lamotrigine 25 Mg Tablet) 25 mg PO BEDTIME [facility] Last Admin: 02/20/24 20:38 Dose: 25 mg [place] Carbonate ([place] Carbonate Er 450 Mg Tablet.Er) 900 mg PO BEDTIME [facility] Last Admin: 02/20/24 20:38 Dose: 900 mg Lorazepam (Lorazepam 0.5 Mg Tablet) 0.5 mg PO BID [facility] Last Admin: 02/20/24 20:38 Dose: 0.5 mg Magnesium Hydroxide (Milk Of Magnesia 30 Ml Oral.Susp) 30 ml PO DAILY PRN PRN Reason: Constipation Melatonin (Melatonin 3 Mg Tablet) 6 mg PO BEDTIME PRN PRN Reason: Insomnia Naloxone HCl (Naloxone Hcl 0.4 Mg/Ml Vial) 0.04 mg IVPUSH Q5M PRN PRN Reason: Excessive sedation or RR < 8 Nicotine Polacrilex (Nicotine Polacrilex 2 Mg Gum) 2 mg BUCCAL Q2H PRN PRN Reason: Nicotine Cravings Last Admin: 02/20/24 13:30 Dose: 2 mg Quetiapine Fumarate (Quetiapine Fumarate 200 Mg Tablet) 200 mg PO BEDTIME [facility] Last Admin: 02/20/24 20:38 Dose: 200 mg Quetiapine Fumarate (Quetiapine Fumarate 25 Mg Tablet) 25 mg PO BID PRN PRN Reason: psychosis Risperidone (Risperidone 1 Mg Tablet) 1 mg PO BID [facility] Last Admin: 02/20/24 20:38 Dose: 1 mg Sodium Chloride (0.9 % Sodium Chloride Flush 3 Ml Syringe) 3 ml IVFLUSH QSHIFT [facility] Last Admin: 02/20/24 20:39 Dose: 3 ml Sucralfate (Sucralfate Oral Suspension 1 Gm/10 Ml Oral.Susp) 1 gm PO QIDACHS [facility] Last Admin: 02/20/24 20:38 Dose: 1 gm Exam Height,Weight and Vital Signs: Height 5 ft 5 in Weight 82.9 kg Last Vital Signs Temp 98.1 F 02/21/24 07:39 Pulse 93 02/21/24 07:39 Resp 16 02/21/24 07:39 BP 126/64 02/21/24 07:39 Pulse Ox 100 02/21/24 07:39 O2 Del Method Room Air 02/21/24 07:39 Pertinent Lab Results Pertinent Lab Results: Laboratory Tests 02/17/24 02/18/24 02/18/24 12:17 00:12 06:22 WBC 7.7 RBC 3.54 L Hgb 10.1 L 10.1 L Hct 29.2 L 30.4 L MCV 85.9 MCH 28.5 MCHC 33.2 RDW 12.9 Plt Count 208 MPV 10.3 Absolute Nucleated RBC 0.000 Nucleated RBC % (auto) 0.0 Sodium 137 Potassium 4.0 Chloride 105 Carbon Dioxide 27 Anion Gap 9 L BUN 15 Creatinine 0.67 Estim Creat Clear Calc 158.3 Estimated GFR > 60 Fasting Glucose 93 Calcium 8.7 Hold Yellow Top See Note Blood Type B Positive Antibody Screen NEGATIVE Crossmatch See Detail 02/19/24 02/19/24 02/20/24 06:12 19:43 05:47 WBC 8.6 11.0 H 8.9 RBC 3.47 L 2.82 L 2.56 L Hgb 10.0 L 8.3 L 7.5 L Hct 30.5 L 24.8 L 22.8 L MCV 87.9 87.9 89.1 MCH 28.8 29.4 29.3 MCHC 32.8 33.5 32.9 RDW 13.3 13.3 13.4 Plt Count 230 238 226 MPV 10.4 10.0 10.5 Absolute Nucleated RBC 0.000 0.000 0.000 Nucleated RBC % (auto) 0.0 0.0 0.0 Sodium 138 139 Potassium 4.2 3.9 Chloride 107 107 Carbon Dioxide 25 26 Anion Gap 10 L 10 L BUN 14 14 Creatinine 0.71 0.70 Estim Creat Clear Calc 149.3 151.5 Estimated GFR > 60 > 60 Fasting Glucose 88 98 Calcium 8.8 8.4 Hold Yellow Top Blood Type Antibody Screen Crossmatch 02/21/24 06:32 WBC 6.9 RBC 2.81 L Hgb 8.1 L Hct 24.6 L MCV 87.5 MCH 28.8 MCHC 32.9 RDW 14.4 Plt Count 181 MPV 11.6 Absolute Nucleated RBC 0.000 Nucleated RBC % (auto) 0.0 Sodium 139 Potassium 3.9 Chloride 109 H Carbon Dioxide 23 Anion Gap 11 L BUN 13 Creatinine 0.69 Estim Creat Clear Calc 153.7 Estimated GFR > 60 Fasting Glucose 85 Calcium 8.5 Hold Yellow Top Blood Type Antibody Screen Crossmatch Airway Mallampati Class: I TM Dist: >3cm Neck ROM: Full Loose/Missing/Broken Teeth: No Heart: ok Lungs: ok Assessment and Plan Assessment Anesthesia Assessment: Anesthesia Plan Discussed and Chart Reviewed Final Anesthetic Review Family History of Problems with Anesthesia: No History of Problems with Anesthesia: No NPO: Yes ASA Class: III Final Preanesthetic Review: No Changes in Pt Med Stat, Meds/Allgs Chart Reviewed, Consent Obtained/Reviewed and Anes Risks/Benef Reviewed Patient Risk: Intermediate Procedure Risk: Intermediate Anesthetic Plan Anesthetic Plan: Agree w/ Assess. and Plan and TIVA Disposition: Standard PACU
--- NOTE | 2024-02-21 09:15 | W.PM.OPN ---
Operative Note Operative Note Date of Service: 02/21/24 Narrative: Procedure Description: EGD Indication: ulcer Anesthesia: MAC FLEXIBLE TRANSORAL UPPER GASTROINTESTINAL ENDOSCOPY UPPER ENDOSCOPY Consent: Indications for the procedure and potential complications of bleeding, perforation, reaction to medications and missed diagnosis were discussed with the patient and informed consent was obtained. Instrument: Olympus GIF H 190 J mid size upper endoscope Monitoring: Vital signs and clinical assessment, continuous EKG monitoring, Pulse oximetry, Carbon Dioxide monitoring and blood pressure monitoring were done throughout the procedure. Procedure: The patient was placed in the left lateral decubitis position and pre-procedure medications were administered and a bite block was placed. The endoscope was inserted into the mouth and advanced under direct vision to the jejunum. A careful inspection was made as the upper endoscope was withdrawn including a retroflexed examination of the proximal stomach; Findings and interventions are described below. Hx of gastric bypass Findings: Larynx:normal Esophagus: GE junction at 38 cm, diaphragm hiatus at 38 cm, normal mucosa Stomach pouch noted: there was a small ulcer at the distal part of the pouch with oozing noted. x2 clips applied with hemospray, bleeding then ceased . Biopsies were obtained. Grade 2 flap valve on retroflexed examination of the cardia. Jejunum: Normal Intervention: Biopsies as noted above, clips and control of bleeding Impression/Findings: Stomach pouch ulcer, PLAN: clears today and advance diet tonight if stable cont with PPI--open capsule and mix with apple sauce o/p f/u GI office if h pylori pos then treat
[2024-02-21] MEDS: risperiDONE 1 MG TABLET PO ×2 (10:20→20:45)
[2024-02-21] MEDS: 0.9 % Sodium Chloride Flush 3 ML SYRINGE IVFLUSH ×3 (10:20→20:45)
[2024-02-21] MEDS: LORazepam 0.5 MG TABLET PO ×2 (10:20→20:45)
[2024-02-21] MEDS: buPROPion HCL 75 MG TABLET PO (10:20)
--- NOTE | 2024-02-21 10:26 | MHC.CM.PN ---
Per ROUNDS discussion, Patient may be medically cleared for dc today, pending results of repeat EGD today;home is the goal and CM will continue to follow.
[2024-02-21] MEDS: Sucralfate Oral Suspension 1 GM/10 ML ORAL.SUSP PO ×4 (10:32→20:44)
[2024-02-21] MEDS: Nicotine Polacrilex 2 MG GUM BUCCAL (11:54)
--- NOTE | 2024-02-21 13:05 | P.PNIM_ITS ---
Subjective Subjective Date of Service: 02/21/24 Interval History: seen and evaluated this afternoon no bleeding overnight Hb stable went for EGD showing small oozing ulceration in stomach no other events Review of Systems Review of Systems: Yes all other systems are reviewed and are negative Physical Exam 2 Vital Signs: Vital Signs: Last Vital Signs Temp 98.0 F 02/21/24 12:00 Pulse 86 02/21/24 12:00 Resp 18 02/21/24 12:00 BP 135/74 02/21/24 12:00 Pulse Ox 100 02/21/24 12:00 O2 Del Method Room Air 02/21/24 12:00 BMI result Body Mass Index 30.4 Const: Other: Constitutional : interactive, not in distress Cardiovascular : no JVP, no lower extremity edema Respiratory : bilateral chest movement, not in resp distress Gastrointestinal: soft, lax, Non tender Skin : Warm, Dry Neurological : Alert & oriented , No focal deficit Objective Data Active Medications Acetaminophen (Acetaminophen 325 Mg Tablet) 650 mg PO Q6H PRN PRN Reason: Pain, Mild (Pain Scale 1-3), fever or headache Bupropion HCl (Bupropion Hcl 75 Mg Tablet) 75 mg PO DAILY [facility] Last Admin: 02/21/24 10:20 Dose: 75 mg Documented By: VICTORIA Calcium Carbonate (Calcium Carbonate 750 Mg Tab.Chew) 750 mg PO Q4H PRN PRN Reason: Heartburn Pantoprazole Sodium 80 mg/ (Sodium Chloride) 100 mls @ 10 mls/hr IV .Q10H [facility] Last Admin: 02/21/24 01:04 Dose: 8 mg/hr, 10 mls/hr Documented By: FREDERIC Lactated Ringer's (Lr) 1,000 mls @ 100 mls/hr IVCONT .Q10H [facility] Last Admin: 02/21/24 07:53 Dose: 100 mls/hr Documented By: JAVIER Lamotrigine (Lamotrigine 25 Mg Tablet) 25 mg PO BEDTIME [facility] Last Admin: 02/20/24 20:38 Dose: 25 mg Documented By: FREDERIC [place] Carbonate ([place] Carbonate Er 450 Mg Tablet.Er) 900 mg PO BEDTIME [facility] Last Admin: 02/20/24 20:38 Dose: 900 mg Documented By: FREDERIC Lorazepam (Lorazepam 0.5 Mg Tablet) 0.5 mg PO BID [facility] Last Admin: 02/21/24 10:20 Dose: 0.5 mg Documented By: VICTORIA Magnesium Hydroxide (Milk Of Magnesia 30 Ml Oral.Susp) 30 ml PO DAILY PRN PRN Reason: Constipation Melatonin (Melatonin 3 Mg Tablet) 6 mg PO BEDTIME PRN PRN Reason: Insomnia Naloxone HCl (Naloxone Hcl 0.4 Mg/Ml Vial) 0.04 mg IVPUSH Q5M PRN PRN Reason: Excessive sedation or RR < 8 Naloxone HCl (Naloxone Hcl 0.4 Mg/Ml Vial) 0.04 mg IVPUSH Q5M PRN PRN Reason: Excessive sedation or RR < 8 Nicotine Polacrilex (Nicotine Polacrilex 2 Mg Gum) 2 mg BUCCAL Q2H PRN PRN Reason: Nicotine Cravings Last Admin: 02/21/24 11:54 Dose: 2 mg Documented By: VICTORIA Quetiapine Fumarate (Quetiapine Fumarate 200 Mg Tablet) 200 mg PO BEDTIME [facility] Last Admin: 02/20/24 20:38 Dose: 200 mg Documented By: FREDERIC Quetiapine Fumarate (Quetiapine Fumarate 25 Mg Tablet) 25 mg PO BID PRN PRN Reason: psychosis Risperidone (Risperidone 1 Mg Tablet) 1 mg PO BID [facility] Last Admin: 02/21/24 10:20 Dose: 1 mg Documented By: VICTORIA Sodium Chloride (0.9 % Sodium Chloride Flush 3 Ml Syringe) 3 ml IVFLUSH QSHIFT [facility] Last Admin: 02/21/24 10:20 Dose: 3 ml Documented By: VICTORIA Sucralfate (Sucralfate Oral Suspension 1 Gm/10 Ml Oral.Susp) 1 gm PO QIDACHS [facility] Last Admin: 02/21/24 10:32 Dose: 1 gm Documented By: VICTORIA Labs 02/21/24 06:32 02/21/24 06:32 Labs: Laboratory Results - last 24 hr 02/21/24 06:32 MCV 87.5 MCH 28.8 MCHC 32.9 RDW 14.4 Plt Count 181 MPV 11.6 Absolute Nucleated RBC 0.000 Nucleated RBC % (auto) 0.0 Anion Gap 11 L Estim Creat Clear Calc 153.7 Estimated GFR > 60 Fasting Glucose 85 Calcium 8.5 Assessment and Plan (1) Lower gastrointestinal bleed: Status: Acute (2) Bright red blood per rectum: Status: Acute (3) Acute on chronic blood loss anemia: Status: Acute Plan 29M PMH adhd, mood disorder, history of morbid obesity s/p gastric bypass transferred 02/17/24 from inpatient psychiatry due to bright red blood per rectum Acute blood loss anemia 2/2 gastric ulcers hgb dropped from 14.8 to 11.2 on admission s/p 2 unit prbc s/p EGD 02/17/24 - anastamosis site ulcers with bleeding vessel - cauterized had hematemesis evening 02/19/24, hgb dropped again 10 to 7.5 EGD 02/20 showing oozing ulceration continue protonix drip, carafate 1gm qid\ start clears today, advance as tolerated Monitor CBC Acute psychosis appears much improved Continue Lamictal, bupropion, Risperdal, Seroquel, lithium, Ativan Psychiatry following will need care team clearance prior to discharge History of morbid obesity resolved status post gastric bypass Outpatient bariatric follow-up DVT prophylaxis-mechanical due to GI bleed Full code reason for continued hospitalization: recurrent hematemesis and blood loss anemia for CBC monitoring and high risk to rebleed Quality Stroke Does the patient have a stroke diagnosis?: No VTE Prior VTE?: No VTE Risk Level:: Medical - low VTE Device Contraindication: N/A - Device Ordered VTE Drug Contraindication: Treatment Not Tolerated
[2024-02-21] MEDS: Pantoprazole Sodium 40 MG/10 ML VIAL IVPUSH (16:56)
[2024-02-21] MEDS: lamoTRIgine 25 MG TABLET PO (20:45)
[2024-02-21] MEDS: Lithium Carbonate ER 450 MG TABLET.ER 900 MG PO (20:45)
[2024-02-21] MEDS: QUEtiapine Fumarate 200 MG TABLET PO (20:45)
[2024-02-22] VITALS: BP 115/56; PULSE 86; RESP 20; TEMP 36.6; O2SAT 98
[2024-02-22 03:52] VITALS: BP 128/63; PULSE 82; RESP 20; TEMP 36.3; O2SAT 98
[2024-02-22] MEDS: Pantoprazole Sodium 40 MG/10 ML VIAL IVPUSH (06:49)
[2024-02-22 06:58] LABS: Hematocrit 24.3 % (42.0-52.0); Hemoglobin 7.7 g/dl (14.0-18.0); Mean Corpuscular HGB Conc 31.7 g/dl (31.0-36.0); Mean Corpuscular Hemoglobin 28.2 pg (27.0-33.0); Mean Platelet Volume 10.1 fL (9.4-12.4); Platelet Count 276 X10*3/uL (160-400); Red Blood Count 2.73 X10*6/uL (4.60-5.80); Red Cell Distribution Width 14.4 % (11.0-16.0); White Blood Count 7.6 X10*3/uL (4.8-10.8)
[2024-02-22 07:10] VITALS: BP 111/73; PULSE 87; RESP 18; TEMP 37.1; O2SAT 100
--- NOTE | 2024-02-22 08:07 | HO.POSTANES ---
Post Anesthesia Evaluation Post Anesthesia Evaluation Date of Service: 02/22/24 Vital Signs: Vital Signs Temp Pulse Resp BP Pulse Ox O2 Del Method 02/22/24 07:10 98.8 F 87 18 111/73 100 Room Air 02/22/24 03:52 97.4 F 82 20 128/63 98 Room Air 02/22/24 00:00 97.9 F 86 20 115/56 L 98 Room Air Anesthesia: Monitored Mental Status: Awake Pain Control: Satisfactory Nausea/Vomiting: None Hydration: Adequate Anesthesia-Related Issues: No Anes. Related Issues
[2024-02-22] MEDS: Sodium Ferric Gluconat/Sucrose 125 MG in 0.9 % Sodium Chloride 100 ML 100 MG IV (08:48)
[2024-02-22] MEDS: LORazepam 0.5 MG TABLET PO (08:52)
[2024-02-22] MEDS: buPROPion HCL 75 MG TABLET PO (08:52)
[2024-02-22] MEDS: risperiDONE 1 MG TABLET PO (08:52)
[2024-02-22] MEDS: 0.9 % Sodium Chloride Flush 3 ML SYRINGE IVFLUSH (08:52)
[2024-02-22] MEDS: Sucralfate Oral Suspension 1 GM/10 ML ORAL.SUSP PO ×2 (08:52→12:20)
[2024-02-22] MEDS: Nicotine Polacrilex 2 MG GUM BUCCAL ×3 (08:58→15:24)
[2024-02-22 09:57] VITALS: O2SAT 100
[2024-02-22 10:45] VITALS: BP 134/73; PULSE 90; RESP 18; TEMP 36.5; O2SAT 100
--- NOTE | 2024-02-22 12:30 | MHC.CARE ---
Pt no longer meets criteria for IPLOC and is safe to D/C home referrals to PHP and [facility]. Provider in agreement.
--- NOTE | 2024-02-22 12:59 | P.PNGI_ITS ---
Subjective Subjective Date of Service: 02/22/24 Interval History: doing well today no abdominal pain no nausea or vomiting no melena taking PO without issue, Critical Care Time (minutes): 0 Physical Exam 2 Vital Signs: Vital Signs: Last Vital Signs Temp 97.7 F 02/22/24 10:45 Pulse 90 02/22/24 10:45 Resp 18 02/22/24 10:45 BP 134/73 02/22/24 10:45 Pulse Ox 100 02/22/24 10:45 O2 Del Method Room Air 02/22/24 10:45 BMI result Body Mass Index 30.4 EXAM: GENERAL: The patient is well developed and nontoxic. VITAL SIGNS:see workflow HEENT: Nonicteric sclerae, PERRLA, EOMI. Oropharynx clear. Moist mucous membranes. Conjunctivae appear pale. No thyroid mass. CHEST: Chest wall is nontender. HEART: Regular rate and rhythm without murmurs. LUNGS: Clear to auscultation bilaterally. ABDOMEN: Soft, positive bowel sounds, nontender, no organomegaly.no flank tenderness SKIN: No rash, no excessive bruising, petechiae, or purpura. NEUROLOGIC: Cranial nerves II-XII intact without motor/sensory deficit. Psych: normal affect Objective Data Labs 02/22/24 06:06 02/21/24 06:32 Labs: Laboratory Results - last 24 hr 02/22/24 06:06 WBC 7.6 RBC 2.73 L Hgb 7.7 L Hct 24.3 L MCV 89.0 MCH 28.2 MCHC 31.7 RDW 14.4 Plt Count 276 D MPV 10.1 Absolute Nucleated RBC 0.000 Nucleated RBC % (auto) 0.0 Procedures Date of Service Date of Service: 02/22/24 Progress Note: A&P Assessment and plan (1) Gastric ulcer: Status: Acute Plan 1/ Bleeding gastric ulcer, s/p clip and hemospray, doing well, HGB stable PLAN: 1/ Cont PPI --open capsule and mix with apple sauce, can try omeprazole 40 mg BID, with carafate but at different times 2/ advised on avoiding xs nsaid use and smoking cessation 3/ o/p f/u with me or Dr Barakat Time Spent With Patient Time: Total time managing care of this patient today ____ minutes. Quality Stroke Does the patient have a stroke diagnosis?: No VTE Prior VTE?: No VTE Risk Level:: Medical - low VTE Device Contraindication: N/A - Device Ordered VTE Drug Contraindication: Treatment Not Tolerated
--- NOTE | 2024-02-22 14:39 | P.DS_ITS ---
DS: Providers Provider Date of Service: 02/22/24 Date of admission: 02/17/24 13:48 Date of discharge: 02/22/24 Primary care physician: None Physician Consults: 02/17/24 13:47 Consult to Gastroenterology Routine Consulting Provider: Arpit Barakat Reason for consultation: gi bleed 02/17/24 13:58 Consult to Psychiatry Routine Consulting Provider: Psych Covering Reason for consultation: ongoing treatment, from inpt psych for acute psychosis 02/19/24 19:24 Consult to Gastroenterology Routine Consulting Provider: Chris Mcgraw Reason for consultation: hematemessis 02/22/24 10:28 Consult to Care Team Routine Comment: Reason for consultation: Pending discharge, Medically free for eval and rec. DS: Diagnosis Discharge Diagnosis (1) Gastric ulcer: Status: Acute (2) Acute on chronic blood loss anemia: Status: Acute (3) Lower gastrointestinal bleed: Status: Acute (4) Bright red blood per rectum: Status: Acute (5) History of Malcolm-en-Y gastric bypass: Status: Acute (6) Mood disorder: Status: Acute DS: Summary Hospital Course Hospital Course: Admission note HPI 29M PMH adhd, mood disorder, history of morbid obesity s/p gastric bypass was admitted to inpatient psychiatry on 02/07/24 for acute psychosis, on 02/17/24 started having several episodes of BRBPR, associated with dizziness and positive orthostasis. Patient reports abdominal bubbling but no pain. Denies chest pain shortness of breath nausea vomiting. Patient is not on anticoagulation. Has no history of bleed. Hemoglobin decreased over the week from 14.8-11.2. Hospital course The patient was admitted for treatment of # Acute blood loss anemia secondary to gastric ulcers as his Hemoglobin dropped from 14.8 to 11.2 requiring blood transfusion. Started on IV fluids, IV Protonix and Carafate. Had EGD on 02/17/24 with reported anastamosis site ulcers with bleeding vessel - cauterized and controlled by GI. He had hematemesis evening 02/19/24, hgb dropped again 10 to 7.5 requiring 1 unit transfusion as Hb remained stable between 7.5-8. EGD 02/20 showing oozing ulceration that was controlled with no further drop In Hb or reported bleeding. Advanced diet with good tolerance. To be discharged home on Omeprazole BID and Carafate with a plan tofollow with GI as outpatient and recheck CBC next week. # Hx of recent psychosis He was admitted to medical floor directly from psychiatry where he was admitted for acute psychosis and treated with medications during that time. appears much improved during this hospital stay with no signs of psychosis. He was Continued on recently started psychiatric medications of Lamictal, bupropion, Risperdal, Seroquel, lithium, Ativan. Psychiatry team evaluated him during hospital stay and recommended to continue current therapy and to follow as outpatient. He was seen by care team who felt he is safe to discharge and does not need to go back to psychiatric guzman. Discharge plan Take Omeprazole twice daily Carafate for 1 week Iron supplement Continue psychiatric medications as prescribed To follow up with psychiatry as outpatient as scheduled. Time Attestation Discharge Coordination Time (in mins): 42 Quality: Safe Use of Opioids Does Pt have an Active Cancer Diagnosis on the Problem List?: No Quality: Stroke Does the patient have a stroke diagnosis?: No Physical Exam Vital Signs: Vital Signs: Last Vital Signs Temp 97.7 F 02/22/24 10:45 Pulse 90 02/22/24 10:45 Resp 18 02/22/24 10:45 BP 134/73 02/22/24 10:45 Pulse Ox 100 02/22/24 10:45 O2 Del Method Room Air 02/22/24 10:45 BMI result Body Mass Index 30.4 Const: Other: Constitutional : interactive, not in distress Cardiovascular : no JVP, no lower extremity edema Respiratory : bilateral chest movement, not in resp distress Gastrointestinal: soft, lax, Non tender Skin : Warm, Dry Neurological : Alert & oriented , No focal deficit DS: Data Data Completed and Pending Completed studies during hospitalization [Text1]: Pending at discharge 02/17/24 18:07 Surgical [PTH] Routine Pending studies at discharge: Pending at discharge 02/21/24 09:14 Surgical [PTH] Routine Labs on day of discharge: Laboratory Results - last 24 hr 02/22/24 06:06 WBC 7.6 RBC 2.73 L Hgb 7.7 L Hct 24.3 L MCV 89.0 MCH 28.2 MCHC 31.7 RDW 14.4 Plt Count 276 D MPV 10.1 Absolute Nucleated RBC 0.000 Nucleated RBC % (auto) 0.0 Imaging Chest x-ray: Radiologist's impression: ITS Impressions Abdomen/Pelvis CT 02/17/24 15:28 IMPRESSION: Status post gastric bypass surgery. Findings consistent with active GI bleeding into the proximal small bowel at the gastrojejunostomy anastomosis. Approximately 2 cm right adrenal nodule as detailed above, probably representing a benign adenoma, not definitively characterized as such without the benefit of 15 minutes delayed imaging. The finding probably represents a benign adenoma. Follow-up dedicated adrenal washout CT in one year is recommended for further evaluation. Electronically signed by: Pascual Gan MD 02/17/2024 04:53 PM EDT Discharge Plan Discharge Anticipated Discharge Date/Time: 02/22/24 12:42 Patient Disposition: Home, Self-Care Discharge Diagnosis: Acute blood loss anemia from GI bleed Referrals: Physician,None [Primary Care Provider] - 1 Week Discharge Medications: New sucralfate 100 mg/mL Suspension 1 g PO QIDACHS 7 Days Qty: 300 1RF omeprazole 40 mg capsule,delayed release(DR/EC) 40 mg PO BID Qty: 180 0RF ferrous sulfate 325 mg (65 mg iron) tablet 325 mg PO DAILY Qty: 90 0RF Continued trazodone 50 mg Tablet 50 mg PO BEDTIME MRX1 PRN (Reason: Insomnia) Qty: 0 0RF quetiapine 25 mg Tablet 25 mg PO BID PRN (Reason: anxiety, agitation) Qty: 60 1RF quetiapine 200 mg Tablet 200 mg PO BEDTIME Qty: 30 1RF lithium carbonate 450 mg Tablet Extended Release 900 mg PO BEDTIME Qty: 60 0RF lamotrigine 25 mg Tablet 25 mg PO BEDTIME Qty: 30 0RF lorazepam 0.5 mg Tablet 0.5 mg PO BID 15 Days Qty: 30 0RF bupropion HCl 75 mg Tablet 75 mg PO DAILY Qty: 30 0RF hydroxyzine HCl 25 mg Tablet 25 mg PO Q6H PRN (Reason: Anxiety) Qty: 30 0RF risperidone 1 mg Tablet 1 mg PO BID@0900,1400 Qty: 60 1RF Discharge Orders: Discharge Order (Routine); Ordered 02/22/24 Ordered By: Joey Crouch Diet: Advance to usual diet Activity on Discharge: As tolerated Stand Alone Forms: Patient Portal Discharge page Print Language: Palestinian Other Ambulatory Orders: Complete Blood Count Auto Diff (Routine) Timeframe: 3 Days Facility: [facility] - Location: Laboratory Ordered By: Joey Crouch Care Plan Goals: Take Omeprazole twice daily Carafate for 1 week Iron supplement Health Concerns: Gastric ulcers Plan of Treatment: Acute psychosis treatment as prescribed To follow with psychiatry as outpatient Assessment: Read below
--- NOTE | 2024-02-22 14:39 | MHC.CM.PN ---
Patient has been medically cleared for dc to home today, self care. Per Patient's request, has set up a [facility] to pick Patient up at 4PM; MD & RN are aware. [facility] has Patient's cell # for communication purposes.
--- NOTE | 2024-02-22 14:44 | MHC.CARE ---
Patient has been seen by the CARE TEAM today and referred to [facility]. Referral completed via email and followup call will be made tomorrow to confirm that it was received.
== END 2024-02-22 15:40 | disposition home or self-care (01) | DRG 252 ==
PROVIDERS: Internal Medicine Gastroenterology; Student in an Organized Health Care Education/Training Program; Admitting Provider Internal Medicine; Visit Provider Student in an Organized Health Care Education/Training Program
PROC: 0DJ08ZZ Inspection of Upper Intestinal Tract, Via Natural or Artificial Opening Endoscopic (ICD-10-PCS; CPT 43235; principal; 2024-02-17 17:30)
DX: K95.89 Other complications of other bariatric procedure (principal); K28.4 Chronic or unspecified gastrojejunal ulcer with hemorrhage; D62 Acute posthemorrhagic anemia; F23 Brief psychotic disorder; F90.9 Attention-deficit hyperactivity disorder, unspecified type; Z79.899 Other long term (current) drug therapy
CPT/HCPCS: 36415; 74178; 80048; 85014; 85018; 85027; 86850; 86900; 86901; 86923; 88305; 88313; 88342; 92950; J2003; J2470; J2704; J2916; J7120; P9016; Q9967; S9485

== ENCOUNTER → 2024-02-17 13:48 | Outpatient (BNV) | payer OTHER, SELFPAY | PROVIDERS: Admitting Provider Internal Medicine; Visit Provider Psychiatry & Neurology Psychiatry | DX: F39 Unspecified mood [affective] disorder (principal); K62.5 Hemorrhage of anus and rectum; Z98.84 Bariatric surgery status | CPT/HCPCS: 99232 ==

== ENCOUNTER → 2024-02-17 13:48 | Outpatient (BNV) | payer OTHER, SELFPAY | PROVIDERS: Admitting Provider Internal Medicine; Visit Provider Internal Medicine Gastroenterology | DX: K28.4 Chronic or unspecified gastrojejunal ulcer with hemorrhage (principal); K92.2 Gastrointestinal hemorrhage, unspecified; Z98.84 Bariatric surgery status | CPT/HCPCS: 43239; 43255; 99222; 99232 ==

== ENCOUNTER 2024-02-26 08:07 | Outpatient (REF) | payer OTHER, SELFPAY ==
[2024-02-26 08:18] LABS: MANUAL DIFF FLAG NO
[2024-02-26 08:30] LABS: Basophils Percent Auto 0.2 % (0-2); Eosinophils Absolute Auto 0.1 X10*3/uL (0.0-0.4); Imm Gran Abs Auto 0.03 X10*3/uL (0.00-0.03); Imm Gran Pct Auto 0.5 % (0.0-0.4); Lymphocytes Absolute Auto 1.4 X10*3/uL (1.2-4.9); Lymphocytes Percent Auto 23.3 % (20-40); Mean Corpuscular HGB Conc 30.1 g/dl (31.0-36.0); Mean Corpuscular Hemoglobin 28.2 pg (27.0-33.0); Mean Corpuscular Volume 93.8 fL (80.0-98.0); Mean Platelet Volume 9.7 fL (9.4-12.4); Monocytes Absolute Auto 0.6 X10*3/uL (0.1-1.2); Monocytes Percent Auto 9.8 % (2-11); Neutrophils Percent Auto 65.2 % (45-73); Platelet Count 322 X10*3/uL (160-400); Red Blood Count 1.77 X10*6/uL (4.60-5.80); Red Cell Distribution Width 15.8 % (11.0-16.0); White Blood Count 6.1 X10*3/uL (4.8-10.8)
[2024-02-26 08:39] LABS: Hematocrit 16.6 % (42.0-52.0)
[2024-02-26 10:05] LABS: Mean Corpuscular HGB Conc 30.9 g/dl (31.0-36.0); Mean Corpuscular Hemoglobin 28.8 pg (27.0-33.0); Mean Corpuscular Volume 93.2 fL (80.0-98.0); Mean Platelet Volume 9.8 fL (9.4-12.4); Platelet Count 316 X10*3/uL (160-400); Red Blood Count 1.91 X10*6/uL (4.60-5.80); Red Cell Distribution Width 15.9 % (11.0-16.0); White Blood Count 6.3 X10*3/uL (4.8-10.8)
[2024-02-26 10:09] LABS: Hemoglobin 5.5 g/dl (14.0-18.0)
[2024-02-26 10:10] LABS: Hematocrit 17.8 % (42.0-52.0)
[2024-02-26 10:20] LABS: INTERNATIONAL NORM RATIO 0.9 (0.9-1.1)
[2024-02-26 11:17] LABS: Ferritin 36 ng/mL (20-250)
== END 2024-02-26 08:08 | disposition home or self-care (01) ==
LOC: HO.LAB 08:07
PROVIDERS: Absent Provider Internal Medicine Gastroenterology; Visit Provider Student in an Organized Health Care Education/Training Program
DX: D62 Acute posthemorrhagic anemia (principal); D50.0 Iron deficiency anemia secondary to blood loss (chronic)
CPT/HCPCS: 36415; 82728; 85025; 85027; 85610

== ENCOUNTER 2024-02-26 10:55 | Inpatient (IN) | payer OTHER, SELFPAY ==
[2024-02-26] VITALS (17 sets, daily range): BP systolic 97–126; BP diastolic 50–81; PULSE 72–101; RESP 14–20; TEMP 36.2–36.9; O2SAT 96–100; BMI 31.3
--- NOTE | 2024-02-26 11:20 | ED_ITS ---
HPI - GI Bleed General Chief complaint: GI Bleed Stated complaint: transfusion Time Seen by Provider: 02/26/24 11:25 Source: patient, family and old records reviewed Mode of arrival: ambulatory Limitations: no limitations History of Present Illness ED Provider: TANYA HEARD Narrative: 29 yo male with PMH of ADHD, mood disorder, s/p gastric bypass - just admitted for psychiatric decompensation and had GIB while inpatient - found to have ABLA s/p 2 UPRBC GD on 02/16 showing anastomotic ulcers with bleeding vessels s/p cauterization. He was discharged on PPI and carafate. He comes back after outpatient GI follow up visit. Notes 2 to 3 episodes of black stool a day. No abdominal pain, no hematemesis. He is not on ASA or NSAIDs. He is taking his medications. He feels tired and has some EAST. Sent by Dr. Barakat for transfusion and admission. MD complaint: melena Onset (ago): day(s) (7) Severity: mild Relieving factors: none Exacerbating factors: none Context: history of GI bleed Associated symptoms: weakness Treatments Prior to Arrival: none Related Data Previous Rx's ?Medication ?Instructions ?Recorded trazodone 50 mg tablet 50 mg PO BEDTIME MRX1 PRN Insomnia 02/17/24 #0 tabs bupropion HCl 75 mg tablet 75 mg PO DAILY #30 tabs 02/22/24 ferrous sulfate 325 mg (65 mg 325 mg PO DAILY #90 tabs 02/22/24 iron) tablet hydroxyzine HCl 25 mg tablet 25 mg PO Q6H PRN Anxiety #30 tabs 02/22/24 lamotrigine 25 mg tablet 25 mg PO BEDTIME #30 tabs 02/22/24 lithium carbonate 450 mg 900 mg (2 x 450 mg) PO BEDTIME #60 02/22/24 tablet,extended release tabs lorazepam 0.5 mg tablet 0.5 mg PO BID 15 days #30 tabs 02/22/24 omeprazole 40 mg capsule,delayed 40 mg PO BID #180 caps 02/22/24 release quetiapine 200 mg tablet 200 mg PO BEDTIME #30 tabs 02/22/24 quetiapine 25 mg tablet 25 mg PO BID PRN anxiety, 02/22/24 agitation #60 tabs risperidone 1 mg tablet 1 mg PO BID@0900,1400 #60 tabs 02/22/24 sucralfate 100 mg/mL oral 1 g (10 mL) PO QIDACHS 7 days #300 02/22/24 suspension mL Allergies Allergy/AdvReac Type Severity Reaction Status Date / Time No Known Allergies Allergy Verified 02/26/24 11:21 Review of Systems Review of Systems: Constitutional : No Fever, No Chills, pos Fatigue ENT/Mouth : No sore throat, No Rhinorrhea Eyes: No Eye Pain, No Swelling, No Redness Cardiovascular : No Chest Pain, No SOB, pos Dyspnea on Exertion Respiratory : No Cough, No Sputum Gastrointestinal : No Nausea, No Vomiting, No Diarrhea, No abdominal Pain, pos melena Genitourinary : No Dysuria, No Urinary Frequency, No Hematuria, Musculoskeletal : No joint pain, No Myalgias, No Joint Swelling Skin : No Skin Lesions, No rash Neuro : No Weakness, No Numbness, No Dizziness, no Headache Psych : No Anxiety/Panic, No Depression All other systems reviewed and are negative [facility] Past Medical History Attestation statement: The following information was validated with the patient. Source: old records reviewed Medical History Mood disorder Medical clearance for psychiatric admission Lower gastrointestinal bleed Bright red blood per rectum ADHD Sleep apnea Asthma Morbid obesity due to excess calories Surgical History History of Malcolm-en-Y gastric bypass No significant past surgical history Family History Family History Mother No problems noted. Father Sleep apnea Sister No problems noted. Brother Hypertension Son No problems noted. Daughter Eczema Social History Social History Household Members: Spouse and Family Housing: House Are you a primary physician primary care sports medicine to a significant other at home: No Do you presently have visiting nurse or other home services: No Alcohol intake: current Alcohol intake frequency: holidays/special occasions only Patient Tobacco Use Status: Former Tobacco user Cigarettes Per Day: 2 Substance Use Type: Marijuana service: No Sexual orientation: Straight/Heterosexual Physical Exam Vital Signs: Vital Signs: Last Vital Signs Temp 97.4 F 02/26/24 11:19 Pulse 101 H 02/26/24 11:19 Resp 18 02/26/24 11:19 BP 113/65 02/26/24 11:19 Pulse Ox 100 02/26/24 11:19 O2 Del Method Room Air 02/26/24 11:19 BMI result Body Mass Index 31.3 Appearance: Alert. Oriented X3. No acute distress. Eyes: Pupils equal, round and reactive to light. ENT: Pharynx normal. Neck: Normal inspection. Neck supple. CVS: Normal heart rate and rhythm. Pulses normal. Respiratory: No respiratory distress. Breath sounds normal. Abdomen: Soft and nontender. Skin: Skin warm and dry. pale skin color. Normal skin turgor. Extremities: No lower extremity edema. No calf ttp Neuro: Oriented X 3. No motor deficit. No sensory deficit. Course Course Course Narrative: This is a Rapid Medical Examination (RME) performed by Debra Acevedo PA-C in triage. Full HPI, ROS, assessment and treatment plan per primary provider in the Main ED. 29 yo male with history of bariatric surgery in the past, recent admission here for UGIB due to ulceration at the pouch s/p EGD x2 and 2 units pPRBC discharged 02/21 with H/H 7.7/24.3 sent back in by Dr. Barakat for ongoing anemia H/H 5.5/17.8. has been having 3 formed melanotic stools daily, no abdominal pain or hematemesis. Plan: pRBC , IV PPI, and admission Medical Decision Making Medical Decision Making [facility] Narrative: 29 yo male with PMH of ADHD, mood disorder, s/p gastric bypass with bleeding vessel and ulcers at anastomosis site on EGD 02/16 resulting in ABLA requiring blood transfusion. He is now having melena as outpatient on PPI and carafate. Denies NSAID use. He will receive IV protonix, 2UPRBC, GI already aware that is who sent him in and will be admitted for further work up. Differential Diagnosis Differential Diagnoses: The differential diagnosis associated with the presentation includes UGIB, anemia Admission/Observation Consideration of admission/observation: Escalation of care including admission/observation considered admit for further workup of ABLA Consult Healthcare Provider Management of the patient was discussed with: Hospitalist (will admit) and Senior Oracle Database Administrator (Dr. Barakat aware sent from clinic - admit) Lab Data [facility] Lab Attestation statement: I reviewed the patient's lab results. Independent Historian Clinical information obtained from an independent historian. History obtained from or confirmed by: Spouse External Record Review External record reviewed: Inpatient record Critical Care Time Critical Care Time Critical Care Time: Yes Total Critical Care Time: 45 Attestation: repeat CBC, transfusion of 2 units PRBC, review of record, oncology consultant, admission I attest to this time spent taking care of the patient Discharge Plan Discharge Clinical Impression: Acute upper GI bleed, ABLA (acute blood loss anemia) Patient Disposition: Admitted As Inpatient Prescriptions: No Action trazodone 50 mg Tablet 50 mg PO BEDTIME MRX1 PRN (Reason: Insomnia) Qty: 0 0RF sucralfate 100 mg/mL Suspension 1 g PO QIDACHS 7 Days Qty: 300 1RF omeprazole 40 mg capsule,delayed release(DR/EC) 40 mg PO BID Qty: 180 0RF ferrous sulfate 325 mg (65 mg iron) tablet 325 mg PO DAILY Qty: 90 0RF quetiapine 25 mg Tablet 25 mg PO BID PRN (Reason: anxiety, agitation) Qty: 60 1RF quetiapine 200 mg Tablet 200 mg PO BEDTIME Qty: 30 1RF lithium carbonate 450 mg Tablet Extended Release 900 mg PO BEDTIME Qty: 60 0RF lamotrigine 25 mg Tablet 25 mg PO BEDTIME Qty: 30 0RF lorazepam 0.5 mg Tablet 0.5 mg PO BID 15 Days Qty: 30 0RF bupropion HCl 75 mg Tablet 75 mg PO DAILY Qty: 30 0RF hydroxyzine HCl 25 mg Tablet 25 mg PO Q6H PRN (Reason: Anxiety) Qty: 30 0RF risperidone 1 mg Tablet 1 mg PO BID@0900,1400 Qty: 60 1RF Print Language: Korean
[2024-02-26 12:17] LABS: MANUAL DIFF FLAG NO
[2024-02-26 12:20] LABS: Basophils Percent Auto 0.2 % (0-2); Eosinophils Absolute Auto 0.1 X10*3/uL (0.0-0.4); Eosinophils Percent Auto 1.1 % (0-4); Imm Gran Abs Auto 0.02 X10*3/uL (0.00-0.03); Imm Gran Pct Auto 0.3 % (0.0-0.4); Lymphocytes Absolute Auto 1.4 X10*3/uL (1.2-4.9); Lymphocytes Percent Auto 22.7 % (20-40); Mean Corpuscular HGB Conc 30.2 g/dl (31.0-36.0); Mean Corpuscular Hemoglobin 28.1 pg (27.0-33.0); Mean Corpuscular Volume 93.2 fL (80.0-98.0); Mean Platelet Volume 9.6 fL (9.4-12.4); Monocytes Absolute Auto 0.5 X10*3/uL (0.1-1.2); Monocytes Percent Auto 8.3 % (2-11); Neutrophils Absolute Auto 4.3 x10*3/uL (2.0-8.3); Neutrophils Percent Auto 67.4 % (45-73); Platelet Count 352 X10*3/uL (160-400); Red Blood Count 1.92 X10*6/uL (4.60-5.80); Red Cell Distribution Width 15.8 % (11.0-16.0); White Blood Count 6.3 X10*3/uL (4.8-10.8)
[2024-02-26 12:22] LABS: Appearance Urine Clear; Color Urine Dark Yellow; Glucose Urine UA Negative (Negative); Hematocrit 17.9 % (42.0-52.0); Hemoglobin 5.4 g/dl (14.0-18.0); Leukocyte Esterase Urine Negative (Negative); Nitrite Urine Negative (Negative); Urine Blood Negative (Negative); Urine Ketones Negative (Negative); Urine Protein Negative (Neg-Trace)
[2024-02-26] MEDS: Pantoprazole Sodium 40 MG/10 ML VIAL IVPUSH (12:27)
[2024-02-26 12:35] LABS: Alanine Aminotransferase 17 U/L (0-40); Albumin Level 3.5 g/dL (3.5-5.0); Alkaline Phosphatase 65 U/L (39-117); Aspartate Amino Transferase 16 U/L (5-37); Bilirubin Direct < 0.2 mg/dL (0.0-0.5); Bilirubin Total 0.1 mg/dL (0.0-1.0); Magnesium 2.3 mg/dL (1.6-2.6); Total Protein 5.8 g/dL (6.5-8.0)
--- NOTE | 2024-02-26 12:39 | PC.NURSE ---
patient reports left forearm swelling and redness from previous admission and IV site. site marked. aware.
--- NOTE | 2024-02-26 13:35 | P.HPHOSP_ITS ---
History of Present Illness Date of Service: 02/26/24 Attending physician on admission: Joey Crouch Chief Complaint: ABLA, melena, UGIB 29 yo male with a pmhx significant for ADHD, mood d/o, hx morbid obesity s/p Malcolm-en-Y gastric bypass, recently admitted on 02/16 for several episodes of BRBPR and decreasing H+H s/p EGD with cauterization on 02/16 and given 1 U PRBC. Hgb dropped again to 7.5 and repeat EGD 02/20 showed oozing ulceration. He was dc'd home with omeprzole BID, carafate x1 week, and PO iron. At f/u GI appt this AM he was found to have decreasing hgb again at 5.0, and was sent to ED for transfusion and admission for another EGD. He reports melena for the past week, no SOB, EAST, tachycardia, nausea, vomiting, or abd pain. Pt reports he is asx and feels great. Review of Systems 2 Constitutional: Constitutional: Denies chills, Denies fatigue, Denies fever(s) and Denies headache(s) Eyes: Eyes: Denies blurry vision and Denies change in vision ENT: Denies headache(s), Denies nasal congestion, Denies nasal discharge and Denies sore throat Cardiovascular: Cardiovascular: Denies chest pain, Denies lightheadedness and Denies dyspnea Respiratory: Respiratory: Denies chest congestion, Denies cough and Denies dyspnea Gastrointestinal: Gastrointestinal: Reports as per HPI Genitourinary: Genitourinary: Denies dysuria Musculoskeletal: Musculoskeletal: Denies myalgias Integumentary/Breasts: Skin/Breast: Denies rash Neurologic: Denies confusion and Denies headache(s) Psychiatric: Psychiatric: Denies confusion Endocrine: Endocrine: Denies fatigue [facility] Medical History (Updated 02/26/24 @ 11:54 by Taniya Mcmahon DO) Lower gastrointestinal bleed Bright red blood per rectum Mood disorder Medical clearance for psychiatric admission ADHD Sleep apnea Asthma Morbid obesity due to excess calories Family History Mother No problems noted. Father Sleep apnea Sister No problems noted. Brother Hypertension Son No problems noted. Daughter Eczema Surgical History (Updated 02/26/24 @ 14:41 by Hillary Cordova RN) History of Malcolm-en-Y gastric bypass Social History Household Members: Spouse and Family Housing: House Are you a primary healthcare marketer to a significant other at home: No Do you presently have visiting nurse or other home services: No Alcohol intake: current Alcohol intake frequency: holidays/special occasions only Patient Tobacco Use Status: Former Tobacco user Cigarettes Per Day: 2 Smoked in Last 30 Days: No Use of substances other than those prescribed or required for medical reasons: Yes Substance Use Type: Marijuana Substance Use Frequency: Monthly Advance Directives: Yes Advance Directives on File: Yes Advance Directives Date on File: 02/23/24 Do you have a plan to hurt others: No Plan service: No Sexual orientation: Straight/Heterosexual Meds Allergies Allergy/AdvReac Type Severity Reaction Status Date / Time No Known Allergies Allergy Verified 02/26/24 11:21 Active Medications: Current Medications Acetaminophen (Acetaminophen 325 Mg Tablet) 650 mg PO Q6H PRN PRN Reason: Pain, Mild (Pain Scale 1-3), fever or headache Calcium Carbonate (Calcium Carbonate 750 Mg Tab.Chew) 750 mg PO Q4H PRN PRN Reason: Heartburn Lactated Ringer's (Lr) 1,000 mls @ 80 mls/hr IVCONT .[id number] EBER Pantoprazole Sodium 80 mg/ (Sodium Chloride) 100 mls @ 10 mls/hr IV .Q10H EBER Magnesium Hydroxide (Milk Of Magnesia 30 Ml Oral.Susp) 30 ml PO DAILY PRN PRN Reason: Constipation Melatonin (Melatonin 3 Mg Tablet) 6 mg PO BEDTIME PRN PRN Reason: Insomnia Sodium Chloride (0.9 % Sodium Chloride Flush 3 Ml Syringe) 3 ml IVFLUSH QSHIFT EBER Home Medications ?Medication ?Instructions ?Recorded ?Confirmed ?Last Taken ?Type bupropion HCl 75 mg tablet 75 mg PO DAILY@0600 02/26/24 02/26/24 02/25/24 History ferrous sulfate 325 mg (65 mg 325 mg PO DAILY@0600 02/26/24 02/26/24 02/25/24 History iron) tablet lamotrigine 25 mg tablet 25 mg PO BEDTIME@2200 02/26/24 02/26/24 02/25/24 History lithium carbonate 450 mg 900 mg PO BEDTIME@2200 02/26/24 02/26/24 02/25/24 History tablet,extended release lorazepam 0.5 mg tablet 1 mg PO BEDTIME@2200 02/26/24 02/26/24 02/25/24 History omeprazole 40 mg capsule,delayed 40 mg PO BID@0600,2200 02/26/24 02/26/24 02/25/24 History release quetiapine 200 mg tablet 200 mg PO BEDTIME@2200 02/26/24 02/26/24 02/25/24 History quetiapine 25 mg tablet 25 mg PO DAILY@0600 anxiety, 02/26/24 02/26/24 02/25/24 History agitation risperidone 1 mg tablet 1 mg PO BID@0600,2200 02/26/24 02/26/24 02/25/24 History sucralfate 100 mg/mL oral 1 g PO QIDACHS 02/26/24 02/26/24 02/25/24 History suspension Physical Exam 2 Vital Signs and Narrative: Vital Signs: Last Vital Signs Temp 98.1 F 02/26/24 13:24 Pulse 89 02/26/24 13:24 Resp 16 02/26/24 13:24 BP 124/73 02/26/24 13:24 Pulse Ox 100 02/26/24 12:36 O2 Del Method Room Air 02/26/24 12:36 BMI result Body Mass Index 31.3 General: AOx3, no acute distress, pt standing bedside Resp: CTA bilaterally CVS: S1, S2, RRR GI: +BS, NT, no distention Skin: Warm, dry Extremities: No edema Psych: Appropriate affect Const: General: No confusion Orientation/consciousness: No confusion Neuro: General: No confusion Results Labs 02/26/24 12:10 Labs: Laboratory Results - last 24 hr 02/26/24 12:10 MCV 93.2 MCH 28.1 MCHC 30.2 L RDW 15.8 Plt Count 352 MPV 9.6 Immature Gran % (Auto) 0.3 Neut % (Auto) 67.4 Lymph % (Auto) 22.7 [place] % (Auto) 8.3 Eos % (Auto) 1.1 Baso % (Auto) 0.2 Lymph # (Auto) 1.4 [place] # (Auto) 0.5 Eos # (Auto) 0.1 Baso # (Auto) 0.0 Abs Immat Gran (auto) 0.02 Absolute Neuts (auto) 4.3 Absolute Nucleated RBC 0.000 Nucleated RBC % (auto) 0.0 Magnesium 2.3 Total Bilirubin 0.1 Direct Bilirubin < 0.2 AST 16 ALT 17 Alkaline Phosphatase 65 Total Protein 5.8 L Albumin 3.5 Urine Color Dark Yellow Urine Appearance Clear Urine pH 7.0 Ur Specific [place] 1.020 Urine Protein Negative Urine Glucose (UA) Negative Urine Ketones Negative Urine Blood Negative Urine Nitrite Negative Ur Leukocyte Esterase Negative Blood Type B Positive Antibody Screen NEGATIVE Crossmatch See Detail Assessment and Plan (1) ABLA (acute blood loss anemia): Status: Acute (2) Acute upper GI bleed: Status: Acute Plan 29 yo male with a pmhx significant for ADHD, mood d/o, hx morbid obesity s/p Malcolm-en-Y gastric bypass, recently admitted on 02/16 for several episodes of BRBPR and decreasing H+H s/p EGD with cauterization on 02/16 and given 1 U PRBC. Hgb dropped again to 7.5 and repeat EGD 02/20 showed oozing ulceration. He was dc'd home with omeprzole BID, carafate x1 week, and PO iron. At f/u GI appt this AM he was found to have decreasing hgb again at 5.0, and was sent to ED for transfusion and admission for another EGD. ABLA, melena, UGIB - 2 U PRBC ordered in ED, receiving now - check CBC later today post transfusion then Q8H - NPO, EGD today per GI - pantoprazole drip - LR 80ml/hr mood d/o, adhd - continue bupropion, hydroxyzine, lamotrigine, lithium, lorazepam, quetiapine, risperidone and trazodone full code VTE prohpy: mechanical Pt with severe ABLA, melena, UGIB, receiving PRBC, failed outpt management with PPI, carafate and iron. will need admission to telemetry to monitor post transfusion and to assure stability of H+H for a minimum of 2 midnights stay. Quality Stroke Does the patient have a stroke diagnosis?: No VTE Prior VTE?: No VTE Risk Level:: Medical - moderate - high VTE Device Contraindication: N/A - Device Ordered VTE Drug Contraindication: Treatment Not Indicated
--- NOTE | 2024-02-26 13:37 | P.CNGI_ITS ---
History of Present Illness Data of Consult Service Date: 02/26/24 Requesting physician: aTniya Mcmahon Primary Care Provider: None Physician HPI Reason for consult: GI bleeding, anemia 29-year-old male with ADHD, hx Malcolm-en-Y, anxiety, and depression?came to [facility] ED after labs showed recurrent anemia. Pt was hospitalized at [facility] psychiatry unit on 02/08/24 for dysregulated behavior at home. He was transferred to the medical floor on 02/17/24 due to GI bleeding EGD showed scattered clots in the stomach and a large 2 cms anastomotic ulcer with a visible vessel in the proximal jejunum which was cauterized. Pt had a repeat EGD for recurrent bleeding on 02/21/24 which showed a small ulcer at the distal part of the pouch with oozing noted. x2 clips applied with hemospray, bleeding then ceased He was discharged home on 02/22/24. FU labs today showed recurrent anemia with H & H of 5 & 16.6 and pt advised to return to the ER for readmission and a blood transfusion Pt denies abdominal pain, nausea, vomiting or hematemsis. He reports having 3 soft to loose BMs yesterday which were dark in color Last BM was today at 4-5 am (dark in color) and no BMs since then Pt stated he feels great, taking iron pills and Omeprazole in apple sauce. He is taking iron once a day. Has had a little bit of tarry stools and stools are normalizing little by little Denies feeling lightheaded or dizzy. Went to the Gym yesterday Review of Systems 2 Review of Systems: Constitutional : No Fever, No Chills, pos Fatigue ENT/Mouth : No sore throat, No Rhinorrhea Eyes: No Eye Pain, No Swelling, No Redness Cardiovascular : No Chest Pain, No SOB, pos Dyspnea on Exertion Respiratory : No Cough, No Sputum Gastrointestinal : No Nausea, No Vomiting, No Diarrhea, No abdominal Pain, pos melena Genitourinary : No Dysuria, No Urinary Frequency, No Hematuria, Musculoskeletal : No joint pain, No Myalgias, No Joint Swelling Skin : No Skin Lesions, No rash Neuro : No Weakness, No Numbness, No Dizziness, no Headache Psych : No Anxiety/Panic, No Depression All other systems reviewed and are negative PMFSH Past Medical History Medical History Lower gastrointestinal bleed Bright red blood per rectum Mood disorder Medical clearance for psychiatric admission ADHD Sleep apnea Asthma Morbid obesity due to excess calories Family History Family History Mother No problems noted. Father Sleep apnea Sister No problems noted. Brother Hypertension Son No problems noted. Daughter Eczema Surgical History Surgical History (Updated 02/26/24 @ 17:11 by Hillary Cordova RN) H/O endoscopy History of Malcolm-en-Y gastric bypass Social History Social History Household Members: Spouse and Family Housing: House Are you a primary home care manager rn to a significant other at home: No Do you presently have visiting nurse or other home services: No Alcohol intake: current Alcohol intake frequency: does not drink Patient Tobacco Use Status: Former Tobacco user Tobacco use type: Cigarette Cigarettes Per Day: 2 Years Smoked: 4 Smoked in Last 30 Days: No Use of substances other than those prescribed or required for medical reasons: No Substance Use Type: Marijuana Substance Use Frequency: Monthly Have you been hit, kicked, punched, or otherwise hurt by someone within the past year? If so, by whom?: No Are you DNR?: No Advance Directives: Yes Advance Directives on File: Yes Advance Directives Date on File: 02/23/24 Do you have a plan to hurt others: No Plan Recently lost weight without trying: No How much weight loss: Not applicable Eating poorly because of decreased appetite: No Nutrition screen score: 0 Nutrition Risks: No Nutritional Risk Poor oral hygiene: No service: No Sexual orientation: Straight/Heterosexual Meds Allergies Allergy/AdvReac Type Severity Reaction Status Date / Time No Known Allergies Allergy Verified 02/26/24 17:11 Active Medications: Current Medications Acetaminophen (Acetaminophen 325 Mg Tablet) 650 mg PO Q6H PRN PRN Reason: Pain, Mild (Pain Scale 1-3), fever or headache Calcium Carbonate (Calcium Carbonate 750 Mg Tab.Chew) 750 mg PO Q4H PRN PRN Reason: Heartburn Lactated Ringer's (Lr) 1,000 mls @ 80 mls/hr IVCONT .[id number] EBER Pantoprazole Sodium 80 mg/ (Sodium Chloride) 100 mls @ 10 mls/hr IV .Q10H EBER Magnesium Hydroxide (Milk Of Magnesia 30 Ml Oral.Susp) 30 ml PO DAILY PRN PRN Reason: Constipation Melatonin (Melatonin 3 Mg Tablet) 6 mg PO BEDTIME PRN PRN Reason: Insomnia Sodium Chloride (0.9 % Sodium Chloride Flush 3 Ml Syringe) 3 ml IVFLUSH QSHIFT EBER Home Medications ?Medication ?Instructions ?Recorded ?Confirmed ?Last Taken ?Type bupropion HCl 75 mg tablet 75 mg PO DAILY@0600 02/26/24 02/26/24 02/25/24 History ferrous sulfate 325 mg (65 mg 325 mg PO DAILY@0600 02/26/24 02/26/24 02/25/24 History iron) tablet lamotrigine 25 mg tablet 25 mg PO BEDTIME@2200 02/26/24 02/26/24 02/25/24 History lithium carbonate 450 mg 900 mg PO BEDTIME@2200 02/26/24 02/26/24 02/25/24 History tablet,extended release lorazepam 0.5 mg tablet 1 mg PO BEDTIME@2200 02/26/24 02/26/24 02/25/24 History omeprazole 40 mg capsule,delayed 40 mg PO BID@0600,2200 02/26/24 02/26/24 02/25/24 History release quetiapine 200 mg tablet 200 mg PO BEDTIME@2200 02/26/24 02/26/24 02/25/24 History quetiapine 25 mg tablet 25 mg PO DAILY@0600 anxiety, 02/26/24 02/26/24 02/25/24 History agitation risperidone 1 mg tablet 1 mg PO BID@0600,2200 02/26/24 02/26/24 02/25/24 History sucralfate 100 mg/mL oral 1 g PO QIDACHS 02/26/24 02/26/24 02/25/24 History suspension Physical Exam 2 Vital Signs: Vital Signs: Last Vital Signs Temp 98.1 F 02/26/24 13:24 Pulse 89 02/26/24 13:24 Resp 16 02/26/24 13:24 BP 124/73 02/26/24 13:24 Pulse Ox 100 02/26/24 12:36 O2 Del Method Room Air 02/26/24 12:36 BMI result Body Mass Index 31.3 Appearance: Alert. Oriented X3. No acute distress. Eyes: Pupils equal, round and reactive to light. ENT: Pharynx normal. Neck: Normal inspection. Neck supple. CVS: Normal heart rate and rhythm. Pulses normal. Respiratory: No respiratory distress. Breath sounds normal. Abdomen: Soft and nontender. Skin: Skin warm and dry. pale skin color. Normal skin turgor. Extremities: No lower extremity edema. No calf ttp Neuro: Oriented X 3. No motor deficit. No sensory deficit. Results Labs 02/26/24 17:35 Labs: Short CBC 02/26/24 Range/Units 12:10 WBC 6.3 (4.8-10.8) X10*3/uL Hgb 5.4 L* (14.0-18.0) g/dl Hct 17.9 L* (42.0-52.0) % Plt Count 352 (160-400) X10*3/uL Liver Function 02/26/24 Range/Units 12:10 Total Bilirubin 0.1 (0.0-1.0) mg/dL Direct Bilirubin < 0.2 (0.0-0.5) mg/dL AST 16 (5-37) U/L ALT 17 (0-40) U/L Alkaline Phosphatase 65 (39-117) U/L Albumin 3.5 (3.5-5.0) g/dL Urine 02/26/24 Range/Units 12:10 Urine Color Dark Yellow Urine Appearance Clear Urine pH 7.0 (5.0-9.0) Ur Specific [place] 1.020 (1.005-1.025) Urine Protein Negative (Neg-Trace) mg/dL Urine Glucose (UA) Negative (Negative) mg/dL Assessment and Plan (1) Acute upper GI bleed: Status: Acute (2) ABLA (acute blood loss anemia): Status: Acute (3) Anastomotic ulcer: Status: Acute Plan 29-year-old male with ADHD, hx Malcolm-en-Y, anxiety, and depression?came to [facility] ED after labs showed recurrent anemia due to recurrent UGI bleeding. Pt was hospitalized at [facility] psychiatry unit on 02/08/24 for dysregulated behavior at home. He was transferred to the medical floor on 02/17/24 due to GI bleeding EGD showed scattered clots in the stomach and a large 2 cms anastomotic ulcer with a visible vessel in the proximal jejunum which was cauterized. Pt had a repeat EGD for recurrent bleeding on 02/21/24 which showed a small ulcer at the distal part of the pouch with oozing noted. x2 clips applied with hemospray, bleeding then ceased He was discharged home on 02/22/24. FU labs today showed recurrent anemia with H & H of 5 & 16.6 and pt advised to return to the ER for readmission and a blood transfusion Recurrent anemia likely from anastomotic ulcer RECOMMENDATIONS: 1. Check CBC every 8 hrs x 24 hrs after transfusion of 2 U PRBC 2. IV PPI infusion 3. Pt scheduled for urgent EGD today 4. IV erythromycin to facilitate gastric emptying (pt states he had breakfast after he had the first set of labs drawn this am at 8:17 am) Procedures Date of Service Date of Service: 02/26/24
--- NOTE | 2024-02-26 13:54 | PC.NURSE ---
Patient tolerating first unit RBC well no complaints at this time. pt alert and oriented and denies any pain or discomfort to IV site. c/d/i. Will continue to monitor.
--- NOTE | 2024-02-26 14:44 | PHA.MEDREC ---
Addendum entered by Danay Raymundo RPh 02/26/24 15:29: med rec reviewed by annie Original Note: Pharmacy Consult ? Medication Reconciliation Pharmacy has completed the medication reconciliation. Confirmed medications with patient and list of medications on health minh on phone. He confirmed hes taking Trazodone 50mg and filled it at our Out Patient Pharm[facility], looking in his profile we have no claims for that medication and I called [facility] pharmacy and they state they have no history of Trazodone 50mg in their system. I next called [facility] on [facility] in [place], and they state they have nothing either and state they are able to see other pharmacies and nothing has been filled for Trazodone 50mg at any of their facilities. I called Sal in [place] in [place] and they have no claims or history of it. Lastly I called Prisca in [facility] and they did not see any past history for Trazodone 50mg at any of their facilities, I took off Trazodone 50mg on the med rec and will message provider the update. He stated he takes his medications strictly every day at @0600 for morning medications and 2200 for his night time medications and he states he took all his medications yesterday morning but was not able to take his night dose due to not feeling well.
[2024-02-26] MEDS: Pantoprazole Sodium 80 MG in 0.9 % Sodium Chloride 80 ML 10 MG IV (15:46)
[2024-02-26] MEDS: Erythromycin Lactobionate 250 MG in 0.9 % Sodium Chloride 100 ML 100 MG IV (16:01)
[2024-02-26] MEDS: 0.9 % Sodium Chloride Flush 3 ML SYRINGE IVFLUSH (16:23)
[2024-02-26] MEDS: Sucralfate Oral Suspension 1 GM/10 ML ORAL.SUSP PO ×2 (16:30→21:17)
--- NOTE | 2024-02-26 17:00 | PC.NURSE ---
patient alert oriented and tolerating second unit RBC well and w/o complications. Daystay sheet metal technician at bedside to transport patient to procedure with GI team. IV patent and intact. RBC infusing and Protonix gtt.
--- NOTE | 2024-02-26 17:08 | HO.ANESPROP2 ---
HPI - Anesthesia Eval Consult details Narrative: for upper endo PMFSH Active Problems Active Problems: All Active Problems ABLA (acute blood loss anemia) (Acute) Acute upper GI bleed (Acute) Iron deficiency anemia due to chronic blood loss (Acute) Anastomotic ulcer (Acute) Gastric ulcer (Acute) BMI 45.0-49.9, adult (Acute) History of smoking (Acute) Mild depression (Acute) Morbid obesity with BMI of 45.0-49.9, adult (Acute) Vitamin D deficiency (Acute) BMI 50.0-59.9, adult (Acute) Shortness of breath (Acute) Preoperative examination (Acute) Morbid obesity due to excess calories (Acute) Past Medical History Medical History Lower gastrointestinal bleed Bright red blood per rectum Mood disorder Medical clearance for psychiatric admission ADHD Sleep apnea Asthma Morbid obesity due to excess calories Family History Family History Mother No problems noted. Father Sleep apnea Sister No problems noted. Brother Hypertension Son No problems noted. Daughter Eczema Family history of problems with anesthesia: No Surgical History Surgical History History of Malcolm-en-Y gastric bypass History of Problems with Anesthesia: No Social History Social History Household Members: Spouse and Family Housing: House Are you a primary student career development specialist to a significant other at home: No Do you presently have visiting nurse or other home services: No Alcohol intake: current Alcohol intake frequency: holidays/special occasions only Patient Tobacco Use Status: Former Tobacco user Cigarettes Per Day: 2 Smoked in Last 30 Days: No Use of substances other than those prescribed or required for medical reasons: Yes Substance Use Type: Marijuana Substance Use Frequency: Monthly Advance Directives: Yes Advance Directives on File: Yes Advance Directives Date on File: 02/23/24 Do you have a plan to hurt others: No Plan service: No Sexual orientation: Straight/Heterosexual Meds Allergies Allergy/AdvReac Type Severity Reaction Status Date / Time No Known Allergies Allergy Verified 02/26/24 11:21 Active Medications: Current Medications Acetaminophen (Acetaminophen 325 Mg Tablet) 650 mg PO Q6H PRN PRN Reason: Pain, Mild (Pain Scale 1-3), fever or headache Bupropion HCl (Bupropion Hcl 75 Mg Tablet) 75 mg PO DAILY@0600 [facility] Calcium Carbonate (Calcium Carbonate 750 Mg Tab.Chew) 750 mg PO Q4H PRN PRN Reason: Heartburn Ferrous Sulfate (Ferrous Sulfate 324 Mg Tablet.Dr) 324 mg PO DAILY@0600 [facility] Hydroxyzine HCl (Hydroxyzine Hcl 25 Mg Tablet) 25 mg PO Q6H PRN PRN Reason: Anxiety Lactated Ringer's (Lr) 1,000 mls @ 80 mls/hr IVCONT .[id number] [facility] Pantoprazole Sodium 80 mg/ (Sodium Chloride) 100 mls @ 10 mls/hr IV .Q10H [facility] Last Admin: 02/26/24 15:46 Dose: 8 mg/hr, 10 mls/hr Lamotrigine (Lamotrigine 25 Mg Tablet) 25 mg PO BEDTIME@2200 [facility] [place] Carbonate ([place] Carbonate Er 450 Mg Tablet.Er) 900 mg PO BEDTIME@2200 [facility] Lorazepam (Lorazepam 1 Mg Tablet) 1 mg PO BEDTIME@2200 [facility] Magnesium Hydroxide (Milk Of Magnesia 30 Ml Oral.Susp) 30 ml PO DAILY PRN PRN Reason: Constipation Melatonin (Melatonin 3 Mg Tablet) 6 mg PO BEDTIME PRN PRN Reason: Insomnia Quetiapine Fumarate (Quetiapine Fumarate 25 Mg Tablet) 25 mg PO DAILY@0600 [facility] Quetiapine Fumarate (Quetiapine Fumarate 200 Mg Tablet) 200 mg PO BEDTIME@2200 [facility] Risperidone (Risperidone 1 Mg Tablet) 1 mg PO BID@0600,2200 [facility] Sodium Chloride (0.9 % Sodium Chloride Flush 3 Ml Syringe) 3 ml IVFLUSH QSHIFT [facility] Last Admin: 02/26/24 16:23 Dose: 3 ml Sucralfate (Sucralfate Oral Suspension 1 Gm/10 Ml Oral.Susp) 1 gm PO QIDACHS [facility] Home Medications ?Medication ?Instructions ?Recorded ?Confirmed ?Last Taken ?Type bupropion HCl 75 mg tablet 75 mg PO DAILY@0600 02/26/24 02/26/24 02/25/24 History ferrous sulfate 325 mg (65 mg 325 mg PO DAILY@0600 02/26/24 02/26/24 02/25/24 History iron) tablet lamotrigine 25 mg tablet 25 mg PO BEDTIME@2200 02/26/24 02/26/24 02/25/24 History lithium carbonate 450 mg 900 mg PO BEDTIME@2200 02/26/24 02/26/24 02/25/24 History tablet,extended release lorazepam 0.5 mg tablet 1 mg PO BEDTIME@2200 02/26/24 02/26/24 02/25/24 History omeprazole 40 mg capsule,delayed 40 mg PO BID@0600,2200 02/26/24 02/26/24 02/25/24 History release quetiapine 200 mg tablet 200 mg PO BEDTIME@2200 02/26/24 02/26/24 02/25/24 History quetiapine 25 mg tablet 25 mg PO DAILY@0600 anxiety, 02/26/24 02/26/24 02/25/24 History agitation risperidone 1 mg tablet 1 mg PO BID@0600,2200 02/26/24 02/26/24 02/25/24 History sucralfate 100 mg/mL oral 1 g PO QIDACHS 02/26/24 02/26/24 02/25/24 History suspension Exam Height,Weight and Vital Signs: Height 5 ft 5 in Weight 85.4 kg Last Vital Signs Temp 98.2 F 02/26/24 16:26 Pulse 86 02/26/24 16:26 Resp 18 02/26/24 16:26 BP 120/77 02/26/24 16:26 Pulse Ox 100 02/26/24 12:36 O2 Del Method Room Air 02/26/24 12:36 Pertinent Lab Results Pertinent Lab Results: Laboratory Tests 02/26/24 12:10 WBC 6.3 RBC 1.92 L Hgb 5.4 L* Hct 17.9 L* MCV 93.2 MCH 28.1 MCHC 30.2 L RDW 15.8 Plt Count 352 MPV 9.6 Immature Gran % (Auto) 0.3 Neut % (Auto) 67.4 Lymph % (Auto) 22.7 [place] % (Auto) 8.3 Eos % (Auto) 1.1 Baso % (Auto) 0.2 Lymph # (Auto) 1.4 [place] # (Auto) 0.5 Eos # (Auto) 0.1 Baso # (Auto) 0.0 Abs Immat Gran (auto) 0.02 Absolute Neuts (auto) 4.3 Absolute Nucleated RBC 0.000 Nucleated RBC % (auto) 0.0 Magnesium 2.3 Total Bilirubin 0.1 Direct Bilirubin < 0.2 AST 16 ALT 17 Alkaline Phosphatase 65 Total Protein 5.8 L Albumin 3.5 Urine Color Dark Yellow Urine Appearance Clear Urine pH 7.0 Ur Specific [place] 1.020 Urine Protein Negative Urine Glucose (UA) Negative Urine Ketones Negative Urine Blood Negative Urine Nitrite Negative Ur Leukocyte Esterase Negative Blood Type B Positive Antibody Screen NEGATIVE Crossmatch See Detail Airway Mallampati Class: II TM Dist: >3cm Neck ROM: Full Heart: rrr Lungs: cta Assessment and Plan Assessment Anesthesia Assessment: Anesthesia Plan Discussed Final Anesthetic Review Family History of Problems with Anesthesia: No History of Problems with Anesthesia: No NPO: No (ate at 9 AM , will do after 5 pm) ASA Class: III Final Preanesthetic Review: No Changes in Pt Med Stat Patient Risk: Intermediate Procedure Risk: Low Anesthetic Plan Anesthetic Plan: MAC: Disposition: Standard PACU
--- NOTE | 2024-02-26 17:28 | PC.NURSE ---
Patient arrived to preop. Per ED nurse, active phlebitis present on left FA. Area still red and warm. Cold compress applied. Dr. Fleming made aware.
[2024-02-26 17:47] LABS: Hematocrit 21.4 % (42.0-52.0); Mean Corpuscular HGB Conc 32.2 g/dl (31.0-36.0); Mean Corpuscular Hemoglobin 28.5 pg (27.0-33.0); Mean Corpuscular Volume 88.4 fL (80.0-98.0); Mean Platelet Volume 10.7 fL (9.4-12.4); PLT CLUMP 1; Red Blood Count 2.42 X10*6/uL (4.60-5.80); Red Cell Distribution Width 15.9 % (11.0-16.0)
--- NOTE | 2024-02-26 18:26 | W.PM.OPN ---
Operative Note Operative Note Date of Service: 02/26/24 Narrative: FLEXIBLE TRANSORAL UPPER GASTROINTESTINAL ENDOSCOPY WITH CONTROL OF BLEEDING Pre-op diagnosis: Recurrent Upper GI bleeding, Gastric Bypass status Post-op diagnosis: Anastomotic ulcer with bleeding, Gastric Bypass status Endoscopist:? Arpit Barakat MD Anesthesia:?MAC UPPER ENDOSCOPY Consent: Indications for the procedure and potential complications of bleeding, perforation, reaction to medications and missed diagnosis were discussed with the patient and informed consent was obtained. Instrument: Olympus GIF H 190 mid size upper endoscope Monitoring: Vital signs and clinical assessment, continuous EKG monitoring, Pulse oximetry, Carbon Dioxide monitoring and blood pressure monitoring were done throughout the procedure. Procedure: The patient was placed in the left lateral decubitis position and pre-procedure medications were administered and a bite block was placed. The endoscope was inserted into the mouth and advanced under direct vision to the third part of duodenum. A careful inspection was made as the upper endoscope was withdrawn including a retroflexed examination of the proximal stomach; Findings and interventions are described below. Findings: Larynx: Normal Esophagus: GE junction at 35 cms. Mildly tortuous esophagus Stomach: Normal gastric mucosa in the gastric pouch - with a hemoclip in place in the distal gastric pouch from last EGD Gastro-jejunal anastomosis at 60 cms. No blood or clots noted in the stomach or jejunum Grade 2 flap valve on retroflexed examination of the cardia. Jejunum: A 2 cms ulcer crater just distal to the anastomosis behind a fold with anne red spots and a pigmented protuberance (visible vessel). No active bleeding or blood clots noted in the jejunum A hemoclip was placed over the visible vessel which was dislodged with peristalsis followed by some oozing 5 cc of Epinephrine 1:10, 000 was injected around the ulcer and ulcer base was treated with cautery using the gold probe with cessation of bleeding A hemoclip was placed on a fold adjacent to the ulcer to ja[place] the site of bleeding Hemospray was injected over the ulcer and the endoscope was withdrawn Impression and Post Procedure Diagnosis: Endoscopy Findings: STOMACH: Normal gastric pouch with a hemoclip placed during previous EGD. Gastro-jejunal anastomosis at 60 cms. JEJUNUM: Large 2 cms anastomotic ulcer with a visible vessel (likely source for recurrent anemia and GI bleeding) - treated with epinephrine, cautery with Gold probe and hemospray A hemoclip was placed on a fold adjacent to the ulcer to jaiden the site of bleeding Of note - gastric biospies obtained during previous EGD were negative for H Pylori Plan: 1. Continue IV PPI infusion x 48 hours 2. Repeat CBC tonight and maintain Hb at 7/ hct at 21 - 22%. 3. Clear liquid diet tonight and advance to a regular diet in the am. 4. In case of re-bleeding, evaluation by IR for angiography with embolization Above findings were reviewed with the patient. CBC after 1 U PRBC improved to hb 6.9 and hct 21.4.
[2024-02-26 18:37] LABS: Hemoglobin 6.9 g/dl (14.0-18.0)
[2024-02-26 18:57] LABS: Platelet Count 251 X10*3/uL (160-400); White Blood Count 6.1 X10*3/uL (4.8-10.8)
[2024-02-26] MEDS: Lactated Ringers 1,000 ML 80 ML IVCONT (19:15)
[2024-02-26] MEDS: LORazepam 1 MG TABLET PO (21:17)
[2024-02-26] MEDS: QUEtiapine Fumarate 200 MG TABLET PO (21:17)
[2024-02-26] MEDS: lamoTRIgine 25 MG TABLET PO (21:21)
[2024-02-26] MEDS: Lithium Carbonate ER 450 MG TABLET.ER 900 MG PO (21:21)
[2024-02-26] MEDS: risperiDONE 1 MG TABLET PO (21:21)
[2024-02-26 22:24] LABS: MANUAL DIFF FLAG NO
[2024-02-26 23:15] LABS: Basophils Percent Auto 0.4 % (0-2); Eosinophils Absolute Auto 0.1 X10*3/uL (0.0-0.4); Eosinophils Percent Auto 1.9 % (0-4); Imm Gran Abs Auto 0.02 X10*3/uL (0.00-0.03); Imm Gran Pct Auto 0.4 % (0.0-0.4); Lymphocytes Absolute Auto 1.7 X10*3/uL (1.2-4.9); Lymphocytes Percent Auto 34.9 % (20-40); Mean Corpuscular HGB Conc 32.5 g/dl (31.0-36.0); Mean Corpuscular Hemoglobin 28.7 pg (27.0-33.0); Mean Corpuscular Volume 88.3 fL (80.0-98.0); Mean Platelet Volume 9.9 fL (9.4-12.4); Monocytes Absolute Auto 0.3 X10*3/uL (0.1-1.2); Monocytes Percent Auto 6.9 % (2-11); Neutrophils Absolute Auto 2.6 x10*3/uL (2.0-8.3); Neutrophils Percent Auto 55.5 % (45-73); Platelet Count 312 X10*3/uL (160-400); Red Cell Distribution Width 16.3 % (11.0-16.0); White Blood Count 4.8 X10*3/uL (4.8-10.8)
[2024-02-26 23:49] LABS: Hematocrit 20.3 % (42.0-52.0); Hemoglobin 6.6 g/dl (14.0-18.0)
--- NOTE | 2024-02-26 23:50 | PM.EVENT ---
Event Note Date of Service: 02/26/24 Event Note: Hemoglobin reported to be 6.6. Will order additional 1 unit PRBC Time Spent With Patient Time: Total time managing care of this patient today ____ minutes.
[2024-02-27] VITALS (10 sets, daily range): BP systolic 110–126; BP diastolic 64–84; PULSE 73–90; RESP 16–20; TEMP 36.1–37.6; O2SAT 99–100
[2024-02-27] MEDS: Pantoprazole Sodium 80 MG in 0.9 % Sodium Chloride 80 ML 10 MG IV ×2 (03:18→12:56)
[2024-02-27] MEDS: Lactated Ringers 1,000 ML 80 ML IVCONT (04:54)
[2024-02-27] MEDS: buPROPion HCL 75 MG TABLET PO (05:45)
[2024-02-27] MEDS: QUEtiapine Fumarate 25 MG TABLET PO (05:45)
[2024-02-27] MEDS: Ferrous Sulfate 324 MG TABLET.DR PO (05:45)
[2024-02-27] MEDS: risperiDONE 1 MG TABLET PO ×2 (05:45→22:31)
[2024-02-27 07:05] LABS: MANUAL DIFF FLAG NO
[2024-02-27 07:08] LABS: Basophils Percent Auto 0.4 % (0-2); Eosinophils Absolute Auto 0.1 X10*3/uL (0.0-0.4); Eosinophils Percent Auto 1.9 % (0-4); Hematocrit 23.6 % (42.0-52.0); Hemoglobin 7.8 g/dl (14.0-18.0); Imm Gran Abs Auto 0.03 X10*3/uL (0.00-0.03); Imm Gran Pct Auto 0.6 % (0.0-0.4); Lymphocytes Absolute Auto 1.3 X10*3/uL (1.2-4.9); Lymphocytes Percent Auto 24.6 % (20-40); Mean Corpuscular HGB Conc 33.1 g/dl (31.0-36.0); Mean Corpuscular Hemoglobin 29.3 pg (27.0-33.0); Mean Corpuscular Volume 88.7 fL (80.0-98.0); Mean Platelet Volume 9.6 fL (9.4-12.4); Monocytes Absolute Auto 0.5 X10*3/uL (0.1-1.2); Monocytes Percent Auto 9.7 % (2-11); Neutrophils Absolute Auto 3.4 x10*3/uL (2.0-8.3); Neutrophils Percent Auto 62.8 % (45-73); Platelet Count 280 X10*3/uL (160-400); Red Blood Count 2.66 X10*6/uL (4.60-5.80); Red Cell Distribution Width 15.9 % (11.0-16.0); White Blood Count 5.4 X10*3/uL (4.8-10.8)
[2024-02-27 07:24] LABS: Anion Gap 11 (12-20); Blood Urea Nitrogen 6 mg/dL (9-16); Calcium 8.5 mg/dL (8.4-10.2); Carbon Dioxide 23 mmol/L (22-29); Chloride 109 mmol/L (96-108); Creatinine Clr Calc Pharmacy 158.2; Estimated Glomerular Filt Rate > 60; Glucose Random 86 mg/dL (60-115); Sodium 139 mmol/L (135-145)
[2024-02-27] MEDS: Sucralfate Oral Suspension 1 GM/10 ML ORAL.SUSP PO ×4 (07:33→22:31)
--- NOTE | 2024-02-27 08:51 | MHC.CM.PN ---
CM met with Patient at bedside. Patient lives in a house with his , 11 year old Daughter, Lprmyh-km-Ano & her & their 3 Grandchildren and he is functionally independent. Home/self care is the goal and CM has initiated and will follow for dc planning. Patient has an upcoming initial appointment with a new PCP, from [facility] in [place]. Patient's will transport home.
--- NOTE | 2024-02-27 11:58 | HO.PM.IMPN ---
Subjective Subjective Date of Service: 02/27/24 Interval History: seen and evaluated this morning had regular bowel movement with no melena Hb at 7.8 Review of Systems Review of Systems: Yes all other systems are reviewed and are negative Physical Exam Vital Signs: Vital Signs: Last Vital Signs Temp 97.0 F 02/27/24 11:45 Pulse 80 02/27/24 11:45 Resp 18 02/27/24 11:45 BP 120/78 02/27/24 11:45 Pulse Ox 100 02/27/24 11:25 O2 Del Method Room Air 02/27/24 11:25 O2 Flow Rate 3 02/26/24 18:31 BMI result Body Mass Index 31.3 Const: Other: Constitutional : Awake, interactive, not in distress Neck : Normal inspection, Supple Cardiovascular : RRR, no JVP, no lower extremity edema Respiratory : good bilateral air entry, no crackles, wheezes or rhonchi Gastrointestinal: soft, lax, Normal bowel sounds, Non tender Skin : Warm, Dry Neurological : Alert & oriented x3, No focal deficit Objective Data Active Medications Acetaminophen (Acetaminophen 325 Mg Tablet) 650 mg PO Q6H PRN PRN Reason: Pain, Mild (Pain Scale 1-3), fever or headache Bupropion HCl (Bupropion Hcl 75 Mg Tablet) 75 mg PO DAILY@0600 [facility] Last Admin: 02/27/24 05:45 Dose: 75 mg Documented By: ALEK Calcium Carbonate (Calcium Carbonate 750 Mg Tab.Chew) 750 mg PO Q4H PRN PRN Reason: Heartburn Ferrous Sulfate (Ferrous Sulfate 324 Mg Tablet.) 324 mg PO DAILY@0600 [facility] Last Admin: 02/27/24 05:45 Dose: 324 mg Documented By: ALEK Hydroxyzine HCl (Hydroxyzine Hcl 25 Mg Tablet) 25 mg PO Q6H PRN PRN Reason: Anxiety Lactated Ringer's (Lr) 1,000 mls @ 80 mls/hr IVCONT .[id number] [facility] Last Infusion: 02/27/24 11:38 Dose: 0 mls/hr Documented By: VALERIO Pantoprazole Sodium 80 mg/ (Sodium Chloride) 100 mls @ 10 mls/hr IV .Q10H [facility] Last Admin: 02/27/24 03:18 Dose: 8 mg/hr, 10 mls/hr Documented By: ALEK Lamotrigine (Lamotrigine 25 Mg Tablet) 25 mg PO BEDTIME@2200 [facility] Last Admin: 02/26/24 21:21 Dose: 25 mg Documented By: ALEK [place] Carbonate ([place] Carbonate Er 450 Mg Tablet.Er) 900 mg PO BEDTIME@2200 [facility] Last Admin: 02/26/24 21:21 Dose: 900 mg Documented By: ALEK Lorazepam (Lorazepam 1 Mg Tablet) 1 mg PO BEDTIME@2200 [facility] Last Admin: 02/26/24 21:17 Dose: 1 mg Documented By: ALEK Magnesium Hydroxide (Milk Of Magnesia 30 Ml Oral.Susp) 30 ml PO DAILY PRN PRN Reason: Constipation Melatonin (Melatonin 3 Mg Tablet) 6 mg PO BEDTIME PRN PRN Reason: Insomnia Naloxone HCl (Naloxone Hcl 0.4 Mg/Ml Vial) 0.04 mg IVPUSH Q5M PRN PRN Reason: Excessive sedation or RR < 8 Quetiapine Fumarate (Quetiapine Fumarate 25 Mg Tablet) 25 mg PO DAILY@0600 [facility] Last Admin: 02/27/24 05:45 Dose: 25 mg Documented By: ALEK Quetiapine Fumarate (Quetiapine Fumarate 200 Mg Tablet) 200 mg PO BEDTIME@220 [facility] Last Admin: 02/26/24 21:17 Dose: 200 mg Documented By: ALEK Risperidone (Risperidone 1 Mg Tablet) 1 mg PO BID@0600,2200 [facility] Last Admin: 02/27/24 05:45 Dose: 1 mg Documented By: ALEK Sodium Chloride (0.9 % Sodium Chloride Flush 3 Ml Syringe) 3 ml IVFLUSH QSHIFT [facility] Last Admin: 02/27/24 07:30 Dose: Not Given Documented By: VALERIO Non-Admin Reason: IV Running Sucralfate (Sucralfate Oral Suspension 1 Gm/10 Ml Oral.Susp) 1 gm PO QIDACHS [facility] Last Admin: 02/27/24 11:47 Dose: 1 gm Documented By: VALERIO Labs 02/27/24 06:52 02/27/24 06:52 Labs: Laboratory Results - last 24 hr 10/12/1202/26/24 02/26/24 12:10 17:35 22:11 MCV 93.2 88.4 88.3 MCH 28.1 28.5 28.7 MCHC 30.2 L 32.2 32.5 RDW 15.8 15.9 16.3 H Plt Count 352 251 D 312 MPV 9.6 10.7 9.9 Immature Gran % (Auto) 0.3 0.4 Neut % (Auto) 67.4 55.5 Lymph % (Auto) 22.7 34.9 [place] % (Auto) 8.3 6.9 Eos % (Auto) 1.1 1.9 Baso % (Auto) 0.2 0.4 Lymph # (Auto) 1.4 1.7 [place] # (Auto) 0.5 0.3 Eos # (Auto) 0.1 0.1 Baso # (Auto) 0.0 0.0 Abs Immat Gran (auto) 0.02 0.02 Absolute Neuts (auto) 4.3 2.6 Absolute Nucleated RBC 0.000 0.000 0.000 Nucleated RBC % (auto) 0.0 0.0 0.0 Anion Gap Estim Creat Clear Calc Estimated GFR Random Glucose Calcium Magnesium 2.3 Total Bilirubin 0.1 Direct Bilirubin < 0.2 AST 16 ALT 17 Alkaline Phosphatase 65 Total Protein 5.8 L Albumin 3.5 Urine Color Dark Yellow Urine Appearance Clear Urine pH 7.0 Ur Specific [place] 1.020 Urine Protein Negative Urine Glucose (UA) Negative Urine Ketones Negative Urine Blood Negative Urine Nitrite Negative Ur Leukocyte Esterase Negative Blood Type B Positive Antibody Screen NEGATIVE Crossmatch See Detail 02/27/24 06:52 MCV 88.7 MCH 29.3 MCHC 33.1 RDW 15.9 Plt Count 280 MPV 9.6 Immature Gran % (Auto) 0.6 H Neut % (Auto) 62.8 Lymph % (Auto) 24.6 [place] % (Auto) 9.7 Eos % (Auto) 1.9 Baso % (Auto) 0.4 Lymph # (Auto) 1.3 [place] # (Auto) 0.5 Eos # (Auto) 0.1 Baso # (Auto) 0.0 Abs Immat Gran (auto) 0.03 Absolute Neuts (auto) 3.4 Absolute Nucleated RBC 0.000 Nucleated RBC % (auto) 0.0 Anion Gap 11 L Estim Creat Clear Calc 158.2 Estimated GFR > 60 Random Glucose 86 Calcium 8.5 Magnesium Total Bilirubin Direct Bilirubin AST ALT Alkaline Phosphatase Total Protein Albumin Urine Color Urine Appearance Urine pH Ur Specific [place] Urine Protein Urine Glucose (UA) Urine Ketones Urine Blood Urine Nitrite Ur Leukocyte Esterase Blood Type Antibody Screen Crossmatch Assessment and Plan (1) ABLA (acute blood loss anemia): Status: Acute (2) Acute upper GI bleed: Status: Acute (3) Iron deficiency anemia due to chronic blood loss: Status: Acute (4) Anastomotic ulcer: Status: Acute Plan 29 yo male with a pmhx significant for ADHD, mood d/o, hx morbid obesity s/p Malcolm-en-Y gastric bypass, recently admitted on 02/16 for several episodes of BRBPR and decreasing H+H s/p EGD with cauterization on 02/16 and given 1 U PRBC. Hgb dropped again to 7.5 and repeat EGD 02/20 showed oozing ulceration. He was dc'd home with omeprzole BID, carafate x1 week, and PO iron. At f/u GI appt this AM he was found to have decreasing hgb again at 5.0, and was sent to ED for transfusion and admission for another EGD. Acute blood loss anemia 2/2 Large 2 cms anastomotic ulcer with a visible vessel Ulcer treated with Epi, Cautery and CLIP was placed to jaiden the site of bleeding received 2 units PRBCs, to order 3rd one today Hb 7.8 , monitor CBC IR for Embolization if rebleeds. advance diet Carafate QID Continue pantoprazole drip DC LR GI following mood d/o, adhd continue bupropion, hydroxyzine, lamotrigine, lithium, lorazepam, quetiapine, risperidone and trazodone full code VTE prohpy: mechanical Pt with severe ABLA, melena, UGIB, receiving PRBC, failed outpt management with PPI, carafate and iron. will overnight stay to monitor post transfusion and to assure stability of H+H given recurrent bleeding. Quality Stroke Does the patient have a stroke diagnosis?: No VTE Prior VTE?: No VTE Risk Level:: Medical - moderate - high VTE Device Contraindication: N/A - Device Ordered VTE Drug Contraindication: Treatment Not Indicated
--- NOTE | 2024-02-27 13:52 | HO.POSTANES ---
Post Anesthesia Evaluation Post Anesthesia Evaluation Date of Service: 02/26/24 Vital Signs: Vital Signs Temp Pulse Resp BP Pulse Ox O2 Del Method 02/27/24 12:01 97.2 F 77 16 123/84 02/27/24 11:45 97.0 F 80 18 120/78 02/27/24 11:25 97.0 F 80 18 120/78 100 Room Air 02/27/24 07:51 97.2 F 86 20 122/74 100 Room Air 02/27/24 03:54 97.4 F 73 16 117/73 Anesthesia: Monitored Mental Status: Awake Pain Control: Satisfactory Nausea/Vomiting: None Hydration: Adequate Anesthesia-Related Issues: No Anes. Related Issues
[2024-02-27 14:49] LABS: MANUAL DIFF FLAG NO
[2024-02-27 14:51] LABS: Basophils Percent Auto 0.3 % (0-2); Eosinophils Absolute Auto 0.1 X10*3/uL (0.0-0.4); Eosinophils Percent Auto 1.8 % (0-4); Hematocrit 27.5 % (42.0-52.0); Hemoglobin 8.8 g/dl (14.0-18.0); Imm Gran Abs Auto 0.03 X10*3/uL (0.00-0.03); Imm Gran Pct Auto 0.5 % (0.0-0.4); Lymphocytes Absolute Auto 1.3 X10*3/uL (1.2-4.9); Lymphocytes Percent Auto 22.3 % (20-40); Mean Corpuscular Hemoglobin 28.8 pg (27.0-33.0); Mean Corpuscular Volume 89.9 fL (80.0-98.0); Mean Platelet Volume 10.1 fL (9.4-12.4); Monocytes Absolute Auto 0.5 X10*3/uL (0.1-1.2); Monocytes Percent Auto 8.1 % (2-11); Platelet Count 324 X10*3/uL (160-400); Red Blood Count 3.06 X10*6/uL (4.60-5.80); Red Cell Distribution Width 16.1 % (11.0-16.0)
--- NOTE | 2024-02-27 14:54 | MHC.CM.PN ---
Per Patient's request, CM provided Patient with a brochure, listing area PCPs.
[2024-02-27] MEDS: 0.9 % Sodium Chloride Flush 3 ML SYRINGE IVFLUSH ×2 (16:11→22:30)
[2024-02-27 20:12] LABS: Hematocrit 26.3 % (42.0-52.0); Hemoglobin 8.6 g/dl (14.0-18.0); Mean Corpuscular HGB Conc 32.7 g/dl (31.0-36.0); Mean Corpuscular Hemoglobin 28.8 pg (27.0-33.0); Mean Platelet Volume 9.7 fL (9.4-12.4); Platelet Count 330 X10*3/uL (160-400); Red Blood Count 2.99 X10*6/uL (4.60-5.80); Red Cell Distribution Width 15.7 % (11.0-16.0); White Blood Count 5.3 X10*3/uL (4.8-10.8)
[2024-02-27] MEDS: Lithium Carbonate ER 450 MG TABLET.ER 900 MG PO (22:31)
[2024-02-27] MEDS: LORazepam 1 MG TABLET PO (22:31)
[2024-02-27] MEDS: lamoTRIgine 25 MG TABLET PO (22:31)
[2024-02-27] MEDS: QUEtiapine Fumarate 200 MG TABLET PO (22:31)
[2024-02-28] VITALS: BP 99/59; PULSE 86; RESP 16; TEMP 36.7; O2SAT 97
[2024-02-28] MEDS: Pantoprazole Sodium 80 MG in 0.9 % Sodium Chloride 80 ML 10 MG IV ×2 (00:37→10:00)
[2024-02-28 04:00] VITALS: BP 99/59; PULSE 81; RESP 16; TEMP 36.7; O2SAT 98
[2024-02-28] MEDS: buPROPion HCL 75 MG TABLET PO (05:29)
[2024-02-28] MEDS: risperiDONE 1 MG TABLET PO (05:29)
[2024-02-28] MEDS: Ferrous Sulfate 324 MG TABLET.DR PO (05:29)
[2024-02-28 06:28] LABS: Hematocrit 29.3 % (42.0-52.0); Hemoglobin 9.4 g/dl (14.0-18.0); Mean Corpuscular HGB Conc 32.1 g/dl (31.0-36.0); Mean Corpuscular Hemoglobin 28.8 pg (27.0-33.0); Mean Corpuscular Volume 89.9 fL (80.0-98.0); Mean Platelet Volume 9.5 fL (9.4-12.4); Platelet Count 336 X10*3/uL (160-400); Red Blood Count 3.26 X10*6/uL (4.60-5.80); Red Cell Distribution Width 15.4 % (11.0-16.0); White Blood Count 5.5 X10*3/uL (4.8-10.8)
[2024-02-28 06:40] LABS: Anion Gap 9 (12-20); Blood Urea Nitrogen 6 mg/dL (9-16); Carbon Dioxide 27 mmol/L (22-29); Chloride 108 mmol/L (96-108); Creatinine Clr Calc Pharmacy 151.5; Estimated Glomerular Filt Rate > 60; Glucose Random 76 mg/dL (60-115); Potassium 4.2 mmol/L (3.3-5.1); Sodium 140 mmol/L (135-145)
[2024-02-28 07:17] VITALS: BP 121/74; PULSE 79; RESP 20; TEMP 36.6; O2SAT 100
[2024-02-28] MEDS: Sucralfate Oral Suspension 1 GM/10 ML ORAL.SUSP PO ×3 (07:55→15:37)
[2024-02-28] MEDS: 0.9 % Sodium Chloride Flush 3 ML SYRINGE IVFLUSH ×2 (07:59→11:07)
--- NOTE | 2024-02-28 10:21 | MHC.CM.PN ---
Per ROUNDS discussion, MD will f/u with GI and Patient may be able to dc to home today. CM will follow.
--- NOTE | 2024-02-28 10:32 | P.PNIM_ITS ---
Subjective Subjective Date of Service: 02/28/24 Interval History: no further bleeding Physical Exam 2 Vital Signs: Vital Signs: Last Vital Signs Temp 97.8 F 02/28/24 07:17 Pulse 79 02/28/24 07:17 Resp 20 02/28/24 07:17 BP 121/74 02/28/24 07:17 Pulse Ox 100 02/28/24 07:17 O2 Del Method Room Air 02/28/24 10:20 O2 Flow Rate 3 02/26/24 18:31 BMI result Body Mass Index 31.3 Const: Other: Constitutional : Awake, interactive, not in distress Neck : Normal inspection, Supple Cardiovascular : RRR, no JVP, no lower extremity edema Respiratory : good bilateral air entry, no crackles, wheezes or rhonchi Gastrointestinal: soft, lax, Normal bowel sounds, Non tender Skin : Warm, Dry Neurological : Alert & oriented x3, No focal deficit Objective Data Active Medications Acetaminophen (Acetaminophen 325 Mg Tablet) 650 mg PO Q6H PRN PRN Reason: Pain, Mild (Pain Scale 1-3), fever or headache Bupropion HCl (Bupropion Hcl 75 Mg Tablet) 75 mg PO DAILY@0600 [facility] Last Admin: 02/28/24 05:29 Dose: 75 mg Documented By: FREDERIC Calcium Carbonate (Calcium Carbonate 750 Mg Tab.Chew) 750 mg PO Q4H PRN PRN Reason: Heartburn Ferrous Sulfate (Ferrous Sulfate 324 Mg Tablet.Dr) 324 mg PO DAILY@0600 [facility] Last Admin: 02/28/24 05:29 Dose: 324 mg Documented By: FREDERIC Hydroxyzine HCl (Hydroxyzine Hcl 25 Mg Tablet) 25 mg PO Q6H PRN PRN Reason: Anxiety Pantoprazole Sodium 80 mg/ (Sodium Chloride) 100 mls @ 10 mls/hr IV .Q10H [facility] Last Admin: 02/28/24 10:00 Dose: 8 mg/hr, 10 mls/hr Documented By: SCHUYLER Lamotrigine (Lamotrigine 25 Mg Tablet) 25 mg PO BEDTIME@2200 [facility] Last Admin: 02/27/24 22:31 Dose: 25 mg Documented By: FREDERIC [place] Carbonate ([place] Carbonate Er 450 Mg Tablet.Er) 900 mg PO BEDTIME@0 [facility] Last Admin: 02/27/24 22:31 Dose: 900 mg Documented By: FREDERIC Lorazepam (Lorazepam 1 Mg Tablet) 1 mg PO BEDTIME@2200 [facility] Last Admin: 02/27/24 22:31 Dose: 1 mg Documented By: FREDERIC Magnesium Hydroxide (Milk Of Magnesia 30 Ml Oral.Susp) 30 ml PO DAILY PRN PRN Reason: Constipation Melatonin (Melatonin 3 Mg Tablet) 6 mg PO BEDTIME PRN PRN Reason: Insomnia Naloxone HCl (Naloxone Hcl 0.4 Mg/Ml Vial) 0.04 mg IVPUSH Q5M PRN PRN Reason: Excessive sedation or RR < 8 Quetiapine Fumarate (Quetiapine Fumarate 25 Mg Tablet) 25 mg PO DAILY@0600 [facility] Last Admin: 02/28/24 05:32 Dose: Not Given Documented By: FREDERIC Non-Admin Reason: Patient Refused Quetiapine Fumarate (Quetiapine Fumarate 200 Mg Tablet) 200 mg PO BEDTIME@2200 [facility] Last Admin: 02/27/24 22:31 Dose: 200 mg Documented By: FREDERIC Risperidone (Risperidone 1 Mg Tablet) 1 mg PO BID@0600,2200 [facility] Last Admin: 02/28/24 05:29 Dose: 1 mg Documented By: FREDERIC Sodium Chloride (0.9 % Sodium Chloride Flush 3 Ml Syringe) 3 ml IVFLUSH QSHIFT [facility] Last Admin: 02/28/24 07:59 Dose: 3 ml Documented By: SCHUYLER Sucralfate (Sucralfate Oral Suspension 1 Gm/10 Ml Oral.Susp) 1 gm PO QIDACHS [facility] Last Admin: 02/28/24 07:55 Dose: 1 gm Documented By: SCHUYLER Labs 02/28/24 06:15 02/28/24 06:15 Labs: Laboratory Results - last 24 hr 02/26/24 02/27/24 02/27/24 12:10 14:25 20:06 MCV 89.9 88.0 MCH 28.8 28.8 MCHC 32.0 32.7 RDW 16.1 H 15.7 Plt Count 324 330 MPV 10.1 9.7 Immature Gran % (Auto) 0.5 H Neut % (Auto) 67.0 Lymph % (Auto) 22.3 [place] % (Auto) 8.1 Eos % (Auto) 1.8 Baso % (Auto) 0.3 Lymph # (Auto) 1.3 [place] # (Auto) 0.5 Eos # (Auto) 0.1 Baso # (Auto) 0.0 Abs Immat Gran (auto) 0.03 Absolute Neuts (auto) 4.0 Absolute Nucleated RBC 0.000 0.000 Nucleated RBC % (auto) 0.0 0.0 Anion Gap Estim Creat Clear Calc Estimated GFR Random Glucose Calcium Blood Type B Positive Antibody Screen NEGATIVE Crossmatch See Detail 02/28/24 06:15 MCV 89.9 MCH 28.8 MCHC 32.1 RDW 15.4 Plt Count 336 MPV 9.5 Immature Gran % (Auto) Neut % (Auto) Lymph % (Auto) [place] % (Auto) Eos % (Auto) Baso % (Auto) Lymph # (Auto) [place] # (Auto) Eos # (Auto) Baso # (Auto) Abs Immat Gran (auto) Absolute Neuts (auto) Absolute Nucleated RBC 0.000 Nucleated RBC % (auto) 0.0 Anion Gap 9 L Estim Creat Clear Calc 151.5 Estimated GFR > 60 Random Glucose 76 Calcium 9.0 Blood Type Antibody Screen Crossmatch Assessment and Plan (1) ABLA (acute blood loss anemia): Status: Acute (2) Acute upper GI bleed: Status: Acute (3) Iron deficiency anemia due to chronic blood loss: Status: Acute (4) Anastomotic ulcer: Status: Acute Plan 29M PMH ADHD, mood d/o, hx morbid obesity s/p Malcolm-en-Y gastric bypass, recently admitted on 02/16 for several episodes of BRBPR and decreasing H+H s/p EGD with cauterization of anastamosis site ulcer on 02/16 and given 1 U PRBC. Hgb dropped again to 7.5 and repeat EGD 02/20 showed oozing ulceration. He was dc'd home with omeprzole BID, carafate x1 week, and PO iron. At f/u GI appt on 02/26/24 AM he was found to have hgb of 5.0, and was sent to ED for transfusion and admission for another EGD. Acute blood loss anemia 2/2 Large 2 cms anastomotic ulcer with a visible vessel s/p EGD 02/26/24 Ulcer treated with Epi, Cautery and CLIP was placed to [place] the site of bleeding received 3 units PRBCs Hb 9.4 , monitor CBC IR for Embolization if rebleeds. advance diet Carafate QID Continue pantoprazole drip DC LR GI following mood d/o, adhd continue bupropion, hydroxyzine, lamotrigine, lithium, lorazepam, quetiapine, risperidone and trazodone full code VTE prohpy: mechanical Pt with severe ABLA, melena, UGIB, receiving PRBC, failed outpt management with PPI, carafate and iron. will overnight stay to monitor post transfusion and to assure stability of H+H given recurrent bleeding. Quality Stroke Does the patient have a stroke diagnosis?: No VTE Prior VTE?: No VTE Risk Level:: Medical - moderate - high VTE Device Contraindication: N/A - Device Ordered VTE Drug Contraindication: Treatment Not Indicated
[2024-02-28 12:00] VITALS: BP 121/74; PULSE 79; RESP 20; TEMP 36.6; O2SAT 100
--- NOTE | 2024-02-28 15:27 | P.DS_ITS ---
DS: Providers Provider Date of Service: 02/28/24 Date of admission: 02/26/24 13:19 Date of discharge: 02/28/24 Primary care physician: Kwame Physician DS: Diagnosis Discharge Diagnosis (1) ABLA (acute blood loss anemia): Status: Acute (2) Acute upper GI bleed: Status: Acute (3) Iron deficiency anemia due to chronic blood loss: Status: Acute (4) Anastomotic ulcer: Status: Acute DS: Summary Hospital Course Hospital Course: from initial hpi: 29 yo male with a pmhx significant for ADHD, mood d/o, hx morbid obesity s/p Malcolm-en-Y gastric bypass, recently admitted on 02/16 for several episodes of BRBPR and decreasing H+H s/p EGD with cauterization on 02/16 and given 1 U PRBC. Hgb dropped again to 7.5 and repeat EGD 02/20 showed oozing ulceration. He was dc'd home with omeprzole BID, carafate x1 week, and PO iron. At f/u GI appt this AM he was found to have decreasing hgb again at 5.0, and was sent to ED for transfusion and admission for another EGD. He reports melena for the past week, no SOB, EAST, tachycardia, nausea, vomiting, or abd pain. Pt reports he is asx and feels great. hospital course: Patient was admitted for recurrent acute blood loss anemia secondary to large 2 cm anastomosis site ulcers with visible vessel. Underwent EGD 02/26/2024 and ulcer was treated with epinephrine, cautery, clip. Received total 3 units PRBC and hemoglobin remained stable, was put on Protonix infusion and continued on Carafate. Had no further bleeding. Plan was to watch for least 3 days for rebleed, however, patient requesting to be discharged home, he is instructed to keep a close eye for further melena or any sense bleed and will follow up closely with GI, we will continue PPI b.i.d. and Carafate. For mood disorder and ADHD was continued on bupropion, hydroxyzine, lamotrigine, lithium, lorazepam, quetiapine, risperidone, trazodone. Time Attestation Discharge Coordination Time (in mins): 32 Quality: Safe Use of Opioids Does Pt have an Active Cancer Diagnosis on the Problem List?: No Quality: Stroke Does the patient have a stroke diagnosis?: No Physical Exam Vital Signs: Vital Signs: Last Vital Signs Temp 97.8 F 02/28/24 12:00 Pulse 79 02/28/24 12:00 Resp 20 02/28/24 12:00 BP 121/74 02/28/24 12:00 Pulse Ox 100 02/28/24 12:00 O2 Del Method Room Air 02/28/24 12:00 O2 Flow Rate 3 02/26/24 18:31 BMI result Body Mass Index 31.3 General: AO X 3, no acute distress Resp: CTA bilateral, no accessory muscles used CVS: S1,S2,RRR GI: soft, non tender, non distended Neuro: motor grossly intact, alert Psych: appropriate affect, appropriate insight DS: Data Data Completed and Pending Labs on day of discharge: Laboratory Results - last 24 hr 02/26/24 02/27/24 02/28/24 12:10 20:06 06:15 WBC 5.3 5.5 RBC 2.99 L 3.26 L Hgb 8.6 L 9.4 L Hct 26.3 L 29.3 L MCV 88.0 89.9 MCH 28.8 28.8 MCHC 32.7 32.1 RDW 15.7 15.4 Plt Count 330 336 MPV 9.7 9.5 Absolute Nucleated RBC 0.000 0.000 Nucleated RBC % (auto) 0.0 0.0 Sodium 140 Potassium 4.2 Chloride 108 Carbon Dioxide 27 Anion Gap 9 L BUN 6 L Creatinine 0.71 Estim Creat Clear Calc 151.5 Estimated GFR > 60 Random Glucose 76 Calcium 9.0 Crossmatch See Detail Discharge Plan Discharge Anticipated Discharge Date/Time: 02/28/24 15:25 Patient Disposition: Home, Self-Care Discharge Diagnosis: bleeding ulcers Referrals: Arpit Barakat MD [Physician] - 1 Week Physician,None [Primary Care Provider] - 1 Week Discharge Medications: Continued quetiapine 25 mg tablet 25 mg PO DAILY@0600 sucralfate 100 mg/mL suspension 1 g PO QIDACHS Rx Instructions: Give medication at 0545,0945,1745,2145. quetiapine 200 mg tablet 200 mg PO BEDTIME@2200 omeprazole 40 mg capsule,delayed release(DR/EC) 40 mg PO BID@0600,2200 lithium carbonate 450 mg tablet extended release 900 mg PO BEDTIME@2200 lamotrigine 25 mg tablet 25 mg PO BEDTIME@2200 lorazepam 0.5 mg tablet 1 mg PO BEDTIME@2200 ferrous sulfate 325 mg (65 mg iron) tablet 325 mg PO DAILY@0600 bupropion HCl 75 mg tablet 75 mg PO DAILY@0600 risperidone 1 mg tablet 1 mg PO BID@0600,2200 hydroxyzine HCl 25 mg Tablet 25 mg PO Q6H PRN (Reason: Anxiety) Qty: 30 0RF Discharge Orders: Discharge Order (Routine); Ordered 02/28/24 Ordered By: Lenard Valdovinos Diet: Advance to usual diet Activity on Discharge: As tolerated Stand Alone Forms: Patient Portal Discharge page Print Language: [place] Care Plan Goals: manage ulcers Health Concerns: ulcers Plan of Treatment: ppi and carafate, monitor for bleeding, follow up with gi Assessment: see above
--- NOTE | 2024-02-28 15:28 | MHC.CM.PN ---
Patient has been medically cleared for dc to home today, self care.
[2024-02-28 15:44] VITALS: RESP 19
== END 2024-02-28 15:45 | disposition home or self-care (01) | DRG 241 ==
LOC: HO.ED 12:46 → HO.EDOVER 13:32 → HO.IMC 19:10
PROVIDERS: Internal Medicine Gastroenterology; Physician Assistant; Student in an Organized Health Care Education/Training Program; Admitting Provider Physician Assistant; Emergency Provider Emergency Medicine; Visit Provider Internal Medicine
PROC: 0DJ08ZZ Inspection of Upper Intestinal Tract, Via Natural or Artificial Opening Endoscopic (ICD-10-PCS; CPT 43235; principal; 2024-02-26 16:00)
DX: K28.4 Chronic or unspecified gastrojejunal ulcer with hemorrhage (principal); F90.9 Attention-deficit hyperactivity disorder, unspecified type; D62 Acute posthemorrhagic anemia; Z87.891 Personal history of nicotine dependence; Z98.84 Bariatric surgery status; Z79.899 Other long term (current) drug therapy
CPT/HCPCS: 36415; 80048; 80076; 81003; 83735; 85025; 85027; 86850; 86900; 86901; 86923; 99222; 99285; J0171; J1364; J2003; J2470; J2704; J3010; J7120; P9016

== ENCOUNTER → 2024-02-26 13:19 | Outpatient (BNV) | payer OTHER, SELFPAY | PROVIDERS: Admitting Provider Physician Assistant; Emergency Provider Emergency Medicine; Visit Provider Internal Medicine Gastroenterology | DX: K28.4 Chronic or unspecified gastrojejunal ulcer with hemorrhage (principal); Z98.84 Bariatric surgery status | CPT/HCPCS: 43236; 43255; 99231 ==

== ENCOUNTER → 2024-02-26 13:19 | Outpatient (BNV) | payer OTHER, SELFPAY | PROVIDERS: Admitting Provider Physician Assistant; Emergency Provider Emergency Medicine; Visit Provider Student in an Organized Health Care Education/Training Program | DX: D62 Acute posthemorrhagic anemia (principal); K92.2 Gastrointestinal hemorrhage, unspecified; D50.0 Iron deficiency anemia secondary to blood loss (chronic); K28.9 Gastrojejunal ulcer, unspecified as acute or chronic, without hemorrhage or perforation | CPT/HCPCS: 99222; 99233; 99239; 99499 ==

== ENCOUNTER 2024-06-03 08:02 | Day surgery (SDC) | payer OTHER, SELFPAY ==
--- NOTE | 2024-05-31 09:36 | HO.ANESPROP2 ---
HPI - Anesthesia Eval Consult details Narrative: 29yo M for Upper Endoscopy [facility] [place] 02/2024 with GIB (s/p gastric bypass) hospital course: Patient was admitted for recurrent acute blood loss anemia secondary to large 2 cm anastomosis site ulcers with visible vessel. Underwent EGD 02/26/2024 and ulcer was treated with epinephrine, cautery, clip. Received total 3 units PRBC and hemoglobin remained stable, was put on Protonix infusion and continued on Carafate. Had no further bleeding. Plan was to watch for least 3 days for rebleed, however, patient requesting to be discharged home, he is instructed to keep a close eye for further melena or any sense bleed and will follow up closely with GI, we will continue PPI b.i.d. and Carafate. For mood disorder and ADHD was continued on bupropion, hydroxyzine, lamotrigine, lithium, lorazepam, quetiapine, risperidone, trazodone. PMFSH Active Problems Active Problems: All Active Problems ABLA (acute blood loss anemia) (Acute) Acute upper GI bleed (Acute) Iron deficiency anemia due to chronic blood loss (Acute) Anastomotic ulcer (Acute) Gastric ulcer (Acute) BMI 45.0-49.9, adult (Acute) History of smoking (Acute) Mild depression (Acute) Morbid obesity with BMI of 45.0-49.9, adult (Acute) Vitamin D deficiency (Acute) BMI 50.0-59.9, adult (Acute) Shortness of breath (Acute) Preoperative examination (Acute) Morbid obesity due to excess calories (Acute) Past Medical History Medical History Lower gastrointestinal bleed Bright red blood per rectum Mood disorder ADHD Sleep apnea Asthma Morbid obesity due to excess calories Family History Family History Mother No problems noted. Father Sleep apnea Sister No problems noted. Brother Hypertension Son No problems noted. Daughter Eczema Family history of problems with anesthesia: No Surgical History Surgical History H/O endoscopy History of Malcolm-en-Y gastric bypass History of Problems with Anesthesia: No Social History Social History Household Members: Spouse Housing: House Are you a primary transitional care nurse to a significant other at home: No Do you presently have visiting nurse or other home services: No Alcohol intake: current Alcohol intake frequency: does not drink Patient Tobacco Use Status: Former Tobacco user Tobacco use type: Cigarette Cigarettes Per Day: 2 Years Smoked: 4 Substance Use Type: Marijuana Advance Directives Date on File: 02/23/24 service: No Sexual orientation: Straight/Heterosexual Meds Allergies Allergy/AdvReac Type Severity Reaction Status Date / Time No Known Allergies Allergy Verified 06/03/24 08:29 Home Medications ?Medication ?Instructions ?Recorded ?Confirmed ?Last Taken ?Type omeprazole 40 mg capsule,delayed 40 mg PO BID@0600,2200 02/26/24 06/03/24 02/25/24 History release bupropion HCl 150 mg 24 hr tablet, 150 mg PO DAILY 06/03/24 06/03/24 Unknown History extended release lithium carbonate 300 mg 300 mg PO BID 06/03/24 06/03/24 Unknown History tablet,extended release risperidone 1 mg tablet 1 mg PO BEDTIME 06/03/24 06/03/24 Unknown History Exam Height,Weight and Vital Signs: Height 5 ft 5.5 in Assessment and Plan Assessment Anesthesia Assessment: Chart Reviewed Final Anesthetic Review Family History of Problems with Anesthesia: No History of Problems with Anesthesia: No
--- OUTSIDE RECORDS SUMMARY | 2024-06-03 08:06 | XMS_ITS | Continuity of Care Document ---
Author Organization [facility] Address [address] [place] [address]- Care Team Providers Care Frame Stylist Name Role Phone Mary SOFTWARE CONFIGURATION ENGINEER, Anne-Marie De La Cruz Primary Care Physici an Encounter [facility] Date(s): 04/25/24 - 05/25/24 [facility] [address] [place] [address]- Encounter Type: Triage Allergies, Adverse Reactions, Alerts No Known Allergies Immunizations Given and Recorded Vaccine Date Status Refusal Reason influenza virus vaccine, inactivated 02/09/24 Saravanan rded influenza virus vaccine, inactivated 01/15/21 Saravanan rded SARS-CoV-2 (COVID-19) mRNA BNT-162b2 vac 05/08/21 Recorded SARS-CoV-2 (COVID-19) mRNA BNT-162b2 vac 09/30/20 Recorded SARS-CoV-2 (COVID-19) mRNA BNT-162b2 vac 09/08/20 Recorded tetanus/diphtheria/pertussis, acel(Tdap) 05/22/15 Recorded Medications Albuterol (Eqv-ProAir HFA) Inhalation, Every 6 hours, 0 Refills, Maintenance, 07/27/21 9:51:00 AM EST, Partial fill upon patientrequest if the prescription is for a schedule II opioid drug. Start Date: 07/27/21 Status: Ordered Repeat number: 1 BuPROPion IR 75 mg oral tablet 1 tablet = 75 mg, TAKE 1 TABLET BY MOUTH EVERY MORNING Start Date: 04/09/24 Status: Ordered Repeat number: 1 Celecoxib By Mouth, 0 Refills, Maintenance, 07/27/21 9:52:00 AM EST, Partial fill upon patient request if the prescription is for a schedule II opioid drug. Start Date: 07/27/21 Status: Ordered Repeat number: 1 Docusate = 200 mg, 0 Refills, Maintenance, 04/09/24 9:50:00 AM EST, Partial fill upon patient request if theprescription is for a schedule II opioid drug. Start Date: 04/09/24 Status: Ordered Repeat number: 1 Fiber Tabs = 625 mg, By Mouth, 4 times a day, 0 Refills, Maintenance, 07/27/21 9:52:00 AM EST, Partial fill uponpatient request if the prescription is for a schedule II opioid drug. Start Date: 07/27/21 Status: Ordered Repeat number: 1 Iron Iron, 0 Refills, Maintenance, 04/09/24 9:51:00 AM EST Start Date: 04/09/24 Status: Ordered Repeat number: 1 lithium 300 mg oral tablet, extended release TAKE 1 TABLET BY MOUTH TWICE DAILY Start Date: 04/09/24 Status: Ordered Repeat number: 1 Multivitamin Daily, 0 Refills, Maintenance, 07/27/21 9:52:00 AM EST, Partial fill upon patient request if the prescription is for a schedule II opioid drug. Start Date: 07/27/21 Status: Ordered Repeat number: 1 omeprazole 40 mg oral enteric coated capsule 0 Refills, Maintenance, 04/09/24 9:50:00 AM EST, Partial fill upon patient request if the prescription is for a schedule II opioid drug. Start Date: 04/09/24 Status: Ordered Repeat number: 1 risperiDONE 1 mg oral tablet 1 mg, 1, tablet, TAKE 1 TABLET BY MOUTH EVERY NIGHT AT BEDTIME Start Date: 04/09/24 Status: Ordered Repeat number: 1 Vitamin D 52289 iu oral capsule 1, capsule, By Mouth, Every week, # 30 capsule, Refills 0, Maintenance, 07/27/21 9:52:00 AM EST, Partial fill upon patient request if the prescription is for a schedule II opioid drug. Start Date: 07/27/21 Status: Ordered Quantity: 30.0 Unit: capsule Repeat number: 1 Problem List Condition Confirmation Course Effective Dates Status H ealth Status Informant Attention deficit hyperactivity disorder, combined type Confirmed 12/08/21 Active Bipolar I disorder Confirmed Active Gastroesophageal reflux disease Confirmed Active History of bariatric surgical procedure Confirmed 04/28/22 Active History of gastrointestinal tract bypass Confirmed 09/29/21 Active Obese class I Confirmed Active Obstructive sleep apnea syndrome 1 Confirmed 11/10/20 Active Encounter to establish care Confirmed Active 1Outside Source Comment: Overview: Last study around 2015, would like new study Social History Social History Type Response Smoking Status Never (less than 100 in lifetime) entered on: 04/09/24 Sex Sex Representation Male (finding) Patient Care team information Care Team Personnel Name: Mary RUGGIERO, Anne-Marie De La Cruz Position: [facility] PCO Associate Professional Member Role: PCP Address: [address] [place] [address] Telecom: Care Team Related Persons Name: KELSEY VELAZCO Insurance Providers Guarantor name: GORDY Health Plan Information #: 1 Payer: [employer] Member Number: GORDY Policy Number: GORDY Group Number: [id number]
--- OUTSIDE RECORDS SUMMARY | 2024-06-03 08:06 | XMS_ITS | Continuity of Care Document ---
Author Organization [facility] Address [address] [place] [address] Phone Care Team Providers Care Film Technician Name Role Phone Baylee OD OD, Kevin Unavailable Unavailable Allergies, Adverse Reactions, Alerts Substance Reaction Status Criticality No Known Allergies Active No Inform ation Medications Medication Instructions Dosage Effective Dates (start - stop) Status Comments bupropion HCl XL 150 mg 24 hr tablet, extended release - Active atomoxetine 80 mg capsule TAKE 1 CAPSULE BY MOUTH ONCE DAILY - Active atomoxetine 60 mg capsule TAKE 1 CAPSULE BY MOUTH ONCE DAILY IN THE MORNING - Active duloxetine 30 mg capsule,delayed release TAKE 1 CAPSULE BY MOUTH ONCE DAILY - Active Procedures Procedure Date Refraction Eye exam new comprehensive Advance Directives Directive Yes / No Effective Date File Name No Information Encounters Encounter Description Practice Location Reason(s) For Visit Diagnoses Date Provider Providers Copied on Encounter [facility], [address] [place] [address], [id number], [place] tel:[phone] [facility] vision exam (chief complaint) Myopia, bilateral Baylee OD Kevin. [address] [place] [address], [id number], [place]. tel:[phone] Referring Provider: Owen Sanchez, [address] [place] [address], [id number]. tel:[phone] Family History Family Member Type Diagnosis Age At Onset No Information Payers Payer name Insurance type Covered alliance party ID Guadalupe wellington(s) [employer] CI [id number] Social History Type Description Quantity Date Captured Comments Alcohol Use Details No Caffeine Use Details Unknown Tobacco Use Status Current non-smoker Smoking Status Never smoker Non-Smoking Tobacco Use Details : No Details Available : No Details Available Sex Male Chief Complaint And Reason For Visit From encounter dated '06/26/2023 15:00'. vision exam (chief complaint). Description: The 28 y/o pt presents for a wellness exam in both eyes.Pt states difficulty seeing at a distance. Exam for glasses.2020. Reason For Referral Reason For Referral No Information History Of Present Illness Encounter Date Complaint History Of Prese nt Illness vision exam The 28 y/o pt pr esents for a wellness exam in both eyes.Pt states difficulty seeing at a distance. Exam for glasses.2020. Functional Status Date Functional Assessmen t No Information Instructions Date Instruction Additional Infor mation Impression/Plan Related to Myopi a, bilateral Assessments Type Assessment Date assessment Myopia, bilateral impression Myopia, bilateral: H52.13 Patient Care Teams Name Effective Dates (start - stop) Status Members No Information
--- OUTSIDE RECORDS SUMMARY | 2024-06-03 08:06 | XMS_ITS | Data Portability ---
Author Organization [place] [facility] [address] Address [address] [place] [address] Care Team Providers Care Wood Type Cutter Name Role Phone NATHANIEL KIM Primary Care Provider Assessment No assessment recorded. Plan of Treatment Reminders Order Date Submit Date Provider Last Modified By Organization Details Last Modified Time Details Appointments None recorded. Lab CBC w/ auto diff 2021 022 Zaya [facility], [address], [place], [address], 2 07:45:27 vitamin D, 25-hydroxy, total, serum 2021 022 Zaya [facility], [address], [place], [address], 2 07:45:27 vitamin B1 (thiamine), blood 2021 022 Zaya [facility], [facility], [address], [place], [address], 2 07:45:27 vitamin B12 + folate, serum or blood 2021 022 Zaya [facility], [facility], [place], [address], 2 07:45:28 iron + TIBC + ferritin, serum 2021 022 Zaya [facility], [address], [address], [place], [address], 2 07:45:28 folate, serum 2021 [facility], [address], [address], [place], [address], 2 07:45:28 CMP, serum or plasma 2021 [facility], [address], [address], [place], [address], 2 07:45:28 lipid panel, serum 2021 [facility], [address], [address], [place], [address], 07:45:28 Referral None recorded. Procedures None recorded. Surgeries None recorded. Imaging None recorded. Medication Orders omeprazole 40 mg capsule,del ayed release 2021 [id number], [address] [place], [place], [phone], 09:03:41 ProAir RespiClick 90 mcg/actuati on breath activated 2021 [facility] #[id number], [address] [place], [place], [phone], 09:03:42 Patient TargetsNo targets recorded. Patient InstructionsNo instructions recorded. Reason for Referral None Reported. Problems Name Problem SNOMED Code Status Onset Date Resolution Date Notes Provider Name and Address Organization Details Recorded Time Acid reflux 622461275 Active 2021 [facility] [address] 2 08:24:01 Asthma 678053306 Active 2021 [facility] [address] 2 08:24:07 Joint pain 02340176 Active 2021 Mendyaron Wells [facility] Office [facility], [address] 2 08:24:31 Depressive disorder 36273116 Active 2021 Mendyaron Wells [employer] [facility] Clinic Office [facility], [address] 2 08:24:41 Anxiety 25402658 Active 2021 Mendyaron Wells [facility] Clinic Office [facility], [address] 2 08:24:48 Addiction 72130657 Active 2021 used to smoke marijuana Mendyaron Wells [facility] Office [facility], [address] 2 08:46:32 History of bariatric surgical procedure 135833713 Active 2021 Nathaniel Kim MD [address] [place] [address], [phone], [address] 2 09:07:00 Multiple joint pain 09486535 Active 2021 Nathaniel Kim MD [address] [place] [address], [phone], [address] 2 13:15:33 Problem Notes None recorded. Procedures Surgical History Date Name Laterality Status Provider Name and Address Organization Details Recorded Time 022 Malcolm-en-Y gastrojejunostomy completed Mendy GERRY [facility] [address] 04/28/2022 08:48:11 Imaging Results None recorded. Procedure Notes None recorded. Medical Equipment None Reported. Allergies No known drug allergies Medications Name Sig Start Date Stop Date Status Note LastModified by Organization Details LastModified Time omeprazole 40 mg capsule,del ayed release Take 1 capsule every day by oral route. active Not Available Not Available No t Available ibuprofen 200 mg tablet Take 1 tablet every 6 hours by oral route as needed. 04/28 completed Not Available Not Available Not Available Vitamin D3 1000mg daily active Not Available Not Available No t Available diclofenac 1 % topical gel APPLY 2 GRAMS TO THE AFFECTED AREA(S) BY TOPICAL ROUTE 4 TIMES PER DAY active Not Available Not Available No t Available ProAir RespiClick 90 mcg/actuati on breath activated Inhale 2 puffs every 4 hours by inhalatio n route as needed. 2021 active Not Available Not Available Not Avai lable Vitals Date Recorded Body weight Body height Body mass index (BMI) Body temperature Heart rate Respiratory rate Oxygen saturation Oxygen saturation in Arterial blood by Pulse oximetry Systolic blood pressure Diastolic blood pressure Provider Name and Address Organization Details Last Updated DateTime 29611.6 3 g 165.1 cm 30 kg/m2 97.4 [degF] 65 /min 18 /min 98 % 98 % 118 mm[Hg] 76 mm[Hg] [facility] [address] 08:45:16 Social History Question Answer Notes LastModified by Organizat ion Details LastModified Time Tobacco Smoking Status Former Smoker Mendy [facility] [address] 04/28/2022 08:47:26 Do You Have An Advance Directive? No Information not available 04/28/2022 What Is Your Level Of Alcohol Consumption? None Information not available 04/28/2022 Are You Blind Or Do You Have Difficulty Seeing? No Information not available 04/28/2022 What Is Your Level Of Caffeine Consumption? Occasional Information not available 04/28/2022 Are You Currently Employed? Yes Information not available 04/28/2022 Are You Deaf Or Do You Have Serious Difficulty Hearing? No Information not available 04/28/2022 What Type Of Diet Are You Following? REGULAR Information not available 04/28/2022 Are There Any Guns Present In Your Home? No Information not available 04/28/2022 Do You Have A Medical Power Of Waste Minimization Technician? No Information not available 04/28/2022 What Was The Date Of Your Most Recent Tobacco Screening? 05/19/2022 Information not available 05/17/2022 How Many Children Do You Have? 0 Information not available 04/28/2022 What Is Your Relationship Status? Information not available 04/28/2022 Do You Use Your Seat Belt Or Car Seat Routinely? Yes Information not available 04/28/2022 Do You Have Smoke And Carbon Monoxide Detectors In Your Home? Yes Information not available 04/28/2022 Are You Passively Exposed To Smoke? No Information no t available 04/28/2022 Do You Use Sunscreen Routinely? Yes Information not available 04/28/2022 Has Tobacco Cessation Counseling Been Provided? No Information not available 04/28/2022 Have You Recently Traveled Abroad? No Information not available 04/28/2022 Do You Or Have You Ever Used Any Other Forms Of Tobacco Or Nicotine? No Information not available 04/28/2022 Sex: Unknown Functional Status Question Answer Note LastModified by Organizat ion Details LastModified Time Do you have difficulty walking or climbing stairs? No Information not available 04/28/2022 Do you have difficulty doing errands alone? No Information not available 04/28/2022 Are you able to care for yourself? Yes Information not available 04/28/2022 Do you have difficulty dressing or bathing? No Information not available 04/28/2022 What is your exercise level? Occasional Information not available 04/28/2022 Mental Status Question Answer Note LastModified by Organization D etails LastModified Time Do you have difficulty concentrating, remembering or making decisions? No Information no t available 04/28/2022 Family History Relationship Description Onset Age of this Age Resolved Age Notes LastModified by Organization Details LastModified Time Mother Anemia Not available 1 06/29/2021 08:25:12 Mother Arthritis Not availabl e 04/28/2022 08:25:33 Father Arthritis Not availabl e 04/28/2022 08:25:33 Father Hypertensive disorder Not available 2021 08:26:11 Unspecified Relation Hypertensive disorder more berry Not available 04/28/2022 08:26:11 Medical History Condition Response Anxiety/Depression Y Depression Y Anxiety Y Anemia Y Asthma Y GERD/Reflux Y Past Encounters Encounter ID Performer Location Encounter Start Date Encounter Closed Date Diagnosis/Indication Diagnosis SNOMED-CT Code Diagnosis ICD10 Code Diagnosis Note [id number] Nathaniel Kim MD [facility] [address] [place] [address] 04/28/2022 07:52:46 04/28/2022 09:54:36 Renewal of prescription 190508262 Z76.0 History of bariatric surgical procedure 795165598 Z98.84 Patient had bariatric surgery September 15, 2021 in [facility], [place] prior to procedure he was weighing greater than 350 pounds he is currently weighing 180 pounds Multiple joint pain 3567 8005 M25.50 Health Concerns Section Related Observation LastModified by Organization Detai ls LastModified Time None Recorded Concern Status LastModified by Organization Details LastModified Time None Recorded Advance Directives Directive N: Payers Encounter Date Sequence Insurance Name Policy Number Policy Harmon Covered Member ID Harmon Member ID Guarantor Name 04/28/2022 1 [facility] [employer] (HMO) [id number] Danny Goodwin [id number] Danny Goodwin Notes Date Note Type Note Provider Name and Address Organization Details Recorded Time 04/28/2022 text/html Pleasant 27-year-old male patient is here to establish care with a past medical history significant for bariatric surgery Done at [facility], [place] Dated September 15, 2021. Prior to bariatric surgery patient was weighing greater than 350 pounds.Today patient weighs 180 pounds.Patient is concerned about his electrolytes and vitamin level and would like to have Labs performed.Medical history significant for anxiety depression, asthma previous history of marijuana use and acid reflux.Multiple fasting and nonfasting labs ordered.RTC in 30 days. Nathaniel Kim MD [facility] [place], [address], [facility] [place] 04/28/2022 13:24:26
[2024-06-03 08:28] VITALS: BMI 33.9
--- NOTE | 2024-06-03 08:40 | MHC.SHP ---
Pre-Procedural Eval Section A - 24 Hr Update-Section A only Date of Service: 06/03/24 The patient is an INPATIENT: No The patient has been examined within 24 hours of the surgical procedure. The History & Physical has been completed within 30 days and I have reviewed it.: No Section B - Complete if H&P > 30 days Chief Complaint: Gastrojejunal ulcer - FU Relevant Family History (Specify if Yes): No Relevant Social History: Tobacco Use (Former smoker) Present Medications: see Short Stay Collaborative assessment Medical History: Significant History (Mood disorder, ADHD Sleep apnea Asthma Morbid obesity due to excess calories) History of Previous Operations: Relevant previous surgery/procedure and date(s) (History of EGD, history of Malcolm-en-Y gastric bypass surgery) Allergies: Allergies Allergy/AdvReac Type Severity Reaction Status Date / Time No Known Allergies Allergy Verified 06/03/24 08:29 Review of Systems Sugical H&P ROS: Negative: Constitution, Cardiovascular, Respiratory and Gastrointestinal Exam Surgical H&P Exam: Normal: Heart, Normal: Lungs, Normal: Extremities and Normal: Abdomen Plan Diagnosis/Plan: Unchanged I have reviewed the history and physical and performed a pertinent physical examination on my patient. No changes have occurred unless specified. Time Spent With Patient Time: Total time managing care of this patient today ____ minutes.
[2024-06-03] MEDS: Lactated Ringers 1,000 ML 100 ML IVCONT (08:42)
[2024-06-03 08:49] VITALS: BP 119/74; PULSE 77; RESP 18; TEMP 36.8; O2SAT 100
[2024-06-03 09:18] LABS: Mean Corpuscular HGB Conc 31.5 g/dl (31.0-36.0); Mean Corpuscular Hemoglobin 24.7 pg (27.0-33.0); Mean Corpuscular Volume 78.4 fL (80.0-98.0); Mean Platelet Volume 9.9 fL (9.4-12.4); Platelet Count 264 X10*3/uL (160-400); Red Cell Distribution Width 14.9 % (11.0-16.0); White Blood Count 6.5 X10*3/uL (4.8-10.8)
[2024-06-03 09:38] LABS: Hemoglobin 12.6 g/dl (14.0-18.0)
--- NOTE | 2024-06-03 09:57 | P.CONAN_ITS ---
[facility] Active Problems Active Problems: All Active Problems ABLA (acute blood loss anemia) (Acute) Acute upper GI bleed (Acute) Iron deficiency anemia due to chronic blood loss (Acute) Anastomotic ulcer (Acute) Gastric ulcer (Acute) BMI 45.0-49.9, adult (Acute) History of smoking (Acute) Mild depression (Acute) Morbid obesity with BMI of 45.0-49.9, adult (Acute) Vitamin D deficiency (Acute) BMI 50.0-59.9, adult (Acute) Shortness of breath (Acute) Preoperative examination (Acute) Morbid obesity due to excess calories (Acute) Past Medical History Medical History Lower gastrointestinal bleed Bright red blood per rectum Mood disorder ADHD Sleep apnea Asthma Morbid obesity due to excess calories Functional capacity: independent ambulation Family History Family History Mother No problems noted. Father Sleep apnea Sister No problems noted. Brother Hypertension Son No problems noted. Daughter Eczema Family history of problems with anesthesia: No Surgical History Surgical History H/O endoscopy History of Malcolm-en-Y gastric bypass History of Problems with Anesthesia: No Social History Social History Household Members: Spouse Housing: House Are you a primary personal care worker to a significant other at home: No Do you presently have visiting nurse or other home services: No Alcohol intake: current Alcohol intake frequency: does not drink Patient Tobacco Use Status: Former Tobacco user Tobacco use type: Cigarette Cigarettes Per Day: 2 Years Smoked: 4 Substance Use Type: Marijuana Have you been hit, kicked, punched, or otherwise hurt by someone within the past year? If so, by whom?: No Are you DNR?: No Advance Directives: No Advance Directives Information Provided: Yes Advance Directives Date on File: 02/23/24 Recently lost weight without trying: No Nutrition Risks: No Nutritional Risk service: No Sexual orientation: Straight/Heterosexual Meds Allergies Allergy/AdvReac Type Severity Reaction Status Date / Time No Known Allergies Allergy Verified 06/03/24 08:29 Active Medications: Current Medications Albuterol Sulfate (Albuterol Sulfate (0.083%) 2.5 Mg/3 Ml Vial.Neb) 2.5 mg INHALE ONCE PRN PRN Reason: Shortness of Breath/Wheezing Lactated Ringer's (Lr) 1,000 mls @ 100 mls/hr IVCONT .Q10H EBER Last Admin: 06/03/24 08:42 Dose: 100 mls/hr Home Medications ?Medication ?Instructions ?Recorded ?Confirmed ?Last Taken ?Type omeprazole 40 mg capsule,delayed 40 mg PO BID@0600,2200 02/26/24 06/03/24 02/25/24 History release bupropion HCl 150 mg 24 hr tablet, 150 mg PO DAILY 06/03/24 06/03/24 Unknown History extended release lithium carbonate 300 mg 300 mg PO BID 06/03/24 06/03/24 Unknown History tablet,extended release risperidone 1 mg tablet 1 mg PO BEDTIME 06/03/24 06/03/24 Unknown History Exam Height,Weight and Vital Signs: Height 5 ft 5.5 in Weight 93.894 kg Last Vital Signs Temp 98.3 F 06/03/24 08:49 Pulse 77 06/03/24 08:49 Resp 18 06/03/24 08:49 BP 119/74 06/03/24 08:49 Pulse Ox 100 06/03/24 08:49 O2 Del Method Room Air 06/03/24 08:49 Pertinent Lab Results Pertinent Lab Results: Laboratory Tests 06/03/24 09:07 WBC 6.5 RBC 5.10 D Hgb 12.6 L D Hct 40.0 L D MCV 78.4 L MCH 24.7 L MCHC 31.5 RDW 14.9 Plt Count 264 MPV 9.9 Absolute Nucleated RBC 0.000 Nucleated RBC % (auto) 0.0 Airway Mallampati Class: II TM Dist: >3cm Neck ROM: Full Heart: RRR Lungs: CTA Assessment and Plan Assessment Anesthesia Assessment: Anesthesia Plan Discussed and Chart Reviewed Final Anesthetic Review Family History of Problems with Anesthesia: No History of Problems with Anesthesia: No NPO: Yes ASA Class: II Final Preanesthetic Review: Meds/Allgs Chart Reviewed, Consent Obtained/Reviewed and Anes Risks/Benef Reviewed Patient Risk: Intermediate Procedure Risk: Low Anesthetic Plan Anesthetic Plan: MAC: Disposition: Standard PACU
--- NOTE | 2024-06-03 10:21 | W.PM.OPN ---
Operative Note Operative Note Date of Service: 06/03/24 Narrative: FLEXIBLE TRANSORAL UPPER GASTROINTESTINAL ENDOSCOPY Pre-op diagnosis: Follow-up of anastomotic ulcer Post-op diagnosis: healed jejunal ulcer, gastric bypass status Endoscopist:? Arpit Barakat MD Anesthesia:?MAC UPPER ENDOSCOPY Consent: Indications for the procedure and potential complications of bleeding, perforation, reaction to medications and missed diagnosis were discussed with the patient and informed consent was obtained. Instrument: Olympus GIF H 190 mid size upper endoscope Monitoring: Vital signs and clinical assessment, continuous EKG monitoring, Pulse oximetry, Carbon Dioxide monitoring and blood pressure monitoring were done throughout the procedure. Procedure: The patient was placed in the left lateral decubitis position and pre-procedure medications were administered and a bite block was placed. The endoscope was inserted into the mouth and advanced under direct vision to the third part of duodenum. A careful inspection was made as the upper endoscope was withdrawn including a retroflexed examination of the proximal stomach; Findings and interventions are described below. Findings: Larynx: Normal Esophagus: GE junction at 35 cms. Mildly tortuous esophagus Stomach: Normal gastric mucosa in the gastric pouch. Gastro-jejunal anastomosis at 60 cms. Ulcer seen on previous EGD healed completely Grade 2 flap valve on retroflexed examination of the cardia. Jejunum: Ulcer seen in proximal jejunum on previous EGD resolved. Intervention: None Impression and Post Procedure Diagnosis: Endoscopy Findings: ESOPHAGUS: Mildly tortuous esophagus STOMACH: Normal gastric mucosa in the gastric pouch. Gastro-jejunal anastomosis at 60 cms. Ulcer seen on previous EGD healed completely JEJUNUM: Ulcer seen in proximal jejunum on previous EGD resolved. Plan: Pt has a FU appointment on 06/20/[address] Barakat. Above findings were reviewed with the patient. Patient was advised to decrease omeprazole to 40 mg once a day.
[2024-06-03 10:37] VITALS: BP 104/55; PULSE 81; RESP 16; TEMP 36.2; O2SAT 95
[2024-06-03 10:52] VITALS: BP 108/65; PULSE 78; RESP 16; O2SAT 95
[2024-06-03 11:16] VITALS: BP 111/69; PULSE 77; RESP 16; TEMP 36.6; O2SAT 100
--- NOTE | 2024-06-03 15:12 | HO.POSTANES ---
Post Anesthesia Evaluation Post Anesthesia Evaluation Date of Service: 06/03/24 Vital Signs: Vital Signs Temp Pulse Resp BP Pulse Ox O2 Del Method 06/03/24 11:16 97.9 F 77 16 111/69 100 Room Air 06/03/24 10:52 78 16 108/65 95 Room Air 06/03/24 10:37 97.1 F 81 16 104/55 L 95 Room Air 06/03/24 08:49 98.3 F 77 18 119/74 100 Room Air Anesthesia: Monitored Mental Status: Awake Pain Control: Satisfactory Nausea/Vomiting: None Hydration: Adequate Anesthesia-Related Issues: No Anes. Related Issues
== END 2024-06-03 11:55 | disposition home or self-care (01) ==
PROVIDERS: Nurse Practitioner; Visit Provider Internal Medicine Gastroenterology
PROC: 0DJ08ZZ Inspection of Upper Intestinal Tract, Via Natural or Artificial Opening Endoscopic (ICD-10-PCS; CPT 43235; principal; 2024-06-03 10:10)
DX: K22.89 Other specified disease of esophagus (principal); Z87.11 Personal history of peptic ulcer disease; Z98.0 Intestinal bypass and anastomosis status; Z98.84 Bariatric surgery status; J45.909 Unspecified asthma, uncomplicated; E66.01 Morbid (severe) obesity due to excess calories; Z79.899 Other long term (current) drug therapy; Z87.891 Personal history of nicotine dependence
CPT/HCPCS: 43235; 36415; 85027

== ENCOUNTER → 2024-06-03 08:02 | Outpatient (BNV) | payer OTHER, SELFPAY | PROVIDERS: Visit Provider Internal Medicine Gastroenterology | DX: Z87.11 Personal history of peptic ulcer disease (principal); Z98.84 Bariatric surgery status | CPT/HCPCS: 43235 ==

== ENCOUNTER 2024-06-20 12:32 | Outpatient (AMB) | payer OTHER, SELFPAY ==
--- NOTE | 2024-06-20 12:41 | MHC.OFFVIS ---
Vital Signs 06/20/24 12:53 Height 5 ft 5 in Weight 200 lb BMI 33.3 BP 130/59 L Blood Pressure Location Lt brachial Position Sitting Pulse 91 Pulse Oximetry (%) 98 Oxygen Delivery Method Room Air Intake Visit Reasons: EGD RESULTS Intake Note: Patient post op for Anemia and EGD results. Patient denies any GI issues for today. Scanner Supervisor Required: No Accompanied by: Self / Same As Patient Allergies No Known Allergies Allergy (Verified 06/20/24 12:41) Medication List - Last Reconciled 06/20/24 by Arpit Barakat MD bupropion HCl XL 150 mg PO DAILY lithium carbonate ER 300 mg PO BID omeprazole 40 mg PO DAILY risperidone 1 mg PO BEDTIME HPI HPI EGD RESULTS: Details: GI clinic visit for this 29 YM with ADHD, hx Malcolm-en-Y gastric bypass surgery, anxiety, and depression?for FU after EGD TODAY'S VISIT: EGD results were reviewed. Patient denies symptoms of heartburn, dysphagia, nausea, vomiting, change in appetite or weight. Denies recent change in bowel habits, constipation, diarrhea, black stools or rectal bleeding. Takes fibre and doccusate for constipation Patient denies major cardiac or pulmonary problems, loud snoring or sleep apnea Denies problems with anesthesia in the past. Denies being on chronic anticoagulation. Patient denies known family history of colon polyps, colon cancer or other GI malignancies. Moving to [facility] tomorrow PAST EGD/COLONOSCOPY LABS IN [facility] : Reviewed IMAGING STUDIES: 02/17/[address] SCAN SHOWED: Status post gastric bypass surgery. Findings consistent with active GI bleeding into the proximal small bowel at the gastrojejunostomy anastomosis. Approximately 2 cm right adrenal nodule as detailed above, probably representing a benign adenoma, not definitively characterized as such without the benefit of 15 minutes delayed imaging. The finding probably represents a benign adenoma. Follow-up dedicated adrenal washout CT in one year is recommended for further evaluation. ENDOSCOPIC STUDIES: 06/03/24 EGD SHOWED: ESOPHAGUS: Mildly tortuous esophagus STOMACH: Normal gastric mucosa in the gastric pouch. Gastro-jejunal anastomosis at 60 cms. Ulcer seen on previous EGD healed completely JEJUNUM: Ulcer seen in proximal jejunum on previous EGD resolved. Plan: Patient was advised to decrease omeprazole to 40 mg once a day. PAST GI HISTORY BY REVIEW OF MEDICAL RECORDS: 02/26/24 PT WAS SEEN DURING HOSPITALIZATION AT [facility] 29-year-old male with ADHD, hx Malcolm-en-Y, anxiety, and depression?came to [facility] ED after labs showed recurrent anemia. Pt was hospitalized at [facility] psychiatry unit on 02/08/24 for dysregulated behavior at home. He was transferred to the medical floor on 02/17/24 due to GI bleeding EGD showed scattered clots in the stomach and a large 2 cms anastomotic ulcer with a visible vessel in the proximal jejunum which was cauterized. Pt had a repeat EGD for recurrent bleeding on 02/21/24 which showed a small ulcer at the distal part of the pouch with oozing noted. x2 clips applied with hemospray, bleeding then ceased He was discharged home on 02/22/24. FU labs today showed recurrent anemia with H & H of 5 & 16.6 and pt advised to return to the ER for readmission and a blood transfusion Pt denies abdominal pain, nausea, vomiting or hematemsis. He reports having 3 soft to loose BMs yesterday which were dark in color Last BM was today at 4-5 am (dark in color) and no BMs since then Pt stated he feels great, taking iron pills and Omeprazole in apple sauce. He is taking iron once a day. Has had a little bit of tarry stools and stools are normalizing little by little Denies feeling lightheaded or dizzy. Went to the Gym yesterday Plan 29-year-old male with ADHD, hx Malcolm-en-Y, anxiety, and depression?came to [facility] ED after labs showed recurrent anemia due to recurrent UGI bleeding. Pt was hospitalized at [facility] psychiatry unit on 02/08/24 for dysregulated behavior at home. He was transferred to the medical floor on 02/17/24 due to GI bleeding EGD showed scattered clots in the stomach and a large 2 cms anastomotic ulcer with a visible vessel in the proximal jejunum which was cauterized. Pt had a repeat EGD for recurrent bleeding on 02/21/24 which showed a small ulcer at the distal part of the pouch with oozing noted. x2 clips applied with hemospray, bleeding then ceased He was discharged home on 02/22/24. FU labs today showed recurrent anemia with H & H of 5 & 16.6 and pt advised to return to the ER for readmission and a blood transfusion Recurrent anemia likely from anastomotic ulcer RECOMMENDATIONS: 1. Check CBC every 8 hrs x 24 hrs after transfusion of 2 U PRBC 2. IV PPI infusion 3. Pt scheduled for urgent EGD today 4. IV erythromycin to facilitate gastric emptying (pt states he had breakfast after he had the first set of labs drawn this am at 8:17 am) [facility] Medical History Lower gastrointestinal bleed Bright red blood per rectum Mood disorder ADHD Sleep apnea Asthma Morbid obesity due to excess calories Surgical History H/O endoscopy History of Malcolm-en-Y gastric bypass Family History Mother No problems noted. Father Sleep apnea Sister No problems noted. Brother Hypertension Son No problems noted. Daughter Eczema Social History Household Members: Spouse Housing: House Are you a primary transitional care nurse to a significant other at home: No Do you presently have visiting nurse or other home services: No Alcohol intake: current Alcohol intake frequency: does not drink Patient Tobacco Use Status: Former Tobacco user Tobacco use type: Cigarette Cigarettes Per Day: 2 Years Smoked: 4 Substance Use Type: Marijuana Advance Directives Date on File: 02/23/24 service: No Sexual orientation: Straight/Heterosexual Review of Systems Const All systems reviewed & are unremarkable except as noted in HPI and below Physical Exam Vital Signs: Last Vital Signs Pulse 91 06/20/24 12:53 BP 130/59 L 06/20/24 12:53 Pulse Ox 98 06/20/24 12:53 Oxygen Delivery Method Room Air 06/20/24 12:53 BMI result Body Mass Index 33.3 Const General: no acute distress Nutritional Appearance: obese Orientation/consciousness: patient oriented x3 Limitations: no limitations HEENT Head: Yes normal to inspection Ears: hearing grossly normal bilaterally Eyes Sclerae: sclerae normal Pupils: Equal, round and reactive pupils present Neck Neck: Yes normal visual inspection Chest Chest palpation & inspection: normal inspection of the chest Resp Effort & Inspection: normal respiratory effort Auscultation: clear to auscultation bilaterally Cardio Palpation: normal PMI Rate: regular rate Rhythm: regular rhythm Heart sounds: S1 normal heart sound present, S2 normal heart sound present and no murmurs GI Palpation (GI): Soft to palpation, nontender and No hepatosplenomegaly present Auscultation: normal bowel sounds Rectal Exam - Male: Yes deferred Skin General skin exam: no rashes or lesions noted Neuro General: patient oriented x3, gait normal and moves all extremities Cranial nerves: Yes Equal, round and reactive pupils present Psych Appearance: grossly normal Mental Status: mental status grossly normal Assessment & Plan Assessment & Plan (1) Iron deficiency anemia due to chronic blood loss: Code(s): D50.0 - Iron deficiency anemia secondary to blood loss (chronic) Category: Medical (2) Anastomotic ulcer: Code(s): K28.9 - Gastrojejunal ulcer, unspecified as acute or chronic, without hemorrhage or perforation Category: Medical Plan 29 YM with ADHD, hx Malcolm-en-Y gastric bypass surgery, anxiety, and depression?for FU after EGD. Pt was hospitalized at [facility] in Feb, 2024 for recurrent UGI bleeding from am anastomotic ulcer at the Gastro-jejunal anastomosis associated with severe anemia requiring blood transfusion FU EGD was performed in May, 2024 which showed complete healing of the ulcer. Patient was advised to continue omeprazole 40 mg daily. No FU appt scheduled since pt is moving to [facility] on 06/21/24. He was advised to establish care with a PCP and a barrel burner, He was advised to schedule a dedicated adrenal washout CT in Feb, 2025 via his new PCP's office to FU on a 2 cms right adrenal nodule (suspected to be a benign adenoma) A copy of the Abd CT and EGD reports were given to the patient. Coding Level of Care Code Est Pt Level 4 (86759) Diagnoses Iron deficiency anemia due to chronic blood loss D50.0 Anastomotic ulcer K28.9 Time Spent (min) 21
[2024-06-20 12:53] VITALS: BP 130/59; PULSE 91; O2SAT 98; BMI 33.3
--- OUTSIDE RECORDS SUMMARY | 2024-06-20 16:22 | XMS_ITS | Clinical Summary ---
Author Organization [facility] Address [address] [place] [address] Care Team Providers Care Nurse Midwife/Clinical Instructor Name Role Phone Kaleb Kim ZARIA Primary Care Provider [phone] Source Comments PLEASE NOTE, if this patient is a minor, it may be UNLAWFUL to discuss sensitive information that is contained in these records (such as FAMILY PLANNING, MENTAL HEALTH or SUBSTANCE ABUSE) with the minor patient's parent or other person without the patient's specific authorization.[facility] Allergies No known active allergies Medications cholecalciferol, vitamin D3, 25 mcg (1,000 unit) tabletIndications :Vitamin D deficiency Take 1 Tablet by mouth once daily 90 Tablet 1 Active PROAIR HFA 90 mcg/actuation inhalerIndication s:Mild intermittent asthma, unspecified whether complicated INHALE 2 PUFFS INTO THE LUNGS EVERY 4 TO 6 HOURS NEEDED FOR COUGH OR SHORTNESS OF BREATH 8.5 g 2 Active ursodioL (ACTIGALL) 250 mg tablet TAKE 1 TABLET BY MOUTH TWICE DAILY WITH FOOD. START 2 WEEKS AFTER SURGERY 2 Active multivitamin-min- iron-FA-vit K (BARIATRIC MULTIVITAMINS) 45 mg iron- 800 mcg-120 mcg capIndications:Ga stric bypass status for obesity,History of Bren-en-Y gastric bypass Take 2 Tablets by mouth 2 (two) times daily 2 Active escitalopram oxalate (LEXAPRO) 5 mg tabletIndications :Depression with anxiety Take 1 Tablet by mouth once daily 30 Tablet 2 2 Active omeprazole (PRILOSEC) [address] capsuleIndication s:Gastroesophagea l reflux disease without esophagitis Take 1 Capsule by mouth every morning before breakfast 60 Capsule 1 2 Active diclofenac sodium (VOLTAREN) 1 % gelIndications:Ac maria teresa right-sided low back pain without sciatica APPLY TOPICALLY TO THE AFFECTED AREA TWICE DAILY 200 g 2 Active Active Problems Problem Noted Date Diagnosed Date Attention deficit hyperactiv ity disorder (ADHD), combined type 12/08/2021 Overview (12/08/2021): 12/08/21: Sees Q2 weeks ([facility]), waiting for psych eval. Used to be on medication but stopped. History of Bren-en-Y gastric bypass 09/29/2021 Overview (09/29/2021): bren en y gastric bypass surgery at [facility]) on 09/15/21. DEXA score due in 2023 Gastroesophageal reflux disease 09/29/2021 Mild intermittent asthma 11/10/2020 Depression 11/10/2020 Overview (11/10/2020): Follows [facility], just started October 2020 VANCE on CPAP 11/10/2020 Overview (11/10/2020): Last study around 2015, would like new study Obesity 11/10/2020 Overview (11/10/2020): Follows [facility] Bariatrics Immunizations Name Administration Dates Next Due INFLUENZA, SEASONAL, INJECTABLE 01/15/2021 PFIZER COVID VACCINE, PURPLE CAP, 12+ 09/30/2020 ,09/08/2020 TDAP 05/22/2015 Family History Medical History Relation Name Comments Hypertension Brother Hypertension Father No Known Problems Mother Other Other VANCE Relation Name Status Comments Brother Father Alive Mother Alive Other Social History Tobacco Use Types Packs/Day Years Used Date Smoking Tobacco: Former Smokeless Tobacco: Never Tobacco Cessation:Counseling Given: Not Answered Comments:former vaping Alcohol Use Standard Drinks/Week Comments Not Currently 0 (1 standard drink = 0.6 oz pur e alcohol) some times Social Connections Answer Date Recorded Connectedness 0 01/31/2024 Financial Resource Strain Answer Date R ecorded Financial Resource Strain 0 2020 Stress Answer Date Recorded Stress 0 11/10/2020 Physical Activity Answer Date Recorded Physical Activity 0 11/10/2020 Food Insecurity Answer Date Recorded Food 0 02/15/2024 Transportation Needs Answer Date Record ed Transportation 0 11/10/2020 Housing Stability Answer Date Recorded Housing 0 11/10/2020 Safety and Environment Answer Date Saravanan rded Safety 0 11/10/2020 Utilities Answer Date Recorded Utilities 0 11/10/2020 Employment Answer Date Recorded Stress 0 01/31/2024 Sex and Gender Information Value Date Recorded Sex Assigned at Male 11/10/2020 10:56 AM PDT Legal Sex Male 10:24 AM PST Gender Identity Male 11/10/2020 10:56 AM PDT Sexual Orientation Straight 11/10/2020 10 :56 AM PDT 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 Not on file Not on file Not on file Last Filed Vital Signs Vital Sign Reading Time Taken Comments Blood Pressure 118/70 12/08/2021 9:30 AM EDT Pulse 84 12/08/2021 9:30 AM EDT Temperature 37.2 ??C (98.9 ??F) 09/29/2021 1:34 PM ED T Respiratory Rate 16 12/08/2021 9:30 AM EDT Oxygen Saturation 99% 11/10/2020 1:48 PM EDT Inhaled Oxygen Concentration - - Weight 103.9 kg (229 lb) 12/08/2021 9:30 AM EDT Height 165.1 cm (5' 5 ) 12/08/2021 9:30 AM EDT Body Mass Index 38.11 12/08/2021 9:30 AM EDT Plan of Treatment Health Maintenance Due Date Last Done Comments Imm-Hepatitis B (1 of 3 - 19 + 3-dose series) 01/13/2012 Imm-Pneumococcal (1 of 2 - PCV) 01/13/2012 Annual Preventive Care Visit 11/10/2021 11/10/2020 Depression Monitoring 12/30/2021 09/29/2021, 021 Tobacco Screening 09/29/2022 09/29/2021 Dry-[id number]-[id number] ( season) 2024 05/08/2021, 09/30/2020, 09/08/2020 Imm-Influenza (#1) 2024 01/15/2021 Alcohol and Drug Screen 05/22/2024 12/08/2021, 11/10 Hypertension Screening (#1) 12/07/2024 Imm-DTaP/Tdap/Td (2 - Td or Tdap) 05/22/2025 016 HIV Screening Completed 09/29/2021 Hepatitis C Screening Completed 09/29/2021 Procedures Procedure Name Priority Date/Time Associated Diagnosis Comments HIV 1/2 AG & AB W/RFLX (4TH GEN) Routine 09/29/2021 2:00 PM EDT HEPATITIS C AB W/RFLX HCV RNA, QT, RT PCR Routine 09/29/2021 2:00 PM EDT from Last 3 Months or Most Recently Relevant to Health Maintenance Results * HEPATITIS C AB W/RFLX HCV RNA, QT, RT PCR (09/29/2021 2:00 PM EDT) HEPATITIS C ANTIBODY NON-REACT ESTEBAN NON-REACT ESTEBAN [facility] SIGNAL TO CUT-OFF 0.02 <1.00 [facility] Comment: HCV antibody was non-reactive. There is no laboratory evidence of HCV infection. In most cases, no further action is required. However, if recent HCV exposure is suspected, a test for HCV RNA (test code 80188) is suggested. For additional information please refer to http://education.[employer]/faq/MRV44d4 (This link is being provided for informational/ educational purposes only.) 09/29/2021 2:00 PM EDT 09/29/2021 2:01 PM EDT Narrative [facility] - 10/02/2021 8:46 PM EDT FASTING:NO us Marlene Desouza NP LAB - BLOOD DRAW Edited Resu lt - Final [facility] [address] [place] [id number], [facility] [address] [address] * HIV 1/2 AG & AB W/RFLX (4TH GEN) (09/29/2021 2:00 PM EDT) HIV AG/AB, 4TH GEN NON-REAC TIVE NON-REAC TIVE [facility] Comment: HIV-1 antigen and HIV-1/HIV-2 antibodies were not detected. There is no laboratory evidence of HIV infection. PLEASE NOTE: This information has been disclosed to you from records whose confidentiality may be protected by state law. ??If your state requires such protection, then the state law prohibits you from making any further disclosure of the information without the specific written consent of the person to whom it pertains, or as otherwise permitted by law. A general authorization for the release of medical or other information is NOT sufficient for this purpose. ?? For additional information please refer to http://education.[employer]/faq/LCS199 (This link is being provided for informational/ educational purposes only.) The performance of this assay has not been clinically validated in patients less than 2 years old. 09/29/2021 2:00 PM EDT 09/29/2021 2:01 PM EDT Narrative [facility] - 10/02/2021 8:46 PM EDT FASTING:NO Marlene Desouza NP LAB - BLOOD DRAW Final Resul t [facility] [address] [id number], [facility] [address] [address] from Last 3 Months or Most Recently Relevant to Health Maintenance Insurance [employer] Care Teams Nurse Midwife/Clinical Instructor Relationship Specialty Start Date End Date Kaleb Kim FNP [address] [place] [address] PCP - General Family Medicine, TURBINE OPERATOR 09/01/21
--- OUTSIDE RECORDS SUMMARY | 2024-06-20 16:22 | XMS_ITS | Data Portability ---
Author Organization [place] - [facility] [address] [place] [address] Care Team Providers Care Light Adjuster Name Role Phone NATHANIEL KIM Primary Care Provider Assessment No assessment recorded. Plan of Treatment Reminders Order Date Submit Date Provider Last Modified By Organization Details Last Modified Time Details Appointments None recorded. Lab CBC w/ auto diff 2021 022 [facility], [address], [place], [address], 2 07:45:27 vitamin D, 25-hydroxy, total, serum 2021 022 [facility], [address], [place], [address], 2 07:45:27 vitamin B1 (thiamine), blood 2021 022 [facility], [facility], [address], [place], [address], 2 07:45:27 vitamin B12 + folate, serum or blood 2021 022 [facility], [facility], [place], [address], 2 07:45:28 iron + TIBC + ferritin, serum 2021 022 [facility], [address], [address], [place], [address], 2 07:45:28 folate, serum 2021 [facility], [address], [address], [place], [address], 2 07:45:28 CMP, serum or plasma 2021 [facility], [address], [address], [place], [address], 2 07:45:28 lipid panel, serum 2021 [facility], [address], [address], [place], [address], 07:45:28 Referral None recorded. Procedures None recorded. Surgeries None recorded. Imaging None recorded. Medication Orders omeprazole 40 mg capsule,del ayed release 2021 [id number], [address] [place], [place], [id number], 09:03:41 ProAir RespiClick 90 mcg/actuati on breath activated 2021 [facility] #[id number], [address] [place], [place], [id number], 09:03:42 Patient TargetsNo targets recorded. Patient InstructionsNo instructions recorded. Reason for Referral None Reported. Problems Name Problem SNOMED Code Status Onset Date Resolution Date Notes Provider Name and Address Organization Details Recorded Time Acid reflux 913071837 Active 2021 [facility] [address] 2 08:24:01 Asthma 331217862 Active 2021 [facility] [address] 2 08:24:07 Joint pain 50240233 Active 2021 Mendyaron Wells [facility], [address] 2 08:24:31 Depressive disorder 79999648 Active 2021 Mendyaron Wells [facility], [address] 2 08:24:41 Anxiety 86654685 Active 2021 Mendyaron Wells [facility], [address] 2 08:24:48 Addiction 93392379 Active 2021 used to smoke marijuana Mendyaron Wells [facility], [address] 2 08:46:32 History of bariatric surgical procedure 613109635 Active 2021 Nathaniel Kim MD [address] [place] [address], [phone], [address] 2 09:07:00 Multiple joint pain 76371173 Active 2021 Nathaniel Kim MD [address] [place] [address], [phone], [address] 2 13:15:33 Problem Notes None recorded. Procedures Surgical History Date Name Laterality Status Provider Name and Address Organization Details Recorded Time 022 Malcolm-en-Y gastrojejunostomy completed Mendy GERRY [facility] [address] 04/28/2022 08:48:11 Imaging Results None recorded. [...] Available Not Avai lable Vitals Date Recorded Pain severity - 0-10 verbal numeric rating [Score] - Reported Provider Name and Address Organization Details Last Updated DateTime 04/28/2022 0 [facility]y [facility] [address] 04/28/2022 08:19:22 Date Recorded Body weight Provider Name an d Address Organization Details Last Updated DateTime 04/28/2022 55407.63 g Ronal Mauro PN [facility] [address] 04/28/2022 08:44:56 Date Recorded Body height Provider Name an d Address Organization Details Last Updated DateTime 04/28/2022 165.1 cm Ronal Mauro [facility] [address] 04/28/2022 08:44:58 Date Recorded Body mass index (BMI) Provider Name and Address Organization Details Last Updated DateTime 04/28/2022 30 kg/m2 Ronal Mauro [facility] [address] 04/28/2022 08:45:06 Date Recorded Body temperature Provider Name a nd Address Organization Details Last Updated DateTime 04/28/2022 97.4 [degF] Mendy Wells [facility] [address] 04/28/2022 08:45:10 Date Recorded Heart rate Provider Name an d Address Organization Details Last Updated DateTime 04/28/2022 65 /min Ronal Mauro PN [facility] [address] 04/28/2022 08:45:19 Date Recorded Respiratory rate Provider Name a nd Address Organization Details Last Updated DateTime 04/28/2022 18 /min Mendy Wells [facility] [address] 04/28/2022 08:45:21 Date Recorded Oxygen saturation Oxygen saturation in Arterial blood by Pulse oximetry Provider Name and Address Organization Details Last Updated DateTime 04/28/2022 98 % 98 % Mendy Wells [facility] [address] 04/28/2022 08:45:24 Date Recorded Systolic blood pressure Diastolic blood pressure Provider Name and Address Organization Details Last Updated DateTime 04/28/2022 118 mm[Hg] 76 mm[Hg] Mendy [facility] [address] 04/28/2022 08:45:16 Social History Question Answer Notes LastModified by Organizat ion Details LastModified Time Tobacco Smoking Status Former Smoker Mendy Wells [facility] null, [place] - [facility] [place] 04/28/2022 08:47:26 Do You Have An Advance [...] Do You Have A Medical Power Of Jelly Filter Tender? No Information not available 04/28/2022 What Was [...] 2021 08:26:11 Unspecified Relation Hypertensive disorder more g Not available 04/28/2022 08:26:11 Medical History Condition Response Depression Y Anxiety Y Asthma Y GERD/Reflux Y Anxiety/Depression Y Anemia Y Past Encounters Encounter ID Performer Location Encounter Start Date Encounter Closed Date Diagnosis/Indication Diagnosis SNOMED-CT Code Diagnosis ICD10 Code Diagnosis Note [id number] Nathaniel Kim MD [place] [facility] [address] [facility] [address] [place] [address] 04/28/2022 07:52:46 04/28/2022 09:54:36 Renewal of prescription 483807174 Z76.0 History of bariatric surgical procedure 782034412 Z98.84 Patient had bariatric surgery September 15, 2021 in [facility] prior to procedure he was weighing greater than 350 pounds he is currently weighing 180 pounds Multiple joint pain 3567 8005 M25.50 Health Concerns Section Related Observation LastModified by Organization Detai ls LastModified Time None Recorded Concern Status LastModified by Organization Details LastModified Time None Recorded Advance Directives Directive N: Payers Encounter Date Sequence Insurance Name Policy Number Policy Harmon Covered Member ID Haromn Member ID Guarantor Name 04/28/2022 1 [facility]: [employer] (HMO) [id number] Danny Goodwin [id number] Danny Goodwin Notes Date Note Type Note Provider Name and Address Organization Details Recorded Time 04/28/2022 text/html Pleasant 27-year-old male patient is here to establish care with a past medical history significant for bariatric surgery Done at [facility] Dated September 15, 2021. Prior to bariatric surgery patient was weighing greater than 350 pounds.Today patient weighs 180 pounds.Patient is concerned about his electrolytes and vitamin level and would like to have Labs performed.Medical history significant for anxiety depression, asthma previous history of marijuana use and acid reflux.Multiple fasting and nonfasting labs ordered.RTC in 30 days. Nathaniel Kim MD [facility] [place], [address], [facility] [place] 04/28/2022 13:24:26
--- OUTSIDE RECORDS SUMMARY | 2024-06-20 16:22 | XMS_ITS | Continuity of Care Document ---
Author Organization [facility] Address [address] [place] [address] Phone Care Team Providers Care Termite Treater Helper Name Role Phone Baylee OD OD, Kevin [...] Providers Copied on Encounter [facility], [address] [place] [address], [id number], [place] tel:[phone] [facility] vision exam (chief complaint) Myopia, bilateral Baylee OD Kevin. [address] [place] [address], [id number], [place]. tel:[phone] Referring Provider: Owen Sanchez, [address] [place] [address], [id number]. tel:[phone] Family History Family Member Type Diagnosis Age At Onset No Information Payers Payer name Insurance type Covered democrat ID Guadalupe wellington(s) [employer] [id number] Social History Type Description Quantity Date Captured [...]
--- OUTSIDE RECORDS SUMMARY | 2024-06-20 16:22 | XMS_ITS | Continuity of Care Document ---
Author Name Alli Carlos Alberto Address [address] [place] [address] Organization Unknown Address [address] [place] [address] Medications No known medications Problems No known problems
--- OUTSIDE RECORDS SUMMARY | 2024-06-20 16:22 | XMS_ITS | Clinical Summary ---
Author Organization [facility] ity Address [address] [place] [address] Care Team Providers Care Utility Bill Collection Clerk Name Role Phone Unavailable Primary Care Provider Unavailabl e Social History Tobacco Use Types Packs/Day Years Used Date Smoking Tobacco: Never Assessed Sex and Gender Information Value Date Recorded Sex Assigned at Not on file Gender Identity Not on file Sexual Orientation Not on file Plan of Treatment Health Maintenance Due Date Last Done Comments DTaP,Tdap,and Td Vaccines (1 - Tdap) 01/13/2012 Hepatitis B Vaccines (1 of 3 - 19+ 3-dose series) 01/13/2012 COVID-19 Vaccine (2023-2 5 season) 2024 Influenza Vaccine (#1) 2024 Depression Screening 02/29/2024 HIV Screening 02/29/2024 Hepatitis C Screening 02/29/2024 Social Influencers of Health Screening 02/29/2024 HIB Vaccines Aged Out No longer eligi ble based on patient's age to complete this topic HPV Vaccines Aged Out No longer eligi ble based on patient's age to complete this topic Hepatitis A Vaccines Aged Out No long er eligible based on patient's age to complete this topic IPV Vaccines Aged Out No longer eligi ble based on patient's age to complete this topic MMR Vaccines Aged Out No longer eligi ble based on patient's age to complete this topic Meningococcal ACWY Vaccine Aged Out N o longer eligible based on patient's age to complete this topic Pneumococcal Vaccine: Pediat rics (0 to 5 Years) and At-Risk Patients (6 to 64 Years) Aged Out No longer eligible b ased on patient's age to complete this topic RSV Immunization Patients Un amor 20 months Aged Out No longer eligible b ased on patient's age to complete this topic Varicella Vaccines Aged Out No longer eligible based on patient's age to complete this topic
== END 2024-06-20 13:33 | disposition home or self-care (01) ==
PROVIDERS: Visit Provider Internal Medicine Gastroenterology
DX: D50.0 Iron deficiency anemia secondary to blood loss (chronic) (principal); K28.9 Gastrojejunal ulcer, unspecified as acute or chronic, without hemorrhage or perforation
CPT/HCPCS: 99214

== ENCOUNTER → 2024-06-20 12:32 | Outpatient (BNVA) | payer OTHER, SELFPAY | PROVIDERS: Visit Provider Internal Medicine Gastroenterology | DX: D50.0 Iron deficiency anemia secondary to blood loss (chronic) (principal); K28.9 Gastrojejunal ulcer, unspecified as acute or chronic, without hemorrhage or perforation; Z71.2 Person consulting for explanation of examination or test findings | CPT/HCPCS: 99212 ==